=== PATIENT | female | born 1935 | race Caucasian/White ===

== ENCOUNTER 2023-06-27 11:23 | Emergency (ER) | payer OTHER, SELFPAY ==
[2023-06-27 11:31] VITALS: BP 124/65
[2023-06-27 12:10] VITALS: BMI 25.1
[2023-06-27 12:35] LABS: % Basophils 0.2 % (0-2); % Eosinophils 1.1 % (0-6); % Immature Granulocytes 0.5 % (0-0.5); % Monocytes 7.7 % (1.7-9.3); % Neutrophils 80.5 % (42.2-75.2); Absolute Eosinophils 0.1 10^3/uL (0-0.7); Absolute Lymphocytes 0.8 10^3/uL (1.2-3.4); Absolute Monocytes 0.6 10^3/uL (0.1-0.6); Absolute Neutrophils 6.6 10^3/uL (1.4-6.5); Hematocrit 23.9 % (37.0-47.0); Hemoglobin 7.3 g/dL (12.0-16.0); Mean Corp Hgb Conc. 30.5 g/dL (33.0-37.0); Mean Corpuscular Hgb 24.4 pg (27.0-31.0); Mean Corpuscular Volume 79.9 fL (81.0-99.0); Mean Platelet Volume 9.3 fL (7.4-10.4); Nucleated Red Blood Cells % 0 %; Platelet Count 268 10^3/uL (130-400); Red Blood Cell Count 2.99 10^6/uL (4.20-5.40); Red Cell Dist. Width 15.4 % (11.5-14.5); White Blood Cell Count 8.2 10^3/uL (4.8-10.8)
[2023-06-27 12:53] LABS: ALT (SGPT) 34 U/L (0-35); AST (SGOT) 29 U/L (14-36); Alkaline Phosphatase 115 U/L (38-126); Blood Urea Nitrogen 32 mg/dl (7-17); Calcium 8.3 mg/dl (8.4-10.2); Carbon Dioxide 26 mmol/L (22-30); Chloride 107 mmol/L (98-107); Estimated Creatinine Clearance 29 ml/min; Glucose 190 mg/dl (70-99); Potassium 4.3 mmol/L (3.5-5.1); Sodium 135 mmol/L (135-145); Total Bilirubin 0.6 mg/dl (0.2-1.3); Total Protein 5.1 g/dl (6.3-8.2); eGFR 44.08
[2023-06-27 13:24] VITALS: BP 129/51
[2023-06-27 14:00] VITALS: BP 139/61
[2023-06-27 14:01] LABS: Iron 33 ug/dl (37-170)
[2023-06-27 14:11] LABS: Percent Saturation 8 % (20-50); Total Iron Binding Capacity 370 ug/dl (265-497)
--- NOTE | 2023-06-27 14:13 | ED.GENMED ---
History of Present Illness
General
Chief Complaint: Abnormal Lab Value
Source: patient and family
Exam Limitations: none
Time Seen by Provider: 06/27/23 11:53
Travel History
Have you had any contact with someone who has COVID-19?: No
Do you have any symptoms of coronavirus? Fever > 100 degrees, chills, cough, shortness of breath, sore throat, loss of taste or smell, muscle aches, or headache?: No
History of Present Illness
History of Present Illness:
Patient presents to ED for evaluation after routine outpatient blood work revealed low hemoglobin. Denies dizziness or weakness. Denies shortness of breath. Denies fatigue. Denies recent illness. Denies recent change in medications or diet.
Patient does have history of anemia and takes iron supplement daily. Denies seeing blood with urination or in her colostomy bag.
Past History
Past History
ED Past Medical History: Arrthythmia, Cancer, CVA, HTN, Hypercholesterolemia, NIDDM and Other (Peripheral neuropathy due to chemotherapy)
ED Past Surgical History: Bowel resection
Social History
Tobacco: Non-smoker
Alcohol: None
Drug: None
Living: with family
Employment: Not employed
Family History
Family History: Hypertension
Review of Systems
Review of Systems
Allergies reviewed?: Yes
All Other Systems: ROS reviewed and negative except as documented in HPI and ROS
Constitutional: Reports no symptoms
EENT: Reports no symptoms
Respiratory: Reports no symptoms
Cardiac: Reports no symptoms
ABD/GI: Reports no symptoms
: Reports no symptoms
Musculoskeletal: Reports no symptoms
Skin: Reports no symptoms
Neurological: Reports no symptoms
Phy Exam
Physical Exam
Physical Exam:
Physical Exam
General: no apparent distress, not acutely ill. afebrile
Head: nc/at. eomi
Neck: supple. normal range of motion.
Heart: s1/s2 regular rate and rhythm, no murmur. equal radial pulses.
Lungs: no acute respiratory distress. clear bilaterally
Abdomen: normal bowel sounds. not tender.
Neuro: alert and oriented. no focal neurological deficits
Skin: no rash
Psychiatric: well kept. interactive and cooperative
Extremities: no edema. no calf tenderness.
Course
Orders/Labs/Results
Orders:
Orders
06/27/23 11:54
IV Insert/Care/Rem.- Treatment PRN
06/27/23 12:14
Type+Screen Urgent
Complete Blood Count/With Diff Urgent
Comprehensive Metabolic Panel Urgent
Ferritin Urgent
Comment: ADD ON
Iron Urgent
Comment: ADD ON
Total Iron Binding Urgent
Comment: ADD ON
06/27/23 12:52
Add On- LAB Urgent
Tests Added?: iron, tibc, ferritin
Abnormal Lab Results
06/27/23
12:14
RBC 2.99 L 10^6/uL
(4.20-5.40)
Hgb 7.3 L g/dL
(12.0-16.0)
Hct 23.9 L %
(37.0-47.0)
MCV 79.9 L fL
(81.0-99.0)
MCH 24.4 L pg
(27.0-31.0)
MCHC 30.5 L g/dL
(33.0-37.0)
RDW 15.4 H %
(11.5-14.5)
Absolute Neuts (auto) 6.6 H 10^3/uL
(1.4-6.5)
Absolute Lymphs (auto) 0.8 L 10^3/uL
(1.2-3.4)
Neutrophils % 80.5 H %
(42.2-75.2)
Lymphocytes % 10.0 L %
(20.5-51.1)
BUN 32 H mg/dl
(7-17)
Creatinine 1.2 H mg/dL
(0.6-1.0)
Glucose 190 H mg/dl
(70-99)
Calcium 8.3 L mg/dl
(8.4-10.2)
Iron 33 L ug/dl
(37-170)
% Saturation 8 L %
(20-50)
Total Protein 5.1 L g/dl
(6.3-8.2)
Albumin 3.0 L g/dl
(3.5-5.0)
06/27/23 12:14
06/27/23 12:14
Vital Signs
Initial and Last Documented VS:
Initial Vital Signs
Temp Pulse Resp BP Pulse Ox
97.8 F 75 20 124/65 98
06/27/23 11:31 06/27/23 11:31 06/27/23 11:31 06/27/23 11:31 06/27/23 11:31
Last Documented Vital Signs
Temp Pulse Resp BP Pulse Ox
97.8 F 60 20 139/61 97
06/27/23 11:31 06/27/23 14:15 06/27/23 14:15 06/27/23 14:00 06/27/23 14:15
MDM/Problems Addressed
MDM/Problems Addressed:
H&H noted. However, patient remains afebrile and he, hemodynamically stable, and nontoxic-appearing.
Discussed with Dr. Hensley, hematology -recommends increasing patient's iron supplement to 325 mg daily or 325 mg every other day, if unable to tolerate. Will follow-up with the patient as an outpatient, including potential iron infusion as an
outpatient, if patient does not respond appropriately.
*Critical Care Note
Total Time (30-74mins, 75-104mins- exclusive of procedures): Not Applicable
ED Attending Note
-
Portions of this chart may have been created with voice recognition software.� Occasional wrong word or��sound alike� substitutions may have occurred due to the inherent limitations of voice recognition software.
Discharge Plan
Departure
Patient Disposition: Home (Routine Discharge)
Date of Disposition: 06/27/23
Time of Disposition: 14:40
Patient with high blood pressure during this ER visit?: Yes
Discharge Problem:
Iron deficiency anemia
Instructions: Anemia, Possibly From Low Iron, Adult ED
Prescriptions:
No Action
Lumigan 1 DROP drops
1 drp BOTH EYES QPM
Xarelto 15 MG tablet
15 mg PO QPM
magnesium oxide 400 MG capsule
400 mg PO HS
Simbrinza 1 DROP drops,suspension
1 drp BOTH EYES BID
atorvastatin 40 MG tablet
40 mg PO QPM
amiodarone [Pacerone] 200 MG tablet
200 mg PO DAILY
levetiracetam [Keppra] 500 mg Tablet
500 mg PO BID
bumetanide 0.5 mg Tablet
0.5 mg PO QPM
multivitamin Tablet
1 tab PO DAILY
ferrous sulfate [Iron (ferrous sulfate)] 325 mg (65 mg iron) Tablet
325 mg PO DAILY
carvedilol 25 mg Tablet
25 mg PO BID
ascorbic acid (vitamin C) 500 mg Tablet
500 mg PO MOWEFR
cholecalciferol (vitamin D3) [Vitamin D3] 25 mcg (1,000 unit) Tablet
25 mcg PO DAILY
levothyroxine [Synthroid] 50 mcg Tablet
50 mcg PO DAILY
Referrals:
Yolis Caicedo MD [Family Provider] -
Willian Hensley MD [Active] -
Activity Restrictions/Additional Instructions:
As discussed, please follow up with referred child and adolescent therapist for further evaluation and treatment. In the meantime, please increase your iron intake to 325 mg daily or 325 mg every other day, if unable to tolerate. Please return to ED with worsening
symptoms, i.e. dizziness/weakness/shortness of breath/bleeding.
Interventions
Interventions:
*Risk Screen - Suicide Last Done: 06/27/23 15:29
*General Assessment Last Done: 06/27/23 15:29
*Neglect/Abuse Screening Last Done: 06/27/23 15:29
ED- Fall Risk Assessment Last Done: 06/27/23 15:29
*ED COVID-19 Vaccine History Last Done: 06/27/23 11:31
*Nursing Disposition Last Done: 06/27/23 15:29
Discharge Date and Time
Discharge Date/Time: 06/27/23 15:31
[2023-06-27 14:36] LABS: Ferritin 39.6 ng/ml (11.1-264.0)
== END 2023-06-27 15:31 | disposition home or self-care (01) ==
LOC: EMR 11:23
PROVIDERS: EMERGENCY PHYSICIAN Emergency Medicine; FAMILY PHYSICIAN Family Medicine
DX: D50.9 Iron deficiency anemia, unspecified (principal); E78.00 Pure hypercholesterolemia, unspecified; I10 Essential (primary) hypertension; Z82.49 Family history of ischemic heart disease and other diseases of the circulatory system; Z86.73 Personal history of transient ischemic attack (TIA), and cerebral infarction without residual deficits
CPT/HCPCS: 99283; 80053; 82728; 83540; 83550; 85025; 86850; 86900; 86901

== ENCOUNTER → 2023-07-09 12:09 | Outpatient (REF) | payer OTHER, SELFPAY ==
[2023-07-09 12:39] LABS: % Basophils 0.3 % (0-2); % Eosinophils 1.4 % (0-6); % Immature Granulocytes 0.8 % (0-0.5); % Lymphocytes 9.3 % (20.5-51.1); % Monocytes 6.1 % (1.7-9.3); % Neutrophils 82.1 % (42.2-75.2); Absolute Eosinophils 0.1 10^3/uL (0-0.7); Absolute Immature Granulocytes 0.1 10^3/uL (0-0.05); Absolute Lymphocytes 0.7 10^3/uL (1.2-3.4); Absolute Monocytes 0.5 10^3/uL (0.1-0.6); Absolute Neutrophils 6.4 10^3/uL (1.4-6.5); Hematocrit 23.4 % (37.0-47.0); Mean Corp Hgb Conc. 29.9 g/dL (33.0-37.0); Mean Corpuscular Hgb 24.3 pg (27.0-31.0); Mean Corpuscular Volume 81.3 fL (81.0-99.0); Mean Platelet Volume 9.7 fL (7.4-10.4); Nucleated Red Blood Cells % 0 %; Platelet Count 294 10^3/uL (130-400); Red Blood Cell Count 2.88 10^6/uL (4.20-5.40); Red Cell Dist. Width 18.4 % (11.5-14.5); White Blood Cell Count 7.8 10^3/uL (4.8-10.8)
[2023-07-09 12:46] LABS: Iron 37 ug/dl (37-170)
[2023-07-09 12:56] LABS: Percent Saturation 9 % (20-50); Total Iron Binding Capacity 374 ug/dl (265-497)
[2023-07-09 18:33] LABS: Ferritin 54.4 ng/ml (11.1-264.0)
== END ==
LOC: OIDL 12:09
PROVIDERS: ATTENDING PHYSICIAN Nurse Practitioner Adult Health
DX: C55 Malignant neoplasm of uterus, part unspecified (principal); C20 Malignant neoplasm of rectum; D50.9 Iron deficiency anemia, unspecified
CPT/HCPCS: 82728; 83540; 83550; 85025

== ENCOUNTER → 2023-07-16 11:28 | Outpatient (REF) | payer OTHER, SELFPAY ==
[2023-07-16 11:05] LABS: % Basophils 0.4 % (0-2); % Eosinophils 0.9 % (0-6); % Immature Granulocytes 0.6 % (0-0.5); % Lymphocytes 6.7 % (20.5-51.1); % Monocytes 5.5 % (1.7-9.3); % Neutrophils 85.9 % (42.2-75.2); Absolute Eosinophils 0.1 10^3/uL (0-0.7); Absolute Immature Granulocytes 0.1 10^3/uL (0-0.05); Absolute Lymphocytes 0.6 10^3/uL (1.2-3.4); Absolute Monocytes 0.5 10^3/uL (0.1-0.6); Hemoglobin 7.1 g/dL (12.0-16.0); Mean Corp Hgb Conc. 28.4 g/dL (33.0-37.0); Mean Corpuscular Hgb 24.4 pg (27.0-31.0); Mean Corpuscular Volume 85.9 fL (81.0-99.0); Mean Platelet Volume 9.4 fL (7.4-10.4); Nucleated Red Blood Cells % 0 %; Platelet Count 291 10^3/uL (130-400); Red Blood Cell Count 2.91 10^6/uL (4.20-5.40); Red Cell Dist. Width 22.1 % (11.5-14.5); White Blood Cell Count 8.2 10^3/uL (4.8-10.8)
[2023-07-16 11:37] LABS: Vitamin D, 25-OH*** 52.5 ng/mL (30-80)
== END ==
LOC: OIDL 11:28
PROVIDERS: ATTENDING PHYSICIAN Internal Medicine Hematology & Oncology
DX: C55 Malignant neoplasm of uterus, part unspecified (principal)
CPT/HCPCS: 82306; 85025

== ENCOUNTER → 2023-07-23 15:24 | Outpatient (REF) | payer OTHER, SELFPAY ==
[2023-07-23 11:33] LABS: Phosphorus 2.5 mg/dl (2.5-4.5)
[2023-07-23 11:34] LABS: % Basophils 0.4 % (0-2); % Eosinophils 1.4 % (0-6); % Immature Granulocytes 0.7 % (0-0.5); % Lymphocytes 6.8 % (20.5-51.1); % Neutrophils 85.7 % (42.2-75.2); Absolute Eosinophils 0.1 10^3/uL (0-0.7); Absolute Immature Granulocytes 0.1 10^3/uL (0-0.05); Absolute Lymphocytes 0.6 10^3/uL (1.2-3.4); Absolute Monocytes 0.4 10^3/uL (0.1-0.6); Hematocrit 27.4 % (37.0-47.0); Hemoglobin 7.8 g/dL (12.0-16.0); Mean Corp Hgb Conc. 28.5 g/dL (33.0-37.0); Mean Corpuscular Hgb 25.2 pg (27.0-31.0); Mean Corpuscular Volume 88.7 fL (81.0-99.0); Mean Platelet Volume 9.8 fL (7.4-10.4); Nucleated Red Blood Cells % 0 %; Platelet Count 286 10^3/uL (130-400); Red Blood Cell Count 3.09 10^6/uL (4.20-5.40); Red Cell Dist. Width 25.4 % (11.5-14.5); White Blood Cell Count 8.1 10^3/uL (4.8-10.8)
== END ==
LOC: OIDL 15:24
PROVIDERS: ATTENDING PHYSICIAN Nurse Practitioner Adult Health
DX: C55 Malignant neoplasm of uterus, part unspecified (principal)
CPT/HCPCS: 84100; 85025

== ENCOUNTER → 2023-08-29 16:07 | Outpatient (REF) | payer OTHER, SELFPAY ==
[2023-08-29 16:31] LABS: % Basophils 0.2 % (0-2); % Eosinophils 0.5 % (0-6); % Immature Granulocytes 0.7 % (0-0.5); % Lymphocytes 3.4 % (20.5-51.1); % Neutrophils 90.2 % (42.2-75.2); Absolute Eosinophils 0.1 10^3/uL (0-0.7); Absolute Immature Granulocytes 0.1 10^3/uL (0-0.05); Absolute Lymphocytes 0.4 10^3/uL (1.2-3.4); Absolute Monocytes 0.5 10^3/uL (0.1-0.6); Absolute Neutrophils 9.3 10^3/uL (1.4-6.5); Hematocrit 40.9 % (37.0-47.0); Hemoglobin 12.1 g/dL (12.0-16.0); Mean Corp Hgb Conc. 29.6 g/dL (33.0-37.0); Mean Corpuscular Hgb 27.5 pg (27.0-31.0); Mean Platelet Volume 9.9 fL (7.4-10.4); Nucleated Red Blood Cells % 0 %; Platelet Count 233 10^3/uL (130-400); White Blood Cell Count 10.4 10^3/uL (4.8-10.8)
[2023-08-29 16:43] LABS: Blood Urea Nitrogen 25 mg/dl (7-17); Calcium 9.5 mg/dl (8.4-10.2); Carbon Dioxide 33 mmol/L (22-30); Chloride 101 mmol/L (98-107); Glucose 165 mg/dl (70-99); Sodium 138 mmol/L (135-145); eGFR > 60.00
[2023-08-29 16:49] LABS: Potassium 4.4 mmol/L (3.5-5.1)
[2023-08-29 17:00] LABS: NT-proBNP 2300 pg/ml
== END ==
LOC: REG 16:07
PROVIDERS: ATTENDING PHYSICIAN Family Medicine
DX: I50.41 Acute combined systolic (congestive) and diastolic (congestive) heart failure (principal); D64.9 Anemia, unspecified
CPT/HCPCS: 36415; 71046; 80048; 83880; 85025

== ENCOUNTER 2023-08-31 06:35 | Inpatient (IN) | payer OTHER, SELFPAY ==
[2023-08-31] VITALS (15 sets, daily range): BP systolic 101–154; BP diastolic 53–81; BMI 29.7; BMI 28.9
--- NOTE | 2023-08-31 04:32 | ED.GENMED ---
History of Present Illness
General
Chief Complaint: Breathing Problem
Source: patient
Exam Limitations: none
Time Seen by Provider: 08/31/23 04:27
Nursing documentation reviewed up to this point in time: agreed with
Travel History
Have you had any contact with someone who has COVID-19?: No
Do you have any symptoms of coronavirus? Fever > 100 degrees, chills, cough, shortness of breath, sore throat, loss of taste or smell, muscle aches, or headache?: No
History of Present Illness
History of Present Illness:
Pleasant 88-year-old female that presents with difficulty breathing. This has been going on for several days but tonight it worsened. She does report a cough. Patient had a COVID test yesterday which was negative. She has been treated by
[facility] for iron deficiency anemia. She is taking the medications as directed. Denies chest pain or abdominal pain.
Past History
Past History
ED Past Medical History: Arrthythmia, Cancer, CVA, HTN, Hypercholesterolemia, NIDDM and Other (Peripheral neuropathy due to chemotherapy)
ED Past Surgical History: Bowel resection
Social History
Tobacco: Non-smoker
Alcohol: None
Drug: None
Living: with family
Employment: Not employed
Family History
Family History: Hypertension
Phy Exam
General Physical Exam
General Presentation: moderate distress and mild distress
General age: appears older than age
General Skin: warm and dry
General Habitus: elderly and frail
General Mental: alert and usual mental status
General Hydration: appears well hydrated
ENT Exam
ENT Exam: EOMI, pharynx normal, neck supple and normocephalic
Eye Exam
Eye Exam: PERRL, cornea clear and conjunctiva normal
Cardiovascular Exam
Cardiovascular Exam: regular rate/rhythm
Pulmonary Exam
Pulmonary Exam: generalized wheezing and respiratory distress
Oxygen Status: oxygen 2 liters via NC
Gastrointestinal Exam
Gastrointestinal Exam: normal bowel sounds, non tender, soft, no organomegaly, no pulsatile mass and non distended
Neurological Exam
Neurological Exam: alert, oriented x3, no motor deficits and speech normal
Musculoskeletal Exam
Musculoskeletal Exam: edema
Skin Exam
Skin Exam: normal color, warm/dry, no rash and no petechia
Psychiatric Exam
Psychiatric Exam: normal mood/affect
Scores
Heart Failure Risk
Heart Failure Risk Score: Yes
History of Stroke or TIA: Yes
History of intubation for respiratory distress: No
Heart rate on ED arrival >/= 110: No
SaO2 <90% on arrival on room air: Yes
HR >/=110 during 3min walk test (or too ill to perform test): Yes
ECG has acute ischemic changes: No
Urea >/=12mmol/L (BUN 33.6mg/dL): Yes
Serum CO2>/=35mmol/L: No
Troponin I or T elevated to LA Level (0.4mg/dL): No
NT-proBNP >/=5,000ng/L (5,000pg/ml): No
HF Risk Score: 5
Admission Status: VERY HIGH RISK 39.8% Consider admission to hospital
Course
Orders/Labs/Results
Orders:
Orders
08/31/23 04:37
Ipratropium/Albuterol Sulfate [Duoneb] 3 ml .ROUTE .STK-MED ONE
08/31/23 04:42
CR Chest Portable - 1 View Urgent
Comment:
Reason For Exam: dyspnea
Reason Study Needs to be Portable: Patient Unstable
08/31/23 04:44
Electrocardiogram (*1) Urgent
Reason for Study: Other
Other Reason for Exam: Respiratory Distress
Cardiac Monitoring- Treatment ONCE
EKG- Treatment ONCE
Pulse Ox/cont/shift [RESP] Urgent
Quantity: 1
Special Instructions: continuous pulse ox
08/31/23 04:45
Complete Blood Count/With Diff Urgent
Comprehensive Metabolic Panel Urgent
Ferritin Urgent
Free T4 Urgent
Iron Urgent
Lipase Urgent
NT-proBNP Urgent
Comment: ADDED
PTT Urgent
Prothrombin Time Urgent
TSH Reflex To Free T4 Urgent
Comment: ADD ON
Total Iron Binding Urgent
Troponin I Urgent
08/31/23 04:54
Albuterol Sulfate [Ventolin Nebules] 10 mg INH R NOW STA
Dexamethasone Sod Phosphate [Decadron] 10 mg IV NOW STA
08/31/23 04:55
Ipratropium/Albuterol Sulfate [Duoneb] 3 ml INH R NOW ONE
08/31/23 05:24
Add On- LAB Urgent
Tests Added?: pro bnp
08/31/23 06:05
ABG [Arterial Blood Gas] Stat
%Oxygen/Room Air: 60% on arrival
08/31/23 06:14
Add On- LAB Urgent
Tests Added?: procalcitonin level
08/31/23 06:19
Admit/Transfer Patient As Directed
Co-Sign Provider:
Level of Care: Inpatient admission
Assign to:: IMU- Intermediate Care
Physician / Group: [email or web address]
Diagnosis: Acute resp distress : see below
Reason for Hospitalization: Acute resp distress with bronchospasm
Acute hypoxic RF
CHF falre vs PNA vs acute asthmatic bronchitis
Expected length of stay greater than two midnights?: Yes
ELOS- Estimated Length of Stay in days: 5
I certify the patient meets the requirements for IP care: Yes
08/31/23 06:21
Code Status As Directed
Resuscitation Status: Full Code
08/31/23 06:26
Dexamethasone Sod Phosphate [Decadron] 10 mg IV NOW STA
08/31/23 06:32
Furosemide [Lasix] 40 mg IV NOW STA
08/31/23 06:41
Procalcitonin Urgent
Comment: PLEASE DRAW; TOO LATE TO ADD ON TO EARLIER LABS
08/31/23 08:32
Acetaminophen [Tylenol] 650 mg PO Q4HPRN PRN
Amiodarone [Pacerone] 200 mg PO DAILY
Brinzolamide/Brimonidine Tart [Simbrinza 1%-0.2% Ophth Susp] 1 drop BOTH EYES BID
Carvedilol [Coreg] 25 mg PO BID
Dextrose 50%-Water [Dextrose 50% Syringe] 12.5 grams IV [id number] PRN
Furosemide [Lasix] 40 mg IV DAILY
Glucagon [GlucaGen] 1 mg IM PRN PRN
Insulin Aspart Corrective Low [Novolog Flexpen-Low Resistance] See Protocol SC AC
Ipratropium/Albuterol Sulfate [Duoneb] 3 ml INH R Q4HPRN PRN
Ipratropium/Albuterol Sulfate [Duoneb] 3 ml INH R QID
Levetiracetam [Keppra] 500 mg PO BID
Levothyroxine [Synthroid] 50 mcg PO DAILY@0730
08/31/23 08:32
CARDIOLOGY CONSULT Routine
Consulting Provider: Jeff Salazar
Was physician already notified: No
Reason for consult: Acute resp distress : CHF flare, acute asthmatic bronchitis, vol. overload
Consult Notification Routine
Specialty to Notify: Cardiology
Date consulting provider notified: 08/31/23
Time consulting provider notified: 08:40
Notified:: Provider
Consult Notification Routine
Specialty to Notify: Pulmonary
Date consulting provider notified: 08/31/23
Time consulting provider notified: 08:40
Notified:: Provider
Activity As Directed
Activity Level: Bedrest
Bedside Glucose Monitoring As Directed
Frequency: AC&HS
Comment: Change to q6h if pt on TPN, tube feeding or not eating
Compression Sleeves [Pneumatic Compression Sleeves] As Directed
Type: Knee high
Intake/ Output As Directed
Frequency: Per unit guidelines
Vital Signs As Directed
Frequency: Per unit guidelines
Weight As Directed
Frequency: Once
Comment: on admission
Pulse Ox/spot Check [RESP] Routine
Quantity: 1
08/31/23 14:00
Dexamethasone Sod Phosphate [Decadron] 4 mg IV Q8H
08/31/23 18:00
Atorvastatin [Lipitor] 40 mg PO QPM
Bimatoprost [Lumigan 0.01%] 1 drop BOTH EYES QPM
08/31/23 19:23
Urinalysis Reflex To Culture Urgent
Date Specimen was Collected: 08/31/23
Time Specimen was Collected: 18:42
09/01/23 03:53
Complete Blood Count/No Diff IN AM
Comprehensive Metabolic Panel IN AM
Glycohemoglobin (HgbA1c) IN AM
Abnormal Lab Results
08/31/23 08/31/23
04:45 06:05
WBC 11.5 H 10^3/uL
(4.8-10.8)
Hgb 11.5 L g/dL
(12.0-16.0)
MCHC 30.1 L g/dL
(33.0-37.0)
RDW 17.8 H %
(11.5-14.5)
Abs Immat Gran (auto) 0.1 H 10^3/uL
(0-0.05)
Absolute Neuts (auto) 10.0 H 10^3/uL
(1.4-6.5)
Absolute Lymphs (auto) 0.5 L 10^3/uL
(1.2-3.4)
Absolute Monos (auto) 0.8 H 10^3/uL
(0.1-0.6)
Immature Gran % 0.8 H %
(0-0.5)
Neutrophils % 87.0 H %
(42.2-75.2)
Lymphocytes % 4.5 L %
(20.5-51.1)
PT 14.8 H Sec
(11.4-14.6)
pH 7.30 L
(7.35-7.45)
pCO2 64 H mmHg
(32-35)
pO2 114 H mmHg
(83-108)
HCO3 31.5 H mmol/L
(21-28)
ABG O2 Sat (Measured) 98.1 H %
(94-98)
Carbon Dioxide 31 H mmol/L
(22-30)
BUN 33 H mg/dl
(7-17)
Glucose 169 H mg/dl
(70-99)
% Saturation 14 L %
(20-50)
Ferritin 326.0 H ng/ml
(11.1-264.0)
AST 62 H U/L
(14-36)
ALT 71 H U/L
(0-35)
Alkaline Phosphatase 159 H U/L
(38-126)
Total Protein 5.5 L g/dl
(6.3-8.2)
Albumin 3.2 L g/dl
(3.5-5.0)
TSH (Reflex) 5.30 H uIU/ml
(0.47-4.68)
Free T4 2.72 H ng/dl
(0.78-2.19)
08/31/23 04:45
08/31/23 04:45
Vital Signs
Initial and Last Documented VS:
Initial Vital Signs
Pulse Resp BP Pulse Ox
75 28 129/75 93
08/31/23 04:17 08/31/23 04:17 08/31/23 04:17 08/31/23 04:17
Last Documented Vital Signs
Temp Pulse Resp BP Pulse Ox
96.8 F L 62 17 128/64 96
09/02/23 19:18 09/02/23 20:45 09/02/23 20:45 09/02/23 20:00 09/02/23 20:45
*Critical Care Note
Total Time (30-74mins, 75-104mins- exclusive of procedures): Not Applicable
ED Attending Note
-
Portions of this chart may have been created with voice recognition software.� Occasional wrong word or��sound alike� substitutions may have occurred due to the inherent limitations of voice recognition software.
Discharge Plan
Departure
Patient Disposition: Admit
Date of Disposition: 08/31/23
Time of Disposition: 05:57
Admit to: Telemetry
Presentation/result/management discussed w/ accepting MD/DO: Hospitalist
Patient with high blood pressure during this ER visit?: Yes
Condition: Good
Discharge Problem:
Acute dyspnea, CHF (congestive heart failure)
Interventions
Interventions:
*Risk Screen - Suicide Last Done: 08/31/23 04:17
*General Assessment Last Done: 08/31/23 04:43
*Neglect/Abuse Screening Last Done: 08/31/23 04:20
ED- Fall Risk Assessment Last Done: 08/31/23 08:38
*ED COVID-19 Vaccine History Last Done: 08/31/23 09:40
*Nursing Disposition Last Done: 08/31/23 08:38
ED- Cardiac Assessment Last Done: 08/31/23 05:11
ED- Pulmonary Assessment Last Done: 08/31/23 05:09
Discharge Date and Time
Discharge Date/Time: 08/31/23 08:38
[2023-08-31] MEDS: DUONEB 3 ML INH ×4 (04:56→20:53)
[2023-08-31 04:59] LABS: % Basophils 0.3 % (0-2); % Eosinophils 0.9 % (0-6); % Immature Granulocytes 0.8 % (0-0.5); % Lymphocytes 4.5 % (20.5-51.1); % Monocytes 6.5 % (1.7-9.3); Absolute Eosinophils 0.1 10^3/uL (0-0.7); Absolute Immature Granulocytes 0.1 10^3/uL (0-0.05); Absolute Lymphocytes 0.5 10^3/uL (1.2-3.4); Absolute Monocytes 0.8 10^3/uL (0.1-0.6); Hematocrit 38.2 % (37.0-47.0); Hemoglobin 11.5 g/dL (12.0-16.0); Mean Corp Hgb Conc. 30.1 g/dL (33.0-37.0); Mean Corpuscular Hgb 27.4 pg (27.0-31.0); Mean Platelet Volume 9.6 fL (7.4-10.4); Nucleated Red Blood Cells % 0 %; Platelet Count 206 10^3/uL (130-400); Red Cell Dist. Width 17.8 % (11.5-14.5); White Blood Cell Count 11.5 10^3/uL (4.8-10.8)
[2023-08-31] MEDS: DECADRON 10 MG IV (05:03)
[2023-08-31] MEDS: VENTOLIN NEBULES 10 MG INH (05:04)
[2023-08-31 05:10] LABS: ALT (SGPT) 71 U/L (0-35); AST (SGOT) 62 U/L (14-36); Albumin 3.2 g/dl (3.5-5.0); Alkaline Phosphatase 159 U/L (38-126); Blood Urea Nitrogen 33 mg/dl (7-17); Carbon Dioxide 31 mmol/L (22-30); Chloride 106 mmol/L (98-107); Estimated Creatinine Clearance 41 ml/min; Glucose 169 mg/dl (70-99); Iron 42 ug/dl (37-170); Lipase 37 U/L (23-300); Potassium 4.2 mmol/L (3.5-5.1); Sodium 138 mmol/L (135-145); Total Bilirubin 0.8 mg/dl (0.2-1.3); Total Protein 5.5 g/dl (6.3-8.2); eGFR 54.87
[2023-08-31 05:19] LABS: Percent Saturation 14 % (20-50); Total Iron Binding Capacity 290 ug/dl (265-497)
[2023-08-31 05:21] LABS: Troponin I < 0.012 ng/ml
[2023-08-31 05:24] LABS: APTT 31.3 Sec (23.4-35.0); INR 1.15; PT 14.8 Sec (11.4-14.6)
[2023-08-31 05:52] LABS: NT-proBNP 1930 pg/ml
--- NOTE | 2023-08-31 06:15 | HPS.HSE ---
Family Physician
-
Family Physician: Yolis Caicedo
Chief Complaint
-
acute resp distress
History of Present Illness
88F HX HFrEF, ICD implant , T2DM, CKD3 pw acute resp distress , tachypnic, SoB, cough and wheezing
NEG Covid on 08/29
POx on arrival was 60s.
Medical History
Past Medical History
Past Medical History: Reports Other
Additional Past Medical History:
CHF with ICD placement
Type 2 diabetes, suboptimal controlled.
CKD3
Abdominal aortic aneurysm.
Hemolytic anemia.
Hyponatremia.
Essential hypertension.
Paroxysmal AF
HX epistaxis
Past Surgical History: Reports Other
Additional Past Surgical History:
Rectal cancer resection.
Ostomy creation.
ICD placement.
Hysterectomy with Oophorectomy.
Cataract extraction.
Tonsillectomy.
Appendectomy.
Social History
Tobacco: Non-smoker
Alcohol: None
Drug: None
Personal:
Living: With Family
Family History
Family History: Not pertinent
Allergies / Home Medications
Allergies reflects when Allergies were last updated in [facility].
Home Medications with original date entered in [facility]
Allergy/Medication List:
Allergies
Allergy/AdvReac Type Severity Reaction Status Date / Time
amoxicillin Allergy Unknown Verified 08/31/23 04:16
erythromycin base Allergy avoids Verified 08/31/23 04:16
[Erythromycin Base] patient
taking
vytorin
Penicillins Allergy Swelling Verified 08/31/23 04:16
venom-honey bee Allergy Anaphylaxis Verified 08/31/23 04:16
[bee venom (honey bee)]
Beta-Blockers AdvReac coughing Verified 08/31/23 04:16
(Beta-Adrenergic Bloc
insect bites Allergy Swelling Uncoded 08/31/23 04:16
Home Medications
amiodarone 200 mg tablet (Pacerone) 200 mg PO DAILY Arrhythmia 11/04/20
atorvastatin 40 mg tablet 40 mg PO QPM High cholesterol 11/04/20
bimatoprost 0.01 % eye drops (Lumigan) 1 drp BOTH EYES QPM Eye condition 11/04/20
brinzolamide 1 %-brimonidine 0.2 % eye drops,suspension (Simbrinza) 1 drp BOTH EYES BID Eye condition 11/04/20
magnesium oxide 400 mg PO HS Supplement 11/04/20
bumetanide 0.5 mg tablet 0.5 mg PO QPM 12/04/22
levetiracetam 500 mg tablet (Keppra) 500 mg PO BID 12/04/22
multivitamin 1 tab PO DAILY 12/04/22
ascorbic acid (vitamin C) 500 mg tablet 500 mg PO MOWEFR 02/18/23
carvedilol 25 mg tablet 25 mg PO BID 02/18/23
cholecalciferol (vitamin D3) 25 mcg (1,000 unit) tablet (Vitamin D3) 25 mcg PO DAILY 02/18/23
levothyroxine 50 mcg tablet (Synthroid) 50 mcg PO DAILY 06/27/23
Review of Systems
-
Constitutional: Reports No Symptoms
EENT: Reports No Symptoms
Respiratory: Reports See HPI
Cardiac: Reports No Symptoms
Abdomen/GI: Reports No Symptoms
: Reports No Symptoms
Musculoskeletal: Reports No Symptoms
Skin: Reports No Symptoms
Neurological: Reports No Symptoms
Endocrine: Reports No Symptoms
Hematologic/Lymphatic: Reports No Symptoms
Psych: Reports No Symptoms
Physical Exam
Vital Signs
Vital Signs
Pulse Resp BP Pulse Ox
60 20 112/60 99
08/31/23 06:00 08/31/23 06:00 08/31/23 06:00 08/31/23 05:15
Physical Exam
General: Respiratory Distress
HEENT: NormoCephalic, Anicteric and Moist mucous membranes
Respiratory: Wheezes (biphasic )
Cardiac: S1/S2, Regular Rhythm and Other (V paced rythym )
Breast: Deferred by me
GI: Soft, Non Tender and Non Distended
Genito-urinary: Deferred by me
Musculoskeletal: Edema, Left Lower Extremity (3plus) and Edema, Right Lower Extremity (3plus )
Skin: Warm
Neuro: AO x 3
Psych: Calm
Laboratory Results
-
08/31/23 04:45
08/31/23 04:45
Laboratory Results
PT 14.8 Sec (11.4-14.6) H 08/31/23 04:45
INR 1.15 08/31/23 04:45
APTT 31.3 Sec (23.4-35.0) 08/31/23 04:45
Total Bilirubin 0.8 mg/dl (0.2-1.3) 08/31/23 04:45
AST 62 U/L (14-36) H 08/31/23 04:45
ALT 71 U/L (0-35) H 08/31/23 04:45
Alkaline Phosphatase 159 U/L (38-126) H 08/31/23 04:45
Troponin I < 0.012 ng/ml 08/31/23 04:45
Lipase 37 U/L (23-300) 08/31/23 04:45
Data Reviewed
-
Diagnostic Radiology: Image Personally Visualized and interpreted
Medical Tests (Nuc Med, Echo, EKG etc): Image Personally Visualized and interpreted
Lab Data: Labs Reviewed by me
Old Records: Reviewed
Impression/Plan
-
Reviewed VS: Temp ( ? ) HR 70 BP 120/80 RR 33 POx 60 on arrival , now 90 %
Data
WCC 11.5
Hgb 11.5 - was 12.1 on 08/28
CO2 31 - baseline is mid 20s
Cr 1.0 - baseline mid to hi 1s ??
eGFR 55 - baseline is mid 40s
AST 62
ALT 71
NEG TPNI
pBNP 1930 - usually 2300
Pending PCT
My view on CXR ??? CHF
EKG report
Ventricular-paced rhythm
ABNORMAL ECG
WHEN COMPARED WITH ECG OF 04-DEC-2022 08:57,
NO SIGNIFICANT CHANGE WAS FOUND
10/03/21 TTE
LVEF 40-45
mild LVH
Diastolic function indeterminate (AF).
Mild to moderate mitral regurgitation.
Mild aortic stenosis.
Mild aortic regurgitation.
Mild tricuspid regurgitation.
Small pericardial effusion.
Last hospitalist admission: 11/04/20 - 11/10/20 DC Dxs:
Multifactorial, progressive bilateral lower extremity weakness du to advanced Lumbar spinal stenosis, advanced.
Multifactorial peripheral neuropathy
JARED
ASSESSMENT & PLAN
Acute Resp distress with bronchospasm : CHF flare precipitated by acute asthmatic bronchitis +/_ Rt sided PNA
Acute hypoxic RF with bronchospasm
Hypercarbia - CO2 retention vs contraction alkalosis
HX CHF with LVEF 40-45 with stable pro BNP
Volume overload
- stat ABG
- check PCT
- Empiric IV Zosyn pending PCT
- IV Lasix 40 daily
Duoneb qid and PRB
- IV Decadron 4mg q8h
- O2 support to keep POx > 93
- f/u final CXR repor
- Consult: Pul, DCA Card
Abn LFTs; mild
suspect hepatic congestion to CHF AE
- tremnd LFts
HX Prx AF
ICD implant
- Non longer on Xarelto due to sevee anemia and concern for GIB
- Amiodarone and Carvedilol
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
HLD:
CHF with ICD placement : on Bumex and carvedilol
Type 2 diabetes,: add ISS low
CKD3
Hypothyroid: on LT4
Abdominal aortic aneurysm.
Essential hypertension.
HX epistaxis
- cont OP Meds
DVT Px; SQH
Code: full
IMU
[2023-08-31 06:22] LABS: B.E. 3.7 mmol/L; HCO3 31.5 mmol/L (21-28); O2 Saturation % 98.1 % (94-98); PCO2 64 mmHg (32-35); PO2 114 mmHg (83-108)
[2023-08-31 06:24] LABS: O2 Therapy 60% on arrival
[2023-08-31 07:16] LABS: Procalcitonin < 0.05 ng/ml (0.0-0.25)
[2023-08-31] MEDS: SYNTHROID 50 MCG PO (08:55)
[2023-08-31] MEDS: LASIX 40 MG IV (09:30)
[2023-08-31] MEDS: KEPPRA 500 MG PO ×2 (09:31→20:13)
[2023-08-31] MEDS: PACERONE 200 MG PO (09:31)
[2023-08-31] MEDS: DUONEB INH (09:31)
[2023-08-31] MEDS: COREG 25 MG PO ×2 (09:32→20:13)
[2023-08-31] MEDS: HEPARIN 5000 UNITS SC ×2 (09:32→20:12)
[2023-08-31] MEDS: FLUSH (NSS) 1 FLUSH IV ×2 (09:33→15:45)
--- NOTE | 2023-08-31 09:41 | CON.CAR ---
Addendum entered and electronically signed by Jeff Salazar MD 08/31/23 12:48:
I saw and examined the patient.
The Ground Equipment Mechanic's note was reviewed and I agree with the note.
Comment:
GEN: No distress, awake, Ox3
HEENT: supple, anicteric, mmm
LUNGS: Bilateral rhonchi
CV: Reg, S1/S2, 1/6 syst LSB, S3+
ABD: soft, BS+, NT/ND
EXT: No edema
NEURO: Gross non-focal
SKIN: No rash
Plan:
She has a past medical history of chronic heart failure with mildly reduced ejection fraction, ICD, paroxysmal atrial fibrillation, hypertension, diabetes, and iron deficiency anemia. She presents with 5 to 6 pound weight gain, shortness of breath,
fatigue, and dyspnea on exertion. Chest x-ray suggests pulmonary vascular congestion and a small pleural effusion. Patient states she has been compliant with her diuretics.
Start Lasix 40 mg IV twice daily. Follow creatinine.
She remains AV paced. Continue amiodarone. Anticoagulation which was stopped because of anemia. Hemoglobin is overall stable at 11.5. Previous hemoglobins were in the 7 range.
Continue carvedilol. She has not tolerated guideline directed medical therapy in the past because of renal insufficiency. Will follow her creatinine for the next 24 hours or so. Could consider adding low-dose WALKER inhibitor to start.
Will hold on Jardiance for now with frequent urinary issues
Original Note:
Consultation
Consultation Request
Date/Time Consultation Performed: 08/31/23
Requesting Provider: Dr. Concepcion
Performing Provider: Tori Garcia PA-C for Dr. Salazar
Reason for Consultation: CHF
Medical History
-
Chief Complaint: SOB
History of Present Illness:
Patient is an 88-year-old female with past medical history of paroxysmal atrial fibrillation on chronic amiodarone therapy, cardiomyopathy with partial recovery with EF 40 to 45% by echo in 2021, chronic systolic congestive heart failure, status
post ICD, hypertension, hyperlipidemia, DM, TIA/CVA, iron deficiency anemia with Xarelto stopped 06/2023 who presents to [facility] for evaluation of shortness of breath and cough. Reports over the last week has noted worsening lower
extremity edema. Also has noted 5 to 6 pound weight gain. She was seen by PCP on Sunday for symptoms and ordered chest x-ray and blood work. proBNP 1900. Chest x-ray with concern for mild pulmonary vascular congestion, small left pleural
effusion. Cardiology consulted for evaluation. Patient has been compliant with Bumex 0.5 mg daily as an outpatient.
PMH:
Chronic systolic congestive heart failure
History of cardiomyopathy with partial recovery, EF 40 to 45% by echo in 2021
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
Paroxysmal atrial fibrillation
Chronic amiodarone therapy
Prior Xarelto use, stopped 06/2023 due to anemia/thrombocytopenia
Iron deficiency anemia
Hypertension
Hyperlipidemia
Diabetes
CKD
History of TIA/CVA
History of partial motor seizure disorder
History of retinal artery branch occlusion in 2014
History of rheumatic fever as a child
Peripheral polyneuropathy
History of uterine cancer in 1989 status post hysterectomy and bilateral salpingo-oophorectomy
History of rectal cancer status postchemotherapy with 5�FEU, leucovorin, oxaliplatin
Past Medical History
Past Medical History: Other (in HPI)
Social History
Tobacco: Non-Smoker
Alcohol: None
Living: With Family
Employment: Retired
Allergies / Home Medications
Allergy/AdvReac Type Severity Reaction Status Date / Time
amoxicillin Allergy Unknown Verified 08/31/23 04:16
erythromycin base Allergy avoids Verified 08/31/23 04:16
[Erythromycin Base] patient
taking
vytorin
Penicillins Allergy Swelling Verified 08/31/23 04:16
venom-honey bee Allergy Anaphylaxis Verified 08/31/23 04:16
[bee venom (honey bee)]
Beta-Blockers AdvReac coughing Verified 08/31/23 04:16
(Beta-Adrenergic Bloc
insect bites Allergy Swelling Uncoded 08/31/23 04:16
�Medication �Instructions �Recorded �Confirmed �Type
amiodarone 200 mg tablet (Pacerone) 200 mg PO DAILY Arrhythmia 11/04/20 08/31/23 History
atorvastatin 40 mg tablet 40 mg PO QPM High cholesterol 11/04/20 08/31/23 History
bimatoprost 0.01 % eye drops 1 drp BOTH EYES QPM Eye condition 11/04/20 08/31/23 History
(Lumigan)
brinzolamide 1 %-brimonidine 0.2 % 1 drp BOTH EYES BID Eye condition 11/04/20 08/31/23 History
eye drops,suspension (Simbrinza)
magnesium oxide 400 mg PO HS Supplement 11/04/20 08/31/23 History
bumetanide 0.5 mg tablet 0.5 mg PO QPM Fluid 12/04/22 08/31/23 History
Retention/Swelling
levetiracetam 500 mg tablet 500 mg PO BID 12/04/22 08/31/23 History
(Keppra)
multivitamin 1 tab PO DAILY Supplement 12/04/22 08/31/23 History
ascorbic acid (vitamin C) 500 mg 500 mg PO MOWEFR Supplement 02/18/23 08/31/23 History
tablet
carvedilol 25 mg tablet 25 mg PO BID Blood Pressure 02/18/23 08/31/23 History
cholecalciferol (vitamin D3) 25 25 mcg PO DAILY Supplement 02/18/23 08/31/23 History
mcg (1,000 unit) tablet (Vitamin
D3)
levothyroxine 50 mcg tablet 50 mcg PO DAILY Thyroid 06/27/23 08/31/23 History
(Synthroid)
Review of Systems
-
History Source: Patient and Family
All other systems: Negative unless noted
Physical Exam
Vital Signs
Temp Pulse Resp BP Pulse Ox
95.9 F L 66 15 154/71 100
08/31/23 08:50 08/31/23 08:27 08/31/23 08:27 08/31/23 08:35 08/31/23 08:27
Lab Results
08/31/23 04:45
08/31/23 04:45
Troponin I < 0.012 ng/ml 08/31/23 04:45
Shv-P-Uzkswmmxsaf Pept 1930 pg/ml 08/31/23 04:45
Physical Exam
General: No Apparent Distress and Other (conversational dyspnea, on supp O2, wet cough)
HEENT: Normocephalic, Anicteric and Moist Mucous Membranes
Respiratory: Wheezes
Cardiac: S1/S2, Regular Rhythm and Murmur
Breast: Other (L breast edema)
GI: Soft, Non Tender, Non Distended and Normal Bowel Sounds
Musculoskeletal: No Clubbing, No Cyanosis and Edema (2+ edema of B/L LE)
Skin: Warm and Dry
Neuro: AO x 3
Impression / Plan
-
Primary Senior Civil Engineer: Dr. Yon Soliz
Assessment:
Presentation with SOB, cough
Leukocytosis
Acute on chronic systolic congestive heart failure
Elevated LFTs, possible passive congestion
History of cardiomyopathy with partial recovery, EF 40 to 45% by echo in 2021
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
Paroxysmal atrial fibrillation
Chronic amiodarone therapy
Prior Xarelto use, stopped 06/2023 due to anemia/thrombocytopenia
Iron deficiency anemia
Hypertension
Hyperlipidemia
Diabetes
CKD
History of TIA/CVA
History of partial motor seizure disorder
History of retinal artery branch occlusion in 2014
History of rheumatic fever as a child
Peripheral polyneuropathy
History of uterine cancer in 1989 status post hysterectomy and bilateral salpingo-oophorectomy
History of rectal cancer status postchemotherapy with 5�FEU, leucovorin, oxaliplatin
Hypoalbuminemia
ECHO 07/2013: EF 20 to 25%, global hypokinesis, moderate MR, moderate TR, PAP 40 to 45 mmHg, small circumferential pericardial effusion
ECHO 09/2017: EF 40 to 45%, ICD wire in RV, moderately dilated bilateral atria, ICD wire in right atrial cavity, moderate MR, mild LA
ECHO 12/2019: EF 55%, mild concentric LVH, stage I diastolic dysfunction, MAC, moderate MR, aortic sclerosis, mild AR, mild TR, PAP 20 to 25 mmHg, trivial pericardial effusion
Echo 10/2021: EF 40 to 45%, mild concentric LVH, ICD wire seen in right ventricle, ICD/pacer wire in right atrial cavity, mild to moderate MR, mild , mild AR, mild TR, small pericardial effusion (unchanged compared to prior). in afib during study
Plan:
-Patient presents to [facility] due to worsening shortness of breath and cough.
-In acute systolic congestive heart failure. proBNP 1900. Chest x-ray with small left pleural effusion and pulmonary edema
-On Bumex 0.5 mg p.o. daily. Currently ordered IV Lasix 40 mg daily.
-CHF education
-wean supp O2 as able
-She has had history of cardiomyopathy with EF as low as 20 to 25% in the past. Most recently 40 to 45% by echo in 2021 while in afib. Will repeat this admission
-she complains of some L breast swelling and heaviness. appears edematous. would follow with diuresis.
-follow LFTs with diuresis, possibly passive congestion
-In AV paced rhythm on review of EKG and telemetry since admission. She is chronically on amiodarone therapy. Her outpatient anticoagulation (Xarelto) was stopped 06/2023 due to anemia and thrombocytopenia with subsequent improvement.
-Will interrogate device
-She is followed by [place] [facility] for iron deficiency anemia. Received iron infusion in July 2023. Hemoglobin 11.5
-Continue outpatient Coreg
-GDMT of SCHF has been limited as creatinine has previously been as high as 2.1 in the past. Creatinine presently stable at 1.0. Follow with diuresis. Could consider trial of low-dose WALKER/ARB. Could also consider for SGLT2 inhibitor, however
nephrology with significant concerns for UTI in patient.
-Check TSH
-d/w nursing. d/w patient and son at bedside
Data Reviewed
-
EKG: Tracing Personally Visualized and interpreted
Radiology: Report Reviewed by me
Medical Tests (Nuc Med, Echo etc): Report Reviewed by me
Labs: Labs Reviewed by me
Old Records: Reviewed
[2023-08-31 10:34] LABS: Glucose - Point of Care 239 mg/dl (70-99)
[2023-08-31] MEDS: NOVOLOG FLEXPEN-LOW RESISTANCE 2 UNITS SC ×2 (11:28→13:53)
[2023-08-31] MEDS: SIMBRINZA 1%-0.2% OPHTH SUSP 1 DROP BOTH EYES ×2 (11:29→20:14)
--- NOTE | 2023-08-31 12:02 | W.CARD.DEVCH ---
Cardiac Device Check
-
Device: Implanted Cardioverter-Defibrillator
Rigging Engineer: Medtronic
The patient's device was interrogated with assistance of the device sales representative raw fibers. The device had normal function. No PAF noted. Patient with significantly elevated optivol level. 9.3 years battery remaining
--- NOTE | 2023-08-31 12:24 | CON.PUL ---
Consultation
Consultation Request
Date/Time Consultation Requested: 08/31/23
Date/Time Consultation Performed: 08/02/23
Performing Provider: Yared
Reason for Consultation: SOB
Medical History
-
History of Present Illness:
Patient is a 88-year-old female with history of CHF, s/p ICD, paroxysmal atrial fibrillation, hypertension, diabetes, presenting to ER for SOB and cough. Reportedly COVID tested negative at home. On arrival, satting 93% and placed on O2. CXR
demonstrating congestion with L sided pleural effusion, she is admitted for acute CHF exacerbation.
She denies any prior known history of lung disease in the past. Lifelong nonsmoker. Denies family history of lung disease.
She was last seen in our office in [address] Bradshaw for SOB. Prior PFT in past (last obtained 2021) showing normal findings.
.
Past Medical History
Past Medical History: Other (see list below)
Social History
Tobacco: Non-smoker
Alcohol: None
Drug: None
Family History
Family History: Reviewed & Not Pertinent
Allergies / Home Medications
Allergies
Allergy/AdvReac Type Severity Reaction Status Date / Time
amoxicillin Allergy Unknown Verified 08/31/23 04:16
erythromycin base Allergy avoids Verified 08/31/23 04:16
[Erythromycin Base] patient
taking
vytorin
Penicillins Allergy Swelling Verified 08/31/23 04:16
venom-honey bee Allergy Anaphylaxis Verified 08/31/23 04:16
[bee venom (honey bee)]
Beta-Blockers AdvReac coughing Verified 08/31/23 04:16
(Beta-Adrenergic Bloc
insect bites Allergy Swelling Uncoded 08/31/23 04:16
Home Medications
�Medication �Instructions �Recorded �Confirmed �Last Taken �Type
amiodarone 200 mg tablet (Pacerone) 200 mg PO DAILY Arrhythmia 11/04/20 08/31/23 08/30/23 History
atorvastatin 40 mg tablet 40 mg PO QPM High cholesterol 11/04/20 08/31/23 08/30/23 History
bimatoprost 0.01 % eye drops 1 drp BOTH EYES QPM Eye condition 11/04/20 08/31/23 08/30/23 History
(Lumigan)
brinzolamide 1 %-brimonidine 0.2 % 1 drp BOTH EYES BID Eye condition 11/04/20 08/31/23 08/30/23 History
eye drops,suspension (Simbrinza)
magnesium oxide 400 mg PO HS Supplement 11/04/20 08/31/23 08/30/23 History
bumetanide 0.5 mg tablet 0.5 mg PO QPM Fluid 12/04/22 08/31/23 08/30/23 History
Retention/Swelling
levetiracetam 500 mg tablet 500 mg PO BID Seizures 12/04/22 08/31/23 08/30/23 History
(Keppra)
multivitamin 1 tab PO DAILY Supplement 12/04/22 08/31/23 08/30/23 History
ascorbic acid (vitamin C) 500 mg 500 mg PO MOWEFR Supplement 02/18/23 08/31/23 08/30/23 History
tablet
carvedilol 25 mg tablet 25 mg PO BID Blood Pressure 02/18/23 08/31/23 08/30/23 History
cholecalciferol (vitamin D3) 25 25 mcg PO DAILY Supplement 02/18/23 08/31/23 08/30/23 History
mcg (1,000 unit) tablet (Vitamin
D3)
levothyroxine 50 mcg tablet 50 mcg PO DAILY Thyroid 06/27/23 08/31/23 08/30/23 History
(Synthroid)
Review of Systems
-
History Source: Patient
All other systems: Negative unless noted
Vitals / Labs / Diagnostic Testing
Vital Signs
Temp Pulse Resp BP Pulse Ox
94.5 F L 62 20 154/71 99
08/31/23 12:17 08/31/23 11:30 08/31/23 11:30 08/31/23 08:35 08/31/23 11:30
Lab Data
08/31/23 04:45
08/31/23 04:45
Laboratory Results
08/31/23 08/31/23
04:45 06:05
PT 14.8 H
INR 1.15
APTT 31.3
pH 7.30 L
pCO2 64 H
pO2 114 H
HCO3 31.5 H
O2 Delivery Level 60% on arrival
Diagnostic Testing:
Physical Exam
-
HEENT: Normocephalic, Anicteric and Moist Mucous Membranes
Cardiovascular: S1/S2, Regular Rhythm and Peripheral Edema (2+)
Respiratory: Wheeze (slight R), Rales and Non-Labored Respirations
GI: Soft, Non Distended and Non Tender
Neurology: Awake, Alert, Oriented, AO x 3 and No Motor Deficits
Skin: Warm, Dry and Good Color
General: Comfortable and Other (NAD)
Assessment
-
Patient is a 88-year-old female with history of CHF, s/p ICD, paroxysmal atrial fibrillation, hypertension, diabetes, presenting to ER for SOB and cough. Reportedly COVID tested negative at home. On arrival, satting 93% and placed on O2. CXR
demonstrating congestion with L sided pleural effusion, she is admitted for acute CHF exacerbation.
She denies any prior known history of lung disease in the past. Lifelong nonsmoker. Denies family history of lung disease.
She was last seen in our office in [address] Bradshaw for SOB. Prior PFT in past (last obtained 2021) showing normal findings.
AE CHF
Congestion/L pleural effusion
SOB
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
CHF with ICD placement
Type 2 diabetes, suboptimal controlled.
CKD3
Abdominal aortic aneurysm.
Hemolytic anemia.
Hyponatremia.
Essential hypertension.
Paroxysmal AF
Rectal cancer resection.
Ostomy creation.
ICD placement.
Hysterectomy with Oophorectomy.
Cataract extraction.
Tonsillectomy.
Appendectomy.
Plan
Continue supplemental O2 and wean as tolerated
POx 94% on arrival, does not use O2 at home
No known history of lung disease is noted -- she was last seen in our office in 2021
PFTs obtained then were normal
She is set for yearly PFTs due to history of amio use
Home O2 eval eventually
Never smoker
Never diagnosed with asthma or COPD, denies family history of lung disease.
Not on inhalers at home
Can add as needed neb treatments
Suspect patient has underlying AE HFrEF given history/imaging
ProBNP elevated
CXR obtained indicating pulmonary edema, L sided pleural effusion/ LE swelling noted
Cards eval obtained
Diuresis per team
Small effusion noted, does not seem amenable for sampling
Can US if enlarging to evaluate
ECHO results reviewed--reduced function 40-45%
Repeat study pending
I see no indication for IV steroids, currently not wheezing significantly
Can evaluate on an as needed basis
PFTs can be obtained when improved
Will need outpatient pulmonary evaluation in our office
Overdue on yearly PFTs
We will follow
Diagnostic Data
CXR 08/31/23- 1. Mild pulmonary vascular congestion.
2. Small left pleural effusion is suspected. Consider PA and lateral views when possible.
3. Unchanged linear opacity within the right midlung zone, consistent with subsegmental atelectasis or scarring.
ECHO 10/03/21- Moderately reduced systolic function. No regional wall motion abnormalities are seen. LV ejection fraction is 40-45% by visual estimation. Mild concentric left ventricular hypertrophy. Diastolic function indeterminate (AF). Indexed LA
volume is severely abnormal (> 48 mL/m2). ICD wire seen in right ventricle. ICD/pacemaker wire present in the right atrial cavity. Mild to moderate mitral regurgitation. Mild aortic stenosis.
Mild aortic regurgitation. Mild tricuspid regurgitation. Small pericardial effusion. Compared to prior echocardiogram from December 10, 2019, LV function was previously estimated at normal, 55%. Previously, there is aortic sclerosis without stenosis
and now there is mild aortic stenosis. She was in sinus rhythm at that time although now in atrial fibrillation. Small pericardial effusion is unchanged.
PFT 10/04/21: FEV1 1.83L, 102%; FVC 2.35L 97% ratio 78. TLC 4.25L 86%, DLCO 74%
--- NOTE | 2023-08-31 12:47 | W.PN.UPDATE ---
Update Note
Progress Note Update
Seen and examined. Overnight physician
Currently states of sore throat. On 4 L of oxygen. Hypothermic. States shortness of breath and lower extremity edema.
General no acute distress, able to speak in complete sentences, not tachypneic
Cardiac S1-S2
Bilateral diffuse expiratory wheezing
Abdomen positive also soft nontender nondistended
Extremities +2 pitting edema bilaterally
Acute hypoxic respiratory insufficiency likely multifactorial
See each problem below
Acute on chronic systolic heart failure exacerbation
History of cardiomyopathy status post ICD placement
Wean oxygen started
Diuretics per cardiology
ICD was interrogated
Strict I's and O's
Daily weights
Monitor creatinine closely.
May benefit from Entresto if blood pressure/creatinine can handle it
Consider SGLT2 inhibitor
Acute bronchitis likely viral
Continue with IV steroids and bronchodilators
Pro-Jaylen negative. Antibiotic discontinued.
Chronic transaminitis likely secondary to vascular congestion secondary to heart failure
Continue to trend
Paroxysmal atrial fibrillation
Continue with carvedilol and amiodarone
Taken off anticoagulation due to severe anemia and GI bleed
History of iron deficiency anemia
Trend hemoglobin. Transfuse for hemoglobin less than 7.
CKD stage III
Trend creatinine with diuretics
Primary hypertension
Continue home meds
History of seizures
Continue Keppra 500 mg twice daily
Hypothyroidism
Continue Synthroid.
DVT ppx-hep sc
d/d with family member at bedside
[2023-08-31 13:08] LABS: Glucose - Point of Care 232 mg/dl (70-99)
[2023-08-31 13:34] LABS: Glucose - Point of Care 239 mg/dl (70-99)
[2023-08-31 14:19] LABS: Free T4 2.72 ng/dl (0.78-2.19)
--- NOTE | 2023-08-31 15:22 | WOUNDNOTE ---
[employer] RN NOTE: Patient admitted with 12 year old ostomy and no ostomy supplies. Stoma is pink and slightly prolapsed. Patient reports the prolapse is not new. RN appropriately applied new [place] barrier and pouch. Pouch intact and no drainage
noted. Per RN , peristomal skin intact. Brother stated he will bring in ostomy supplies from home. Patient has pouch #[id number] and barrier #[id number] at bedside if needed in the meantime. No-sting barrier and adhesive foam applied to heels. Per RN
Rashida, patient has stage 1 on sacrum that is covered with silicone border foam. Will follow up as needed.
[2023-08-31] MEDS: DECADRON 4 MG IV ×2 (15:42→23:01)
--- NOTE | 2023-08-31 16:16 | PTCARENOTE ---
Patient hypothermic 94.5 oral temp. Warming blanket ordered to maintain temperature 97.0. Patient weaned down to 2L o2 via n/c, sp02 95%-98%. Patient has frequent moist nonproductive cough. Wheezing throughout lung paredes. Patient resting
comfortably in bed with call schaefer in reach. Patient's son Kal in room at bedside. Nursing update provided.
[2023-08-31 17:16] LABS: Glucose - Point of Care 328 mg/dl (70-99)
[2023-08-31] MEDS: LIPITOR 40 MG PO (17:26)
[2023-08-31] MEDS: NOVOLOG FLEXPEN-MODERATE RESISTANCE 7 UNITS SC (17:26)
[2023-08-31 19:29] LABS: Urine Albumin Negative (Neg - Trace); Urine Bilirubin Negative (Negative); Urine Character Clear (Clear); Urine Color Yellow; Urine Glucose 3+ (Negative); Urine Ketone Negative (Negative); Urine Leukocyte 2+ (Negative); Urine Nitrite Negative (Negative); Urine Occult Blood Negative (Negative); Urine Specific Gravity 1.015 (<1.030); Urine Urobilinogen Negative (Neg - 1+)
[2023-08-31 19:52] LABS: Urine Bacteria Many (Negative); Urine Granular Cast 0-2 /LPF (0); Urine Red Blood Cell None Seen /HPF (0-2); Urine Squamous Cell >30 /LPF (Few)
[2023-08-31] MEDS: LUMIGAN 0.01% 1 DROP BOTH EYES (20:17)
[2023-08-31 22:23] LABS: Glucose - Point of Care 312 mg/dl (70-99)
[2023-08-31] MEDS: NOVOLOG FLEXPEN 7 UNITS SC (23:02)
--- NOTE | 2023-08-31 23:54 | PTCARENOTE ---
Patient is attempting to get out of bed. Calling out 'Jennifer what is the time' Re-oriented to place time and situation. Pt appears very anxious. Order for melatonin received. Bed alarm set. Call schaefer remains within reach.
[2023-08-31] MEDS: MELATONIN 5 MG PO (23:57)
[2023-09-01] VITALS (12 sets, daily range): BP systolic 97–141; BP diastolic 43–66; BMI 28.7
[2023-09-01 04:01] LABS: Hematocrit 32.3 % (37.0-47.0); Hemoglobin 10.2 g/dL (12.0-16.0); Mean Corp Hgb Conc. 31.6 g/dL (33.0-37.0); Mean Corpuscular Hgb 27.8 pg (27.0-31.0); Mean Platelet Volume 9.8 fL (7.4-10.4); Platelet Count 202 10^3/uL (130-400); Red Blood Cell Count 3.67 10^6/uL (4.20-5.40); Red Cell Dist. Width 17.8 % (11.5-14.5); White Blood Cell Count 12.5 10^3/uL (4.8-10.8)
[2023-09-01 04:30] LABS: ALT (SGPT) 59 U/L (0-35); AST (SGOT) 38 U/L (14-36); Albumin 2.9 g/dl (3.5-5.0); Alkaline Phosphatase 127 U/L (38-126); Blood Urea Nitrogen 46 mg/dl (7-17); Carbon Dioxide 28 mmol/L (22-30); Chloride 107 mmol/L (98-107); Estimated Creatinine Clearance 31 ml/min; Glucose 216 mg/dl (70-99); Potassium 4.1 mmol/L (3.5-5.1); Sodium 138 mmol/L (135-145); Total Bilirubin 0.5 mg/dl (0.2-1.3); Total Protein 4.9 g/dl (6.3-8.2); eGFR 40.05
[2023-09-01] MEDS: DECADRON 4 MG IV (06:21)
[2023-09-01] MEDS: DUONEB 3 ML INH ×2 (07:23→21:11)
[2023-09-01 08:12] LABS: Glucose - Point of Care 223 mg/dl (70-99)
[2023-09-01] MEDS: HEPARIN 5000 UNITS SC ×2 (08:23→21:02)
[2023-09-01] MEDS: NOVOLOG FLEXPEN-MODERATE RESISTANCE 3 UNITS SC (08:38)
[2023-09-01] MEDS: LASIX 40 MG IV (08:40)
[2023-09-01] MEDS: KEPPRA 500 MG PO ×2 (08:42→21:02)
[2023-09-01] MEDS: COREG 25 MG PO ×2 (08:43→21:03)
[2023-09-01] MEDS: PACERONE 200 MG PO (08:44)
[2023-09-01] MEDS: SYNTHROID 50 MCG PO (08:44)
[2023-09-01] MEDS: SIMBRINZA 1%-0.2% OPHTH SUSP 1 DROP BOTH EYES ×2 (08:48→21:03)
--- NOTE | 2023-09-01 10:01 | W.PN.CARDCBS ---
Today's Communication / Plan
-
Cont to diurese with IV Lasix 40mg daily
Creat 1.3. Cont to follow
Consider WALKER/ARB if Creat stable.
CHF education'
Wean Oxygen
Cont Amio. Not anticoagulated because of balance/anemia
Add ASA 81mg daily
Impression / Plan
-
Primary Spooler Operator: Dr. Yon Soliz
Assessment:
Presentation with SOB, cough
Leukocytosis
Acute on chronic systolic congestive heart failure
Elevated LFTs, possible passive congestion
History of cardiomyopathy with partial recovery, EF 40 to 45% by echo in 2021
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
Paroxysmal atrial fibrillation
Chronic amiodarone therapy
Prior Xarelto use, stopped 06/2023 due to anemia/thrombocytopenia
Iron deficiency anemia
Hypertension
Hyperlipidemia
Diabetes
CKD
History of TIA/CVA
History of partial motor seizure disorder
History of retinal artery branch occlusion in 2014
History of rheumatic fever as a child
Peripheral polyneuropathy
History of uterine cancer in 1989 status post hysterectomy and bilateral salpingo-oophorectomy
History of rectal cancer status postchemotherapy with 5�FEU, leucovorin, oxaliplatin
Hypoalbuminemia
ECHO 07/2013: EF 20 to 25%, global hypokinesis, moderate MR, moderate TR, PAP 40 to 45 mmHg, small circumferential pericardial effusion
ECHO 09/2017: EF 40 to 45%, ICD wire in RV, moderately dilated bilateral atria, ICD wire in right atrial cavity, moderate MR, mild IL
ECHO 12/2019: EF 55%, mild concentric LVH, stage I diastolic dysfunction, MAC, moderate MR, aortic sclerosis, mild AR, mild TR, PAP 20 to 25 mmHg, trivial pericardial effusion
Echo 10/2021: EF 40 to 45%, mild concentric LVH, ICD wire seen in right ventricle, ICD/pacer wire in right atrial cavity, mild to moderate MR, mild , mild AR, mild TR, small pericardial effusion (unchanged compared to prior). in afib during study
Echo 08/31/23: EF 50-55%, mild LVH, mild-mod MR, mild-mod TR. PA 50-55mmHg.
Plan:
-Cont IV lasix. Creat 1.3.
-CHF education
-wean supp O2 as able
-She has had history of cardiomyopathy with EF as low as 20 to 25% in the past. Most recently 40 to 45% by echo in 2021 while in afib. Will repeat this admission
-follow LFTs with diuresis, possibly passive congestion
-In AV paced rhythm on review of EKG and telemetry since admission. She is chronically on amiodarone therapy. Her outpatient anticoagulation (Xarelto) was stopped 06/2023 due to anemia and thrombocytopenia with subsequent improvement.
-She is followed by [place] [facility] for iron deficiency anemia. Received iron infusion in July 2023. Hemoglobin 11.5
-Continue outpatient Coreg
-GDMT of SCHF has been limited as creatinine has previously been as high as 2.1 in the past. Follow with diuresis. Could consider trial of low-dose WALKER/ARB. Could also consider for SGLT2 inhibitor, however nephrology with significant concerns for
UTI in patient.
-TSH: 5.3
-d/w nursing. d/w patient and son at bedside
Progress Note - Spooler Operator
Subjective
Date of Service: September 01, 2023
doing a little better. No chest pains. Breathing improved.
Objective
Labs:
09/01/23 03:53
09/01/23 03:53
Labs
Hgb 10.2 g/dL (12.0-16.0) L 09/01/23 03:53
Hct 32.3 % (37.0-47.0) L 09/01/23 03:53
Plt Count 202 10^3/uL (130-400) 09/01/23 03:53
PT 14.8 Sec (11.4-14.6) H 08/31/23 04:45
INR 1.15 08/31/23 04:45
APTT 31.3 Sec (23.4-35.0) 08/31/23 04:45
Sodium 138 mmol/L (135-145) 09/01/23 03:53
Potassium 4.1 mmol/L (3.5-5.1) 09/01/23 03:53
BUN 46 mg/dl (7-17) H 09/01/23 03:53
Creatinine 1.3 mg/dL (0.6-1.0) H 09/01/23 03:53
Glucose 216 mg/dl (70-99) H 09/01/23 03:53
Troponins
08/31/23
04:45
Troponin I < 0.012
Vital Signs and I&O:
Vital Signs
Temp Pulse Resp BP Pulse Ox
97.7 F 61 25 124/52 91
09/01/23 07:35 09/01/23 08:43 09/01/23 08:00 09/01/23 08:43 09/01/23 09:25
Vital Signs
Temp Pulse Resp BP Pulse Ox
97.7 F 61 25 124/52 91
09/01/23 07:35 09/01/23 08:43 09/01/23 08:00 09/01/23 08:43 09/01/23 09:25
Intake & Output
08/30/23 08/31/23 09/01/23 09/02/23
06:59 06:59 06:59 06:59
Intake Total 575 / 575
Output Total 1050 / 1050
Balance -475 / -475
Physical Exam
Physical Exam
GEN: No distress, awake, Ox3
HEENT: supple, anicteric, mmm
LUNGS: scatt rhonchi
CV: Reg, S1/S2, 1/6 syst LSB, S4+
ABD: soft, BS+, NT/ND
EXT: +1 edema
NEURO: Gross non-focal
SKIN: No rash
--- NOTE | 2023-09-01 10:55 | W.PN.HOSP.TC ---
Today's Communication/Plan
-
adjust steroids
wean o2
IV lasix
trend cr
Assessment / Plan
Assessment / Plan
Acute hypoxic respiratory insufficiency likely multifactorial
See each problem below
Acute on chronic systolic heart failure exacerbation
History of cardiomyopathy status post ICD placement
Wean oxygen started
Diuretics per cardiology-lasix 40mg daily.
ICD was interrogated
Strict I's and O's
Daily weights
Monitor creatinine closely.
May benefit from Entresto if blood pressure/creatinine can handle it
Consider SGLT2 inhibitor
Acute bronchitis likely viral
Continue with IV steroids for 24h and bronchodilators prn
Pro-Jaylen negative. Antibiotic discontinued.
Chronic transaminitis likely secondary to vascular congestion secondary to heart failure
Continue to trend
Paroxysmal atrial fibrillation
Continue with carvedilol and amiodarone
Taken off anticoagulation due to severe anemia and GI bleed
History of iron deficiency anemia
Trend hemoglobin. Transfuse for hemoglobin less than 7.
CKD stage III
Trend creatinine with diuretics
Primary hypertension
Continue home meds
History of seizures
Continue Keppra 500 mg twice daily
Hypothyroidism
Continue Synthroid.
DVT ppx-hep sc
tx to tele
Anticipated Discharge: > 48 hours
Subjective/Interval History
-
Date of Service: September 01, 2023
states breathing has improved
remains on oxygen
Objective Data
-
Labs:
Laboratory Results
09/01/23
03:53
WBC 12.5 H
Hgb 10.2 L
Hct 32.3 L
Plt Count 202
Sodium 138
Potassium 4.1
Chloride 107
Carbon Dioxide 28
BUN 46 H
Creatinine 1.3 H
Glucose 216 H
Calcium 9.0
Total Bilirubin 0.5
AST 38 H
ALT 59 H
Alkaline Phosphatase 127 H
Vital Signs:
Vital Signs
Temp Pulse Resp BP Pulse Ox
97.7 F 61 25 124/52 91
09/01/23 07:35 09/01/23 08:43 09/01/23 08:00 09/01/23 08:43 09/01/23 09:25
I&O
08/31/23 09/01/23 09/02/23
06:59 06:59 06:59
Intake Total 575 / 575
Output Total 1050 / 1050
Balance -475 / -475
Physical Exam
-
General: Well Developed and No Apparent Distress
HEENT: Normocephalic, Atraumatic, Moist Mucous Membranes and Oxygen
Respiratory: Rhonchi
Cardiac: Regular Rhythm and S1/S2; Negative Murmur, Rub or Gallop
GI: Soft, Nontender, Nondistended and Normal Bowel Sounds; Negative Organomegaly
Rectal: Deferred by Provider
Musculoskeletal: No Clubbing, No Cyanosis and No Edema
Skin: Negative Rash
Neuro: Awake, No Motor Deficits and Nonfocal/Grossly Intact
Psych: Calm
[2023-09-01] MEDS: NOVOLOG FLEXPEN-MODERATE RESISTANCE 9 UNITS SC (11:55)
[2023-09-01] MEDS: LOW STRENGTH ASPIRIN 81 MG PO (11:55)
[2023-09-01 12:04] LABS: Glucose - Point of Care 355 mg/dl (70-99)
[2023-09-01 12:49] LABS: Glycohemoglobin (HgbA1c) 6.3 % (4.0-5.6)
--- NOTE | 2023-09-01 13:41 | W.PN.PUL3 ---
Today's Communication / Plan
-
Continue to wean down oxygen as tolerated with walking pulse oximetry prior to discharge
Maintain SpO2 >90-94%
Start mucolytics with Mucinex and flutter valve; may need vest therapy versus other form of CPT
Start scheduled nebulized bronchodilators
PT/OT
Encourage incentive spirometer
Urine cultures positive for GNR � defer antibiotics to primary team
Assessment
-
Patient is a 88-year-old female with history of CHF, s/p ICD, paroxysmal atrial fibrillation, hypertension, diabetes, presenting to ER for SOB and cough. Reportedly COVID tested negative at home. On arrival, satting 93% and placed on O2. CXR
demonstrating congestion with L sided pleural effusion, she is admitted for acute CHF exacerbation.
She denies any prior known history of lung disease in the past. Lifelong nonsmoker. Denies family history of lung disease.
She was last seen in our office in [address] Bradshaw for SOB. Prior PFT in past (last obtained 2021) showing normal findings.
AE CHF
Congestion/L pleural effusion
SOB
Positive urinalysis with GNR
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
CHF with ICD placement
Type 2 diabetes, suboptimal controlled.
CKD3
Abdominal aortic aneurysm.
Hemolytic anemia.
Hyponatremia.
Essential hypertension.
Paroxysmal AF
Rectal cancer resection.
Ostomy creation.
ICD placement.
Hysterectomy with Oophorectomy.
Cataract extraction.
Tonsillectomy.
Appendectomy.
Plan
Continue supplemental O2 and wean as tolerated
POx 94% on arrival, does not use O2 at home
No known history of lung disease is noted -- she was last seen in our office in 2021
PFTs obtained then were normal
She is set for yearly PFTs due to history of amio use
Home O2 eval eventually
Never smoker
Never diagnosed with asthma or COPD, denies family history of lung disease.
Not on inhalers at home
Will start scheduled nebulized bronchodilators
Start flutter valve to help expectorate cough and mobilize patient's
Start Mucinex 1200 mg PO every 12
If still having difficulty more blood secretions then we will start chest PT with vest therapy
Suspect patient has underlying AE HFrEF given history/imaging
ProBNP elevated
CXR obtained indicating pulmonary edema, L sided pleural effusion/ LE swelling noted
Cards eval obtained
Diuresis per team
Small effusion noted, does not seem amenable for sampling
Can US if enlarging to evaluate
ECHO results reviewed--reduced function 40-45%
Repeat study pending
I see no indication for IV steroids, currently not wheezing significantly
Can evaluate on an as needed basis
PFTs can be obtained when improved
Patient has a positive urinalysis with culture showing GNR. Defer antibiotics to primary team.
Will need outpatient pulmonary evaluation in our office
Overdue on yearly PFTs
We will follow
Total time spent today was 35 minutes for this encounter. Time includes reviewing laboratory test/imaging results, reviewing pertinent medical records, obtaining and reviewing medical history, performing an appropriate exam, ordering medications,
tests and procedures. Time also includes documentation of this encounter, coordinating patient care and communicating with other healthcare professionals. Total time does not include separately billed tests performed on this date of service.
Diagnostic Data
CXR 08/31/23- 1. Mild pulmonary vascular congestion.
2. Small left pleural effusion is suspected. Consider PA and lateral views when possible.
3. Unchanged linear opacity within the right midlung zone, consistent with subsegmental atelectasis or scarring.
ECHO 10/03/21- Moderately reduced systolic function. No regional wall motion abnormalities are seen. LV ejection fraction is 40-45% by visual estimation. Mild concentric left ventricular hypertrophy. Diastolic function indeterminate (AF). Indexed LA
volume is severely abnormal (> 48 mL/m2). ICD wire seen in right ventricle. ICD/pacemaker wire present in the right atrial cavity. Mild to moderate mitral regurgitation. Mild aortic stenosis.
Mild aortic regurgitation. Mild tricuspid regurgitation. Small pericardial effusion. Compared to prior echocardiogram from December 10, 2019, LV function was previously estimated at normal, 55%. Previously, there is aortic sclerosis without stenosis
and now there is mild aortic stenosis. She was in sinus rhythm at that time although now in atrial fibrillation. Small pericardial effusion is unchanged.
PFT 10/04/21: FEV1 1.83L, 102%; FVC 2.35L 97% ratio 78. TLC 4.25L 86%, DLCO 74%
Subjective Data
-
Date of Service:
Date of Service: September 01, 2023
Chief Complaint: Pulmonary Follow Up
Subjective:
Patient seen at bedside along with patient's son. She feels better. Still has a wet sounding cough with poor expectoration. She is on 1 L/min nasal cannula. Denies chest pain, headache, fevers or chills.
Review of Systems
General: Other (Negative unless mentioned above)
Objective Data
Data Reviewed
Vital Signs / I&O / Oxygen:
Vital Signs
Temp Pulse Resp BP Pulse Ox
97.6 F 60 24 109/54 94
09/01/23 11:44 09/01/23 12:00 09/01/23 12:00 09/01/23 12:00 09/01/23 12:00
Intake and Output
08/31/23 09/01/23 09/02/23
06:59 06:59 06:59
Intake Total 575 / 575
Output Total 1050 / 1050
Balance -475 / -475
SaO2 94
Nasal Cannula flow liters per 3
minute
Physical Exam
General: Comfortable
HEENT: Normocephalic and Anicteric
Cardiovascular: S1-S2 and Peripheral Edema (Trace lower extremity edema)
Respiratory: Wheeze (Bilaterally), Crackles (Bilaterally) and Rhonchi (Negative)
GI: Soft, Non Distended and Non Tender
Neurology: Awake and Alert
Skin: Warm and Dry
Labs/Micro/Reports
Lab Data
09/01/23 03:53
09/01/23 03:53
Microbiology
08/31/23 19:23 Urine Urine Culture - Preliminary
Gram negative bacilli
--- NOTE | 2023-09-01 17:04 | PTCARENOTE ---
Report to [facility] on , Pt tx in [place] on 1 l O2 on tele monitor with son following
[2023-09-01 17:25] LABS: Glucose - Point of Care 252 mg/dl (70-99)
--- NOTE | 2023-09-01 17:28 | PTCARENOTE ---
Pt transferred to [facility] from [facility]. Vss. family member at bedside. pt oriented to room.
[2023-09-01] MEDS: LIPITOR 40 MG PO (17:30)
[2023-09-01] MEDS: NOVOLOG FLEXPEN-MODERATE RESISTANCE 5 UNITS SC (17:30)
[2023-09-01] MEDS: LUMIGAN 0.01% 1 DROP BOTH EYES (17:30)
[2023-09-01] MEDS: MUCINEX 1200 MG PO (21:02)
[2023-09-02] VITALS (63 sets, daily range): BP systolic 95–134; BP diastolic 44–74
--- NOTE | 2023-09-02 04:12 | PTCARENOTE ---
Patient has temperature of 94.4 orally. Warm blankets applied. Christi dill ordered. Goal temperature of 97 F. Will continue to monitor.
[2023-09-02] MEDS: DUONEB 3 ML INH ×4 (04:13→20:09)
[2023-09-02 04:50] LABS: Glucose - Point of Care 294 mg/dl (70-99)
--- NOTE | 2023-09-02 04:58 | HPS.HSE ---
Addendum entered and electronically signed by Travis Concepcion MD 09/02/23 05:03:
WRONG patient enttry
PLZ ignore below H & P
Original Note:
Family Physician
-
Family Physician: Yolis Caicedo
Chief Complaint
-
SoB and GI symtoms
History of Present Illness
75M HX HFpEF, HLD, CAD status post stent, Prx AF on Eliquis seen at ER for evalaution SoB and GI symtoms.
GI:
Report vague abdominal discomfort associated with nausea, nonbloody vomiting, multiple bouts of nonbloody diarrhea.
The symptoms improved on Sunday and since that time he has noticed increased gas and distention of his abdomen but no longer having nausea or vomiting . Report normal bowel movements yesterday.
Cardic:
Since Sunday, noted progressive shortness of breath
Chronic right lower extremity swelling after knee replacement but no acute change.
ROS:
Occasional heartburn.
No coughing.
No fevers or chills.
Medical History
Past Medical History
Past Medical History: Reports Other
Additional Past Medical History:
(CAD, CHF, HTN, Hypercholesterolemia, MS)
Past Surgical History: Reports Other
Social History
Tobacco: Non-smoker
Alcohol: None
Drug: None
Personal:
Living: With Family
Family History
Family History: Not pertinent
Allergies / Home Medications
Allergies reflects when Allergies were last updated in [facility].
Home Medications with original date entered in [facility]
Allergy/Medication List:
Allergies
Allergy/AdvReac Type Severity Reaction Status Date / Time
amoxicillin Allergy Unknown Verified 08/31/23 04:16
erythromycin base Allergy avoids Verified 08/31/23 04:16
[Erythromycin Base] patient
taking
vytorin
Penicillins Allergy Swelling Verified 08/31/23 04:16
venom-honey bee Allergy Anaphylaxis Verified 08/31/23 04:16
[bee venom (honey bee)]
Beta-Blockers AdvReac coughing Verified 08/31/23 04:16
(Beta-Adrenergic Bloc
insect bites Allergy Swelling Uncoded 08/31/23 04:16
Home Medications
amiodarone 200 mg tablet (Pacerone) 200 mg PO DAILY Arrhythmia 11/04/20
atorvastatin 40 mg tablet 40 mg PO QPM High cholesterol 11/04/20
bimatoprost 0.01 % eye drops (Lumigan) 1 drp BOTH EYES QPM Eye condition 11/04/20
brinzolamide 1 %-brimonidine 0.2 % eye drops,suspension (Simbrinza) 1 drp BOTH EYES BID Eye condition 11/04/20
magnesium oxide 400 mg PO HS Supplement 11/04/20
bumetanide 0.5 mg tablet 0.5 mg PO QPM Fluid Retention/Swelling 12/04/22
levetiracetam 500 mg tablet (Keppra) 500 mg PO BID Seizures 12/04/22
multivitamin 1 tab PO DAILY Supplement 12/04/22
ascorbic acid (vitamin C) 500 mg tablet 500 mg PO MOWEFR Supplement 02/18/23
carvedilol 25 mg tablet 25 mg PO BID Blood Pressure 02/18/23
cholecalciferol (vitamin D3) 25 mcg (1,000 unit) tablet (Vitamin D3) 25 mcg PO DAILY Supplement 02/18/23
levothyroxine 50 mcg tablet (Synthroid) 50 mcg PO DAILY Thyroid 06/27/23
Review of Systems
-
Constitutional: Reports No Symptoms
EENT: Reports No Symptoms
Respiratory: Reports See HPI
Cardiac: Reports No Symptoms
Abdomen/GI: Reports See HPI
: Reports No Symptoms
Musculoskeletal: Reports No Symptoms
Skin: Reports No Symptoms
Neurological: Reports No Symptoms
Endocrine: Reports No Symptoms
Hematologic/Lymphatic: Reports No Symptoms
Psych: Reports No Symptoms
Physical Exam
Vital Signs
Vital Signs
Temp Pulse Resp BP Pulse Ox
94.4 F L 61 22 132/64 90
09/02/23 04:02 09/02/23 03:15 09/02/23 03:15 09/02/23 03:15 09/02/23 03:15
Physical Exam
General: Other (see below )
Laboratory Results
-
09/01/23 03:53
Laboratory Results
PT 14.8 Sec (11.4-14.6) H 08/31/23 04:45
INR 1.15 08/31/23 04:45
APTT 31.3 Sec (23.4-35.0) 08/31/23 04:45
pH 7.30 (7.35-7.45) L 08/31/23 06:05
pCO2 64 mmHg (32-35) H 08/31/23 06:05
pO2 114 mmHg (83-108) H 08/31/23 06:05
HCO3 31.5 mmol/L (21-28) H 08/31/23 06:05
Total Bilirubin 0.5 mg/dl (0.2-1.3) 09/01/23 03:53
AST 38 U/L (14-36) H 09/01/23 03:53
ALT 59 U/L (0-35) H 09/01/23 03:53
Alkaline Phosphatase 127 U/L (38-126) H 09/01/23 03:53
Troponin I < 0.012 ng/ml 08/31/23 04:45
Lipase 37 U/L (23-300) 08/31/23 04:45
Data Reviewed
-
Diagnostic Radiology: Image Personally Visualized and interpreted
Ultrasound: Report Reviewed by me
Lab Data: Labs Reviewed by me
Old Records: Reviewed
Impression/Plan
-
Reviewed VS: T 99.1 HR 80 BP 145/70 - 165/75 POx 93- 95 RA
Data
WCC 13.3
Hgb 10.9 - baseline 12s - 14s
Na 141
CO2 21
BUN 23
nl Cr
nl eGFR
TB 4.4
nl AST
n ALT
nl AKP
TPNI : 0.013
pro BNP 2240 - baseline 450
US abdomen:
Borderline gallbladder wall thickening
normal CBD diameter with no dilation.
Negative sonographic [place] sign.
CXR my view: likely acute CHF exacerbation.
07/25/21 TTE
LVEF 65
Mild LVH w moderate septl hypertrophy 1.7 cm
No significant LVOT gradient noted with Valsalva
Stage III diastolic dysfunction
Moderately dilated left atrium.
Normal right ventricular size and function.
Last hospitalist admission: 07/23/21- 07/26/21
1. Acute on chronic diastolic congestive heart failure.
2. Hypokalemia.
3. Atypical chest pain.
ASSESSMENT & PLAN
Dyspnea with elevated BNP
CXR suggestive of acute pul edema
Suspect acute on chr HF pEF
- IV Lasix 40 BID
- IOs and Wt daily
- ECHO
- DCA card consult
Borderline GB wall thickening, abnormal LFTs. possible cholecystitis as well.
- NPO
- Empiric ABx
- GS consult
Essential HTN
- c/w GRAFFITI CLEANER Norvasc, Hydralazine and labetalol
LMWH for DVT Px
Full code
IP TLM
--- NOTE | 2023-09-02 05:08 | W.PN.ANESINT ---
Anesthesia Intubation Note
- Intubation Note
Intubation Note:
Diagnosis: cardio-pulmonary arrest
Blade: mac 4
Tube Size: 8.0
Depth: 21cm
Side Taped: right
Drugs Used: none
Grade View: 1
EtCO2 Present: yes
Atraumatic: yes
Attempts: 1
Insertion Start and Stop Time: 4299-9380
SaO2 Pre: none
SaO2 Post: none
Glidescope Used: yes
Other Airway Adjustments:
Pre-Oxygenated: yes
Portable Chest X-Ray: p
RSI:
Suctioned:
Bilateral Breath Sounds Confirmed: yes
Vent Settings:
Settings per _x__Attending Physician
--- NOTE | 2023-09-02 05:14 | W.PN.UPDATE ---
Update Note
Progress Note Update
spoke with son and his when he returned my call and permission given to stop resuscitation efforts.
--- NOTE | 2023-09-02 05:32 | W.PN.UPDATE ---
Update Note
Progress Note Update
09/01 429
RN notified DATA ENTRY COORDINATOR, patient felt cold, Temp94.4, abena dill ordered, Temp of 97.1 noted afterwards.
Also stated patient with increase of oxygen use 5L throughout the night 92%, 20 RR Denied any chest pain, SOB lungs diminished with expiratory wheezing, advised DuoNeb treatment.
RT stated patient with crackles, there fore advised IV Lasix to be given now.
--- NOTE | 2023-09-02 06:00 | PTCARENOTE ---
Patient was desating on 3LNC. Oxygen increased to 5LNC. Patient's oxygen improved to 94%. Patient given breathing treatment by RT. Farmworker auscultated lungs and heard crackles b/l, as was confirmed by RT. Patient with occasional moist, nonproductive
cough. Asked REPLENISHMENT ASSOCIATE if travel writer could give 0800 dose IV lasix early, as this was agreed upon to do so. Farmworker walks into patient's room at 0446 and patient was very difficult to arouse and in respiratory distress. Rapid response was called. Code called at
0448 as patient became unresponsive. ROSC achieved at 0514. Patient transferred to ICU.
--- NOTE | 2023-09-02 06:18 | PTCARENOTE ---
Pt received in ICU following Code-9. Pt intubated and alert, following commands, nods y/n. Levophed gtt to maintain MAP >65. Family present at bedside.
[2023-09-02 06:31] LABS: Glucose - Point of Care 347 mg/dl (70-99)
--- NOTE | 2023-09-02 06:40 | W.PN.UPDATE ---
Update Note
Progress Note Update
0446: Rapid response called because patient was in respiratory distress. 0448: Patient became unresponsive and code called.� 0451 Arrive at code, patient was in PEA, presume due to hypoxia. Refer to code sheet for interventions. 5:14 ROSC
achieved. Patient has purposeful movements. Transfer to ICU. Family updated and made patient a Limited DNR (No CPR). She does have an ICD.
[2023-09-02 06:52] LABS: B.E. 3.6 mmol/L; HCO3 31.2 mmol/L (21-28); Ionized Calcium 1.31 mMOL/L (1.15-1.33); PCO2 62 mmHg (32-35); PO2 88 mmHg (83-108); Potassium 4.5 mMOL/L (3.5-5.1); Sodium 137 mMOL/L (136-145); pH 7.31 (7.35-7.45)
[2023-09-02 07:00] LABS: INR 1.23; Lactic Acid 3.1 mmol/L (0.7-2.0); PT 15.3 Sec (11.4-14.6)
--- NOTE | 2023-09-02 07:00 | PTCARENOTE ---
Vital signs prior to 09/02/23 0700 can no be verified by this nurse
[2023-09-02 07:01] LABS: APTT 28.3 Sec (23.4-35.0)
[2023-09-02 07:06] LABS: Blood Urea Nitrogen 55 mg/dl (7-17); Calcium 9.7 mg/dl (8.4-10.2); Carbon Dioxide 29 mmol/L (22-30); Chloride 98 mmol/L (98-107); Estimated Creatinine Clearance 29 ml/min; Glucose 492 mg/dl (70-99); Magnesium 2.1 mg/dl (1.6-2.3); Phosphorus 5.1 mg/dl (2.5-4.5); Potassium 4.5 mmol/L (3.5-5.1); Sodium 133 mmol/L (135-145); eGFR 36.64
[2023-09-02 07:10] LABS: Hematocrit 37.1 % (37.0-47.0); Hemoglobin 10.7 g/dL (12.0-16.0); Mean Corp Hgb Conc. 28.8 g/dL (33.0-37.0); Mean Corpuscular Hgb 27.2 pg (27.0-31.0); Mean Corpuscular Volume 94.4 fL (81.0-99.0); Mean Platelet Volume 10.6 fL (7.4-10.4); Platelet Count 185 10^3/uL (130-400); Red Blood Cell Count 3.93 10^6/uL (4.20-5.40)
[2023-09-02 07:21] LABS: Troponin I 0.166 ng/ml
--- NOTE | 2023-09-02 08:00 | PTCARENOTE ---
PT received intubated, awake, nods head appropriately, follows simple commands, family at bedside and updated, NSR on monitor, + pulses, trace edema, #8 ETT@ 24, lip, 18/350/5/100, O2 100%, B/L BS diminished, occasional REVENUE TAX SPECIALIST cough noted, abdomen soft
NT, +BS, Thermistor Ball, Pericare provided as per protocol, left abdominal Colostomy, appears prolapsed, pink in color Nascar Pit Crew Person aware, right #18 AC Fentanyl @ 25 mcg, right FA #20 Levophed (see work list for titrations)
[2023-09-02] MEDS: DECADRON 4 MG IV (08:04)
[2023-09-02] MEDS: HEPARIN 5000 UNITS SC ×2 (08:04→16:11)
[2023-09-02] MEDS: NOVOLOG FLEXPEN 12 UNITS SC (08:05)
[2023-09-02] MEDS: MUCINEX PO (08:05)
[2023-09-02] MEDS: SIMBRINZA 1%-0.2% OPHTH SUSP 1 DROP BOTH EYES ×2 (08:05→20:30)
--- NOTE | 2023-09-02 09:01 | W.PN.INTV ---
Today's Communication / Plan
Recommendations
Continue mechanical ventilation
Lightly sedate
Vent adjustments performed based on blood gas
Hopefully can perform SAT/SBT tomorrow morning and extubate
Continue nebulized bronchodilators
Maintain MAP greater than 65 and wean off vasopressors as tolerated
Hold diuresis for now given shock state
Control blood glucose with basal�bolus dosing, otherwise she will need insulin infusion
Trend lactate until <2 mmol/L
Renally dose all medications
Continue ICU level care
Assessment
-
Assessment: 88-year-old female with history of CHF, s/p ICD, paroxysmal atrial fibrillation, hypertension, diabetes, presenting to ER for SOB and cough. Reportedly COVID tested negative at home. On arrival, satting 93% and placed on O2. CXR
demonstrating congestion with L sided pleural effusion, she is admitted for acute CHF exacerbation. She denies any prior known history of lung disease in the past. Lifelong nonsmoker. Denies family history of lung disease. She was last seen in
our office in [address] Bradshaw for SOB. Prior PFT in past (last obtained 2021) showing normal findings. Patient was being managed on the hospitalist service on the floor and being diuresed. Unfortunately on the evening of 08/31
she developed worsening hypoxia and suffered a PEA cardiac arrest. ROSC obtained, and patient was transferred to the ICU for further care. [employer] consulted for additional management/recommendations; we were already following as a
pulmonary advisor consultant.
Impression:
#In-hospital cardiac arrest likely due to hypoxia
#Aspiration pneumonia/HAP
#Septic shock due to pneumonia as above
#Lactic acidosis due to above
#Elevated troponin likely due to demand ischemia with type II DE
#Acute kidney injury
#Hyperglycemia
#Acute HFpEF exacerbation
#L pleural effusion
#Positive urinalysis with GNR
Conditions present SIZER HAND
CHF with ICD placement
Type 2 diabetes, suboptimal controlled.
CKD3
Abdominal aortic aneurysm.
Hemolytic anemia.
Hyponatremia.
Essential hypertension.
Paroxysmal AF
Rectal cancer resection.
Ostomy creation.
ICD placement.
Hysterectomy with Oophorectomy.
Cataract extraction.
Tonsillectomy.
Appendectomy.
Plan
Patient is critically ill on mechanical ventilation and vasopressors albeit she is following commands and in NAD
Continue postcardiac arrest interventions including maintaining MAP >65, wean vasopressors as tolerated and continuing mechanical ventilation with daily SAT/SBT if clinically appropriate
Titrate FiO2 and PEEP to keep SpO2 >90-94%
Maintain plateau pressure <30; maintain driving pressure 15�20
Start broad-spectrum antibiotics with cefepime and IV vancomycin; check blood culture, sputum culture and urine antigens for Legionella and strep pneumonia
Continue nebulized bronchodilators with DuoNebs
Hold off on systemic steroids at this time given no known history of COPD or asthma and she is not currently wheezing
Lightly sedate with goal RASS -1 to -2 using fentanyl gtt + boluses so that we can prepare for SAT and hopefully extubate over the next 1-2 days
Maintain BG goal 140�180 � I will give a dose of NPH now and then also start Lantus tonight; continue ISS moderate resistance, and can raise or reduce depending on her BG trend
Trend lactate level until <2 mmol/L
Continue trending troponin level until begins to downtrend
Trend LFTs as well as serum creatinine
Start stress ulcer prophylaxis
DVT prophylaxis with HSQ - raise to q8hr
As per prior information via pulmonary consultation documentation:
No known history of lung disease is noted -- she was last seen in our office in 2021
PFTs obtained then were normal
She is set for yearly PFTs due to history of amio use
Home O2 eval eventually
Never smoker
Never diagnosed with asthma or COPD, denies family history of lung disease.
Not on inhalers at home
Suspect patient has underlying AE HFrEF given history/imaging
ProBNP elevated
CXR obtained indicating pulmonary edema, L sided pleural effusion/ LE swelling noted
Cards eval obtained
Diuresis per team --> would hold IV lasix now given she is hypotensive on levophed
Small effusion noted, does not seem amenable for sampling
Can US if enlarging to evaluate
ECHO results reviewed--reduced function 40-45%
Repeat TTE done on 08/31/2023 shows preserved LVEF at 50-55% with normal sized RV and mild�moderate TR with pulmonary tension.
I see no indication for IV steroids, currently not wheezing significantly
Can evaluate on an as needed basis
PFTs can be obtained when improved
Patient has a positive urinalysis with culture showing GNR. ABx now being started (see above)
Once patient is discharged assuming she continues to improve and is ultimately downgraded from the ICU, she will need outpatient pulmonary evaluation in our office
Overdue on yearly PFTs
Updates were given to the patient's family and all questions were answered. I discussed the case with the patient's [id number], Shelli.
Critical care statement: A total of 40 minutes of critical care time was provided for this patient today. This includes management of unstable vital signs, evaluation of the patient at bedside, reviewing the patient's pertinent medical records
including radiographs, microbiology, laboratory evaluations, and discussion with primary team, consultants, pharmacy, nutrition, physical therapy, case management, charge nurse, critical care nursing, and respiratory therapy.
Diagnostic Data
CXR 08/31/23- 1. Mild pulmonary vascular congestion.
2. Small left pleural effusion is suspected. Consider PA and lateral views when possible.
3. Unchanged linear opacity within the right midlung zone, consistent with subsegmental atelectasis or scarring.
CXR 09-02-2023:
Progressive right lung opacity, as described; congestive heart failure versus pneumonia.
Slight increased hazy retrocardiac opacity; likely small left pleural effusion, though cannot exclude associated atelectasis or pneumonia.
Endotracheal tube tip 4.5 cm above the angelica.
ECHO 10/03/21- Moderately reduced systolic function. No regional wall motion abnormalities are seen. LV ejection fraction is 40-45% by visual estimation. Mild concentric left ventricular hypertrophy. Diastolic function indeterminate (AF). Indexed LA
volume is severely abnormal (> 48 mL/m2). ICD wire seen in right ventricle. ICD/pacemaker wire present in the right atrial cavity. Mild to moderate mitral regurgitation. Mild aortic stenosis.
Mild aortic regurgitation. Mild tricuspid regurgitation. Small pericardial effusion. Compared to prior echocardiogram from December 10, 2019, LV function was previously estimated at normal, 55%. Previously, there is aortic sclerosis without stenosis
and now there is mild aortic stenosis. She was in sinus rhythm at that time although now in atrial fibrillation. Small pericardial effusion is unchanged.
PFT 10/04/21: FEV1 1.83L, 102%; FVC 2.35L 97% ratio 78. TLC 4.25L 86%, DLCO 74%
Subjective Dataa
Subjective Data
Date of Service:
Date of Service: September 02, 2023
Chief Complaint: [employer] Follow Up
Subjective:
Cardiac arrest overnight that lasted approximately 23 minutes with ROSC achieved. Likely respiratory code causing PEA arrest. Patient seen this morning in the ICU and she is on the ventilator on settings 18/350/5/100%. Blood gas reviewed and
ventilator adjustments made. Peak pressure 23, breathing at 18 breaths/min and her VTe is 310 mL. She is sedated on fentanyl at 25mcg/hr, and on pressors with Levophed at 5mcg/min. She is awake, following all commands and in NAD. Her left lower
quadrant colostomy prolapse, likely following CPR last night. Shelli, the patient's [id number]-fau, is at bedside and I answered all of her questions.
Review of Systems
General: Other (Unable to obtain - due to intubation)
Objective Data
Data Reviewed
Vital Signs / I&O / Oxygen:
Vital Signs
Temp Pulse Resp BP Pulse Ox
95.5 F L 60 18 132/64 99
09/02/23 07:43 09/02/23 07:38 09/02/23 07:38 09/02/23 03:15 09/02/23 07:38
Intake and Output
09/01/23 09/02/23 09/03/23
06:59 06:59 06:59
Intake Total 575 / 575
Output Total 1050 / 1050 400 / 400
Balance -475 / -475 -400 / -400
SaO2 99
Nasal Cannula flow liters per 3
minute
Physical Exam
General: Respiratory Distress (Negative) and Comfortable
HEENT: Normocephalic, Anicteric, Other (ETT in place) and Other (Dry mucous membranes)
Cardiovascular: S1-S2 and Peripheral Edema (+2 lower extremity pitting edema)
Respiratory: Wheeze (negative), Crackles (negative), Rhonchi (scattered bilaterally), Accessory Resp Muscle Use (negative), ET Tube and Other (Mechanical breath sounds heard bilaterally)
GI: Soft, Non Distended, Non Tender, Normal Bowel Sounds and Other (Left lower quadrant colostomy which is prolapsed and no active bleeding seen)
Neurology: Awake and Alert
Skin: Warm, Dry and Cyanosis (negative)
Labs/Micro/Reports
Lab Data
09/02/23 06:30
09/02/23 06:37
Laboratory Results
09/02/23 09/02/23
06:37 06:45
PT 15.3 H
INR 1.23
APTT 28.3
pH 7.31 L
pCO2 62 H
pO2 88
HCO3 31.2 H
O2 Delivery Level
Microbiology
08/31/23 19:23 Urine Urine Culture - Final
Escherichia coli
--- NOTE | 2023-09-02 09:01 | W.PN.CARDCBS ---
Today's Communication / Plan
-
Patient now intubated but awake on ventilator
Check repeat proBNP. Continue IV Lasix. Continue to keep negative. Weight is overall down. watch creatinine which is up to 1.4
? Infection/PNA
Abnormal troponin. Will repeat EKG but is AV paced.
Will check device
Recent echo with preserved ejection fraction of 50 to 55% with mildly elevated PA pressures.
Wean Levophed
Impression / Plan
-
Primary Modeling Agency Manager: Dr. Yon Soliz
Assessment:
Presentation with SOB, cough
Leukocytosis
Acute on chronic systolic congestive heart failure
respiratory failure with intubation 09/02/23
Elevated LFTs, possible passive congestion
History of cardiomyopathy with partial recovery, EF 40 to 45% by echo in 2021
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
Paroxysmal atrial fibrillation
Chronic amiodarone therapy
Prior Xarelto use, stopped 06/2023 due to anemia/thrombocytopenia
Iron deficiency anemia
Hypertension
Hyperlipidemia
Diabetes
CKD
History of TIA/CVA
History of partial motor seizure disorder
History of retinal artery branch occlusion in 2014
History of rheumatic fever as a child
Peripheral polyneuropathy
History of uterine cancer in 1989 status post hysterectomy and bilateral salpingo-oophorectomy
History of rectal cancer status postchemotherapy with 5�FEU, leucovorin, oxaliplatin
Hypoalbuminemia
ECHO 07/2013: EF 20 to 25%, global hypokinesis, moderate MR, moderate TR, PAP 40 to 45 mmHg, small circumferential pericardial effusion
ECHO 09/2017: EF 40 to 45%, ICD wire in RV, moderately dilated bilateral atria, ICD wire in right atrial cavity, moderate MR, mild TX
ECHO 12/2019: EF 55%, mild concentric LVH, stage I diastolic dysfunction, MAC, moderate MR, aortic sclerosis, mild AR, mild TR, PAP 20 to 25 mmHg, trivial pericardial effusion
Echo 10/2021: EF 40 to 45%, mild concentric LVH, ICD wire seen in right ventricle, ICD/pacer wire in right atrial cavity, mild to moderate MR, mild , mild AR, mild TR, small pericardial effusion (unchanged compared to prior). in afib during study
Echo 08/31/23: EF 50-55%, mild LVH, mild-mod MR, mild-mod TR. PA 50-55mmHg.
Plan:
-Events overnight noted. She had respiratory failure requiring intubation. The etiology of this remains unclear. She has been diuresing well and her weight is overall down. Will continue IV Lasix
-Creatinine is up to 1.4. Will need to continue to follow. Will repeat proBNP. ? White blood cell count is increasing to 19,000, possible aspiration/infection?
-Troponin is abnormal at 0.1. Unclear whether this is a nonmyocardial elevated troponin. Will continue to trend. EKG is AV paced but will repeat. Will check device.
-She has had history of cardiomyopathy with EF as low as 20 to 25% in the past. Echo this admission with EF 50 to 55% with PA pressures 50
-Wean Levophed as tolerated. Hold Coreg for now
-Repeat LFTs with diuresis, possibly passive congestion
-In AV paced rhythm on review of EKG and telemetry since admission. She is chronically on amiodarone therapy. Her outpatient anticoagulation (Xarelto) was stopped 06/2023 due to anemia and thrombocytopenia with subsequent improvement.
-She is followed by [facility] for iron deficiency anemia. Received iron infusion in July 2023. Hemoglobin stable at 10-11
-GDMT of SCHF has been limited as creatinine has previously been as high as 2.1 in the past. Follow with diuresis. Could consider trial of low-dose WALKER/ARB. Could also consider for SGLT2 inhibitor, however nephrology with significant concerns for
UTI in patient.
-TSH: 5.3
-d/w daughter
CC time 31 min
Progress Note - Modeling Agency Manager
Subjective
Date of Service: September 02, 2023
Events overnight noted. Patient now intubated on the ventilator. She is awake. Denies chest pains.
Objective
Labs:
09/02/23 06:30
09/02/23 06:37
Labs
Hgb 10.7 g/dL (12.0-16.0) L 09/02/23 06:30
Hct 37.1 % (37.0-47.0) 09/02/23 06:30
Plt Count 185 10^3/uL (130-400) 09/02/23 06:30
PT 15.3 Sec (11.4-14.6) H 09/02/23 06:37
INR 1.23 09/02/23 06:37
APTT 28.3 Sec (23.4-35.0) 09/02/23 06:37
Sodium 133 mmol/L (135-145) L 09/02/23 06:37
Potassium 4.5 mmol/L (3.5-5.1) 09/02/23 06:37
BUN 55 mg/dl (7-17) H 09/02/23 06:37
Creatinine 1.4 mg/dL (0.6-1.0) H 09/02/23 06:37
Glucose 492 mg/dl (70-99) H* 09/02/23 06:37
Troponins
08/31/23 09/02/23
04:45 06:37
Troponin I < 0.012 0.166 H*
Vital Signs and I&O:
Vital Signs
Temp Pulse Resp BP Pulse Ox
95.5 F L 60 18 132/64 99
09/02/23 07:43 09/02/23 07:38 09/02/23 07:38 09/02/23 03:15 09/02/23 07:38
Vital Signs
Temp Pulse Resp BP Pulse Ox
95.5 F L 60 18 132/64 99
09/02/23 07:43 09/02/23 07:38 09/02/23 07:38 09/02/23 03:15 09/02/23 07:38
Intake & Output
08/31/23 09/01/23 09/02/23 09/03/23
06:59 06:59 06:59 06:59
Intake Total 575 / 575
Output Total 1050 / 1050 400 / 400
Balance -475 / -475 -400 / -400
Physical Exam
Physical Exam
GEN: No distress, intubated, opens eyes
HEENT: supple, anicteric, mmm, ET tube
LUNGS: bilat rhonchi
CV: Reg, S1/S2, 1/6 syst LSB, no gallop
ABD: soft, BS+, NT/ND
EXT: +1 edema
NEURO: Gross non-focal
SKIN: No rash
--- NOTE | 2023-09-02 09:43 | CM ---
CM following re: discharge planning.
Reviewed pt's chart, met with pt and pt's daughter in law at bedside.
Pt is an 88 year old female, admitted with primary dx of SOB and GI symptoms. Pt transferred to ICU yesterday from 4W after Rapid response called, respiratory distress and pt was intubated. Pt currently remains intubated.
Per daughter in law, pt lives with and a son in a 2SH, 3 steps to enter, has 2 supportive children. Per daughter in law, pt ambulate with a walker at baseline and is known to [facility]. Per daughter in law, she expected pt will return back home
at discharge with [facility] and family support.
PCP: Yolis Caicedo
Pharmacy: [facility].
D.C plan; Daughter in law hopes that pt will be able to return back home with [facility] and family support.
CM will follow with discharge plan updates as hospitalization progresses
--- NOTE | 2023-09-02 11:52 | CHAP ---
Brittni was sleeping deeply, with her [id number] at her side. Emotional and spiritual support provided.
[2023-09-02] MEDS: NOVOLOG FLEXPEN-MODERATE RESISTANCE SC (12:13)
[2023-09-02 12:23] LABS: Glucose - Point of Care 275 mg/dl (70-99)
--- NOTE | 2023-09-02 12:30 | W.PN.HOSP.TC ---
Today's Communication/Plan
-
Start antibiotic
Check cultures
IV Lasix
Trend creatinine
Musician Instrumental recs
Assessment / Plan
Assessment / Plan
Cardiac arrest likely PEA secondary to hypoxemia
Intubated and on mechanical ventilation mechanical ventilation
Wean FiO2 per ICU
Fentanyl as needed for sedation
Plan for possible SBT in the morning
Monitor on telemetry
CXR with pneumonia aspiration vs. CHF
Discussed with laboratory courier plan to start broad-spectrum antibiotics with cefepime and Vanco
Sputum sample
Check blood cultures
Acute hypoxic respiratory insufficiency likely multifactorial
See each problem below
Acute on chronic systolic heart failure exacerbation
History of cardiomyopathy status post ICD placement
Wean oxygen started
Diuretics per cardiology-lasix 40mg daily.
ICD was interrogated
Strict I's and O's
Daily weights
Monitor creatinine closely.
May benefit from Entresto if blood pressure/creatinine can handle it
Consider SGLT2 inhibitor
Acute bronchitis likely viral
Bronchodilators. Will defer steroids to pulmonary.
Pro-Jaylen negative. Antibiotic was not started on admission
Prolapsed ostomy
Surgery consulted
E. coli UTI
Plan to start antibiotics
Chronic transaminitis likely secondary to vascular congestion secondary to heart failure
Continue to trend
Paroxysmal atrial fibrillation
Continue with carvedilol and amiodarone
Taken off anticoagulation due to severe anemia and GI bleed
History of iron deficiency anemia
Trend hemoglobin. Transfuse for hemoglobin less than 7.
CKD stage III
Trend creatinine with diuretics
Primary hypertension
Continue home meds
History of seizures
Continue Keppra 500 mg twice daily
Hypothyroidism
Continue Synthroid.
DVT ppx-hep sc
Discussed with laboratory courier
Discussed with patient son and [id number] at bedside
Total Critical Care Time 35 minutes. I was immediately available to the patient and staff. I personally examined, reviewed labs, diagnostic images/reports, interpretations, treatment plans, discussed patient care with other providers and family
or caregivers (if patient is unable to make decisions), entered orders as appropriate and documented the medical record.
Anticipated Discharge: > 48 hours
Subjective/Interval History
-
Date of Service: September 02, 2023
Overnight events noted
Code 9 likely PEA status post intubation
Currently in the ICU
Patient is awake and following commands
Objective Data
-
Labs:
Laboratory Results
09/02/23 09/02/23 09/02/23
06:30 06:37 06:45
WBC 19.0 H
Hgb 10.7 L
Hct 37.1
Plt Count 185
PT 15.3 H
INR 1.23
APTT 28.3
HCO3 31.2 H
Sodium 133 L
Potassium 4.5
Chloride 98
Carbon Dioxide 29
BUN 55 H
Creatinine 1.4 H
Glucose 492 H*
Calcium 9.7
Vital Signs:
Vital Signs
Temp Pulse Resp BP Pulse Ox
96.8 F L 60 20 104/51 98
09/02/23 11:26 09/02/23 12:15 09/02/23 12:15 09/02/23 12:15 09/02/23 12:15
I&O
09/01/23 09/02/23 09/03/23
06:59 06:59 06:59
Intake Total 575 / 575 85.2 / 85.2
Output Total 1050 / 1050 400 / 400 160 / 160
Balance -475 / -475 -400 / -400 -74.8 / -74.8
Physical Exam
-
General: Well Developed and No Apparent Distress
HEENT: Normocephalic, Atraumatic, Moist Mucous Membranes and Oxygen (ET tube on ventilator. 100% FiO2.)
Respiratory: Rhonchi
Cardiac: Regular Rhythm and S1/S2; Negative Murmur, Rub or Gallop
GI: Soft, Nontender, Nondistended, Normal Bowel Sounds and Ostomy; Negative Organomegaly
Rectal: Deferred by Provider
Musculoskeletal: No Clubbing, No Cyanosis and No Edema
Skin: Warm; Negative Rash
Neuro: Awake
--- NOTE | 2023-09-02 12:54 | CON.GS ---
Consultation
-
Requesting Provider: Randy
Performing Provider: Fraknlyn
Reason for Consultation: Stoma prolapse
Medical History
-
Chief Complaint: stoma prolapse
History of Present Illness:
88F admitted 2 days ago for respiratory insufficiency last night became unresponsive and had PEA. She underwent resuscitative efforts including CPR reportedly and was intubated. This am her team noticed her pre-existing stoma was prolapsing,
prompting surgical consult.
Past Medical History
Past Medical History: Other (CHF with ICD placement Type 2 diabetes, suboptimal controlled. CKD3 Abdominal aortic aneurysm. Hemolytic anemia. Hyponatremia. Essential hypertension. Paroxysmal AF HX epistaxis)
Past Surgical History: Other (Rectal cancer resection. Ostomy creation. ICD placement. Hysterectomy with Oophorectomy. Cataract extraction. Tonsillectomy. Appendectomy.)
Social History
Tobacco: Non-Smoker
Alcohol: None
Drug: None
Personal:
Family History
Family History: Reviewed & Noncontributory
Allergies / Home Medications
Allergy/AdvReac Type Severity Reaction Status Date / Time
amoxicillin Allergy Unknown Verified 08/31/23 04:16
erythromycin base Allergy avoids Verified 08/31/23 04:16
[Erythromycin Base] patient
taking
vytorin
Penicillins Allergy Swelling Verified 08/31/23 04:16
venom-honey bee Allergy Anaphylaxis Verified 08/31/23 04:16
[bee venom (honey bee)]
Beta-Blockers AdvReac coughing Verified 08/31/23 04:16
(Beta-Adrenergic Bloc
insect bites Allergy Swelling Uncoded 08/31/23 04:16
�Medication �Instructions �Recorded �Confirmed �Type
amiodarone 200 mg tablet (Pacerone) 200 mg PO DAILY Arrhythmia 11/04/20 08/31/23 History
atorvastatin 40 mg tablet 40 mg PO QPM High cholesterol 11/04/20 08/31/23 History
bimatoprost 0.01 % eye drops 1 drp BOTH EYES QPM Eye condition 11/04/20 08/31/23 History
(Lumigan)
brinzolamide 1 %-brimonidine 0.2 % 1 drp BOTH EYES BID Eye condition 11/04/20 08/31/23 History
eye drops,suspension (Simbrinza)
magnesium oxide 400 mg PO HS Supplement 11/04/20 08/31/23 History
bumetanide 0.5 mg tablet 0.5 mg PO QPM Fluid 12/04/22 08/31/23 History
Retention/Swelling
levetiracetam 500 mg tablet 500 mg PO BID Seizures 12/04/22 08/31/23 History
(Keppra)
multivitamin 1 tab PO DAILY Supplement 12/04/22 08/31/23 History
ascorbic acid (vitamin C) 500 mg 500 mg PO MOWEFR Supplement 02/18/23 08/31/23 History
tablet
carvedilol 25 mg tablet 25 mg PO BID Blood Pressure 02/18/23 08/31/23 History
cholecalciferol (vitamin D3) 25 25 mcg PO DAILY Supplement 02/18/23 08/31/23 History
mcg (1,000 unit) tablet (Vitamin
D3)
levothyroxine 50 mcg tablet 50 mcg PO DAILY Thyroid 06/27/23 08/31/23 History
(Synthroid)
Review of Systems
-
A 10 point review of systems was completed, and was negative except as per HPI.
Physical Exam
Vital Signs
Temp Pulse Resp BP Pulse Ox
96.8 F L 60 20 104/51 98
09/02/23 11:26 09/02/23 12:15 09/02/23 12:15 09/02/23 12:15 09/02/23 12:15
09/01/23 09/02/23 09/03/23
06:59 06:59 06:59
Actual Weight 75.8 kg 79.3 kg
Body Mass Index (BMI) 30.0
Lab Results
09/02/23 06:30
09/02/23 06:37
WBC 19.0 10^3/uL (4.8-10.8) H 09/02/23 06:30
Hgb 10.7 g/dL (12.0-16.0) L 09/02/23 06:30
Hct 37.1 % (37.0-47.0) 09/02/23 06:30
Plt Count 185 10^3/uL (130-400) 09/02/23 06:30
Abs Immat Gran (auto) 0.1 10^3/uL (0-0.05) H 08/31/23 04:45
Neutrophils % 87.0 % (42.2-75.2) H 08/31/23 04:45
Physical Exam
General: Intubated
GI: Soft, Non Tender, Non Distended and Other (stoma pPV with air and stool in the pouch, about 6cm of prolapsed bowel in the bag, manually reduced easily)
Data Reviewed
-
Labs: Labs Reviewed by me
Old Records: Reviewed
Assessment / Plan
-
88F with stoma prolapse following CPR for PEA arrest
Stoma functioning, no ulceration, mucosa appears pink and healthy
Manual reduction without difficulty
Suspect chest compressions have contributed to the prolapse
No need for surgical intervention
If there is concern for pain related to the prolapse, obstruction, mucosal ulceration/bleeding, or difficulty with appliance fit please call back. It is reasonable to manually reduce the prolapse PRN but it may continue to wax and wane.
[2023-09-02 13:14] LABS: Glucose - Point of Care 280 mg/dl (70-99)
[2023-09-02] MEDS: STERILE WATER FOR INJECTION 10 ML IV (13:22)
[2023-09-02] MEDS: NOVOLIN N vial 0.100000000000000006 UNITS SC (13:22)
[2023-09-02] MEDS: MAXIPIME 2000 MG IV (13:22)
--- NOTE | 2023-09-02 13:22 | PHA.VAN.IN ---
Assessment
- Assessment
Renal Function: Appears elevated from baseline
Renal Function may be Overestimated due to: Obesity. BMI = 30
Maximum Temperature: 97.3
Minimum Temperature: 96.5
Concomitant Antimicrobials: Cefepime
Plan
- Plan
Initial / Loading Dose: Vanco 2gm IV x 1 dose. Administration pending.
Maintenance Regimen: Dose by level
Monitoring: Random level 4/ AM
Pharmacokinetics Vancomycin I
- -
Patient Age: 88
Patient Sex: Female
Vancomycin Day #: 1
Indication: Pulmonary/Respiratory
Requesting Provider: Randy
Pertinent Antimicrobial Allergies:
PCN = swelling; Amoxicillin = unknown
Height / Weight:
Height 5 ft 4 in
Actual Weight 79.3 kg
IBW in k.7
Adjusted BW in k.5
Pertinent Past Medical History: CKD3; BMI = 30
- Vital Signs / Lab Results
Temp Pulse Resp BP Pulse Ox
96.8 F L 60 20 104/51 98
09/02/23 11:26 09/02/23 12:15 09/02/23 12:15 09/02/23 12:15 09/02/23 12:15
Lab Results - Hematology
08/31/23 09/01/23 09/02/23
04:45 03:53 06:30
WBC 11.5 H 12.5 H 19.0 H
Lab Results - Chemistry
08/31/23 09/01/23 09/02/23
04:45 03:53 06:37
BUN 33 H 46 H 55 H
Creatinine 1.0 1.3 H 1.4 H
Estimated Creat Clear
Albumin 3.2 L 2.9 L
09/02/23
06:37
Lactic Acid 3.1 H
Lab Results - Urine
08/31/23
19:23
Urine Nitrite (Reflex) Negative
Leukocyte Esterase Rfl 2+ A
Urine WBC (Reflex) 6-10
Ur Squamous Epith Cells >30
Urine Bacteria (Reflex) Many A
Microbiology Results
08/31/23 19:23 Urine Culture - Final
Urine Escherichia coli
[2023-09-02] MEDS: VANCOCIN 540 MG IV (13:28)
[2023-09-02 13:33] LABS: Lactic Acid 2.3 mmol/L (0.7-2.0)
--- NOTE | 2023-09-02 14:40 | PTCARENOTE ---
There was 3 separate occurrences where PT's ACID appeared to beeping for around 20-30 seconds , notified DR Osorio, [employer] was contacted and will be reviewing the AICD, Assessment remains unchanged
--- NOTE | 2023-09-02 15:21 | PTCARENOTE ---
Assessment remains unchanged, PT has periods of wakefulness, nod head appropriately, wants to be unrestrained and wants something to Drink, explained to the family why she can not have mouth swabs, but I am able to do mouth care to provide some
relief, Fentanyl increased for pain to chest from CPR
[2023-09-02] MEDS: LEVOPHED 250 IV (16:05)
[2023-09-02] MEDS: PROTONIX IV 40 MG IV (16:11)
[2023-09-02] MEDS: KEPPRA 500 MG IV (16:11)
[2023-09-02] MEDS: NSS (PRESERVATIVE FREE) 10 ML IV (16:11)
[2023-09-02 17:04] LABS: Lactic Acid 1.8 mmol/L (0.7-2.0)
[2023-09-02] MEDS: LUMIGAN 0.01% 1 DROP BOTH EYES (17:04)
--- NOTE | 2023-09-02 17:13 | PTCARENOTE ---
PT placed on CPAP wean 10/5 50%, PT tolerating, adjusted to 5/5 50%, PT continues to tolerate, will evaluate ABG
[2023-09-02 17:20] LABS: Troponin I 0.563 ng/ml
[2023-09-02 17:31] LABS: B.E. 5.2 mmol/L; O2 Saturation % 98.5 % (94-98); PCO2 58 mmHg (32-35); PO2 134 mmHg (83-108); pH 7.35 (7.35-7.45)
[2023-09-02] MEDS: NOVOLOG FLEXPEN-MODERATE RESISTANCE 3 UNITS SC (17:33)
[2023-09-02 17:36] LABS: Glucose - Point of Care 208 mg/dl (70-99)
[2023-09-02 17:53] LABS: O2 Therapy 60%
[2023-09-02] MEDS: ROBITUSSIN TUBE ×2 (18:09→20:34)
--- NOTE | 2023-09-02 20:00 | PTCARENOTE ---
Patient received in bed, intubated and sedated on Fentanyl. arouses easily, nods head, follows commands,. Bilateral wrist restraints maintained. 100% Vpaced on monitor, afebrile, blood pressure as documented. weak but palpable pulses throughout,
trace lower extremity edema noted. #8 ETT at 24 cm at the left lip, tolerating A/C 20 TV 400 FIO2 50% Peep 5, lungs diminished with crackles throughout left, pulse ox 97%. Abdomen round with positive bowel sounds. Thermister schilling draining maikol
urine. #18 g in RAC with fentanyl and levophed gtts infusing as documented. #20 g in right foream flushed and patent. Turned and repositioned.
[2023-09-02] MEDS: SUBLIMAZE 25 MCG IV (20:24)
--- NOTE | 2023-09-02 22:00 | PTCARENOTE ---
Propofol started for RASS,patient attempting to sit up,pulling at tube, family at bedside.
[2023-09-02] MEDS: LANTUS 0.149999999999999994 UNITS SC (22:47)
[2023-09-02 22:52] LABS: Glucose - Point of Care 204 mg/dl (70-99)
[2023-09-02 23:50] LABS: Triglycerides 80 mg/dl (10-149)
[2023-09-03] VITALS (30 sets, daily range): BP systolic 101–145; BP diastolic 44–85; BMI 28.9
[2023-09-03] MEDS: HEPARIN 5000 UNITS SC ×3 (00:01→16:23)
[2023-09-03] MEDS: KEPPRA 500 MG IV ×3 (00:01→19:32)
--- NOTE | 2023-09-03 00:11 | PTCARENOTE ---
Patient resting comfortably, will open eyes to verbal stimuli, turned and repositioned. No other changes in assessment
[2023-09-03 00:32] LABS: Glucose - Point of Care 192 mg/dl (70-99)
[2023-09-03] MEDS: NOVOLOG FLEXPEN-MODERATE RESISTANCE 1 UNITS SC ×2 (00:42→05:46)
[2023-09-03] MEDS: STERILE WATER FOR INJECTION 10 ML IV ×2 (02:10→14:52)
[2023-09-03] MEDS: MAXIPIME 2000 MG IV (02:10)
--- NOTE | 2023-09-03 03:56 | PTCARENOTE ---
CHG bath given, turned and repositioned, labs sent
[2023-09-03] MEDS: DIPRIVAN 100 IV (04:04)
[2023-09-03 04:14] LABS: % Basophils 0.4 % (0-2); % Immature Granulocytes 0.5 % (0-0.5); % Lymphocytes 1.7 % (20.5-51.1); % Monocytes 3.2 % (1.7-9.3); % Neutrophils 94.2 % (42.2-75.2); Absolute Basophils 0.1 10^3/uL (0-0.2); Absolute Immature Granulocytes 0.1 10^3/uL (0-0.05); Absolute Lymphocytes 0.3 10^3/uL (1.2-3.4); Absolute Monocytes 0.5 10^3/uL (0.1-0.6); Absolute Neutrophils 15.4 10^3/uL (1.4-6.5); Hematocrit 31.9 % (37.0-47.0); Hemoglobin 10.2 g/dL (12.0-16.0); Mean Corpuscular Hgb 27.3 pg (27.0-31.0); Mean Corpuscular Volume 85.5 fL (81.0-99.0); Mean Platelet Volume 10.2 fL (7.4-10.4); Nucleated Red Blood Cells % 0 %; Platelet Count 175 10^3/uL (130-400); Red Blood Cell Count 3.73 10^6/uL (4.20-5.40); Red Cell Dist. Width 17.5 % (11.5-14.5); White Blood Cell Count 16.4 10^3/uL (4.8-10.8)
[2023-09-03 04:31] LABS: Vancomycin Random 12.9 ug/ml
[2023-09-03 04:39] LABS: NT-proBNP 4830 pg/ml; Troponin I 0.306 ng/ml
[2023-09-03 05:00] LABS: ALT (SGPT) 112 U/L (0-35); AST (SGOT) 78 U/L (14-36); Albumin 2.5 g/dl (3.5-5.0); Alkaline Phosphatase 123 U/L (38-126); Blood Urea Nitrogen 60 mg/dl (7-17); Calcium 9.2 mg/dl (8.4-10.2); Carbon Dioxide 29 mmol/L (22-30); Chloride 107 mmol/L (98-107); Direct Bilirubin 0.6 mg/dl (0.0-0.4); Estimated Creatinine Clearance 37 ml/min; Glucose 169 mg/dl (70-99); Potassium 4.1 mmol/L (3.5-5.1); Sodium 139 mmol/L (135-145); Total Bilirubin 1.4 mg/dl (0.2-1.3); Total Protein 4.5 g/dl (6.3-8.2); eGFR 48.94
[2023-09-03] MEDS: SUBLIMAZE 100 IV (05:01)
[2023-09-03] MEDS: LEVOPHED 250 IV (05:01)
[2023-09-03 06:06] LABS: B.E. 8.5 mmol/L; HCO3 31.6 mmol/L (21-28); O2 Saturation % 97.8 % (94-98); PCO2 37 mmHg (32-35); PO2 85 mmHg (83-108); pH 7.54 (7.35-7.45)
--- NOTE | 2023-09-03 07:17 | W.PN.INTV ---
Today's Communication / Plan
Recommendations
SBT trials, hypoxemia ongoing
Continue abx for UTI, stop vanc if MRSA neg
Ongoing diuresis if needed but this is limited by JARED
Long discussion with son regarding extubation attempt/reintubation
Will not extubate today while discussion with family ongoing on GOC
Assessment
-
88-year-old female with history of CHF, s/p ICD, paroxysmal atrial fibrillation, hypertension, diabetes, presenting to ER for SOB and cough. Reportedly COVID tested negative at home. On arrival, satting 93% and placed on O2. CXR demonstrating
congestion with L sided pleural effusion, she is admitted for acute CHF exacerbation. She denies any prior known history of lung disease in the past. Lifelong nonsmoker. Denies family history of lung disease. She was last seen in our office in
[address] Bradshaw for SOB. Prior PFT in past (last obtained 2021) showing normal findings. Patient was being managed on the hospitalist service on the floor and being diuresed. Unfortunately on the evening of 08/31she developed
worsening hypoxia and suffered a PEA cardiac arrest. ROSC obtained, and patient was transferred to the ICU for further care. Survey Research Analyst services consulted for additional management/recommendations; we were already following as a pulmonary
seo consultant.
Impression:
#In-hospital cardiac arrest likely due to hypoxia
Acute hypoxic respiratory failure s/p inubation and MV
#Aspiration pneumonia/HAP
#Septic shock due to pneumonia as above
#Lactic acidosis due to above
#Elevated troponin likely due to demand ischemia with type II LA
#Acute kidney injury
#Hyperglycemia
#Acute HFpEF exacerbation
#L pleural effusion
#Positive urinalysis with GNR
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
CHF with ICD placement
Type 2 diabetes, suboptimal controlled.
CKD3
Abdominal aortic aneurysm.
Hemolytic anemia.
Hyponatremia.
Essential hypertension.
Paroxysmal AF
Rectal cancer resection.
Ostomy creation.
ICD placement.
Hysterectomy with Oophorectomy.
Cataract extraction.
Tonsillectomy.
Appendectomy.
Plan
Patient is critically ill on mechanical ventilation and vasopressors albeit she is following commands and in NAD
Keep off sedation
Rass goals 0
AE HFrEF
ProBNP elevated
CXR obtained indicating pulmonary edema, L sided pleural effusion/ LE swelling noted
Cards eval obtained, lasix held due to hypotension
Small effusion noted, does not seem amenable for sampling
Can US if enlarging to evaluate
ECHO results reviewed--reduced function 40-45%
Repeat TTE done on 08/31/2023 shows preserved LVEF at 50-55% with normal sized RV and mild�moderate TR with PH
Intubated 09/02/23 for worsening hypoxemia/resp distress s/p PEA arrest
Continue postcardiac arrest interventions including maintaining MAP >65, wean vasopressors as tolerated and continuing mechanical ventilation with daily SAT/SBT if clinically appropriate
Titrate FiO2 and PEEP to keep SpO2 >90-94%
Maintain plateau pressure <30; maintain driving pressure 15�20
Continue nebulized bronchodilators with DuoNebs
Hold off on systemic steroids at this time given no known history of COPD or asthma and she is not currently wheezing
SBT trial today, low TVs/occasional desat noted
Will not extubate today until family has decided on code status, she has high rate of extubation failure
No known history of lung disease is noted -- she was last seen in our office in 2021/PFTs obtained then were normal
Patient has a positive urinalysis with culture showing GNR--> E. coli.
Broad-spectrum antibiotics with cefepime and IV vancomycin, can likely stop vanc if MRSA neg
Transition CFP to CTX for UTI
Micro reviewed
Sputum culture pending
MRSA neg
Legion/strep Ag neg
NPO now, can place OGT for TFs if prolonged
Aspiration precautions
Mild LFT elevation
GI ppx
Renal function worsening
History of CKD
Lasix given intermittently
I/Os, follow UO
Replete electrolytes as indicated
History of diabetes
Maintain BG goal 140�180 � continue Lantus qHS
Continue ISS moderate resistance, and can raise or reduce depending on her BG trend
CBC stable
History of rectal ca s/p resection/ostomy
DVT prophylaxis with HSQ - raise to q8hr
Mild anemia, no indication for transfusion at this time
Family Discussions
Yared 09/03/23- Updated son at bedside; agrees with DNR, he is not sure about reintubation if she were to decompensate post extubation. He knows that she would not want tracheotomy done and would not want to be in a facility. He will try to locate her
advanced directives. He will discuss with family regarding extubation trial and re-intubation decision making.
Padilla - Updates were given to the patient's family and all questions were answered. I discussed the case with the patient's [id number], Shelli.
Diagnostic Data
CXR 08/31/23- 1. Mild pulmonary vascular congestion.
2. Small left pleural effusion is suspected. Consider PA and lateral views when possible.
3. Unchanged linear opacity within the right midlung zone, consistent with subsegmental atelectasis or scarring.
CXR 09-02-2023: Progressive right lung opacity, as described; congestive heart failure versus pneumonia. Slight increased hazy retrocardiac opacity; likely small left pleural effusion, though cannot exclude associated atelectasis or pneumonia.
Endotracheal tube tip 4.5 cm above the angelica.
ECHO 10/03/21- Moderately reduced systolic function. No regional wall motion abnormalities are seen. LV ejection fraction is 40-45% by visual estimation. Mild concentric left ventricular hypertrophy. Diastolic function indeterminate (AF). Indexed LA
volume is severely abnormal (> 48 mL/m2). ICD wire seen in right ventricle. ICD/pacemaker wire present in the right atrial cavity. Mild to moderate mitral regurgitation. Mild aortic stenosis.
Mild aortic regurgitation. Mild tricuspid regurgitation. Small pericardial effusion. Compared to prior echocardiogram from December 10, 2019, LV function was previously estimated at normal, 55%. Previously, there is aortic sclerosis without stenosis
and now there is mild aortic stenosis. She was in sinus rhythm at that time although now in atrial fibrillation. Small pericardial effusion is unchanged.
PFT 10/04/21: FEV1 1.83L, 102%; FVC 2.35L 97% ratio 78. TLC 4.25L 86%, DLCO 74%
-----
Critical Care time 45 mins -- The patient is admitted for acute critical illness for the treatment of vital organ failure and/or prevention of further life-threatening conditions. Total care includes time spent in review of history, physical exam,
medications, hemodynamic/ventilator parameters, laboratory data, imaging and discussion with house staff, pharmacy, respiratory therapy, fixing machine operator, and nursing.
Subjective Dataa
Subjective Data
Date of Service:
Date of Service: September 03, 2023
Chief Complaint: Survey Research Analyst Follow Up
Subjective:
patient seen and examined, remains critically ill
sbt ongoing, but there is intermittent desaturation
son at bedside
Objective Data
Data Reviewed
Vital Signs / I&O / Oxygen:
Vital Signs
Temp Pulse Resp BP Pulse Ox
97.1 F 64 20 123/58 96
09/03/23 03:16 09/03/23 07:00 09/03/23 05:00 09/03/23 07:00 09/03/23 07:00
Intake and Output
09/02/23 09/03/23 09/04/23
06:59 06:59 06:59
Intake Total 547.7 / 547.7
Output Total 400 / 400 745 / 745
Balance -400 / -400 -197.3 / -197.3
SaO2 [CPAP/PSV] 92
SaO2 [A/C] 98
SaO2 96
Nasal Cannula flow liters per 3
minute
Physical Exam
General: Respiratory Distress (Negative), Comfortable and Other (critically ill)
HEENT: Normocephalic, Anicteric, Other (ETT in place) and Other (Dry mucous membranes)
Cardiovascular: S1-S2, Irregular Rhythm (rate controlled) and Peripheral Edema (+2 lower extremity pitting edema)
Respiratory: Wheeze (negative), Crackles (negative), Rhonchi (scattered bilaterally), Non-Labored Respirations, ET Tube and Other
GI: Soft, Non Distended, Non Tender, Normal Bowel Sounds and Other (Left lower quadrant colostomy which is prolapsed and no active bleeding seen)
Neurology: Awake, Alert, Oriented (to self, can nod head yes/no), No Motor Deficits and Other (able to communicate/awake on vent)
Skin: Warm, Dry and Cyanosis (negative)
Labs/Micro/Reports
Lab Data
09/03/23 03:53
09/03/23 03:53
Laboratory Results
09/02/23 09/03/23
17:23 05:58
pH 7.35 7.54 H
pCO2 58 H 37 H
pO2 134 H 85
HCO3 32.0 H 31.6 H
O2 Delivery Level 60%
Microbiology
09/02/23 13:05 Nose Nasal Screen MRSA (PCR) - Final
MRSA not detected - performed by PCR methodology.
09/02/23 13:05 Urine Legionella Urinary Antigen - Final
Negative for Legionella pneumophila Serogroup 1 antigen.
A negative result does not rule out the possiblity of
Legionella infection due to other serogroups or species of
Legionella. Clinical correlation is recommended.
09/02/23 13:05 Urine Streptococcus pneumoniae Antigen (M - Final
Negative for Streptococcus pneumoniae antigen.
A negative result does not exclude infection with
Streptococcus pneumoniae. Clinical correlation is
recommended.
08/31/23 19:23 Urine Urine Culture - Final
Escherichia coli
[2023-09-03] MEDS: DUONEB 3 ML INH ×3 (07:24→20:03)
--- NOTE | 2023-09-03 08:10 | PTCARENOTE ---
Received pt intubated and sedated. Opened her eyes to verbal stimuli. Right AC#20g protective catheter with Propofol, Fentanyl and Levophed. Right wrist protective catheter flushed and patent, pt grimaced with flush. Doppler pedal pulses, +2
anasarca. Heels elevated on pillows, adhesive foam dressings intact. Sacral silicone border dressing changed. DTI present under dressing, cleansed with CHG cloth, skin barrier applied, and new Optifoam dressing applied. Repositioned in the bed. Pt
to be laced on SBT/weaning trial. #8ETT secured centered 24cm lip. Ventilator as documented. Fentanyl drip tapered to 25mcg/hr and Propofol turned off for weaning trial. Levophed tapered off per protocol for MAP>65. Hypoactive BSX4. Colostomy with
protracted stoma. Stoma pink and moist. Temperature sensing Ball catheter with small amounts of maikol urine. Pt was informed of the plan of care. She nodded her head in understanding. Safe environment maintained.
[2023-09-03] MEDS: NSS (PRESERVATIVE FREE) 10 ML IV (09:51)
[2023-09-03] MEDS: SIMBRINZA 1%-0.2% OPHTH SUSP 1 DROP BOTH EYES ×2 (09:52→19:32)
[2023-09-03] MEDS: PROTONIX IV 40 MG IV (09:52)
--- NOTE | 2023-09-03 09:59 | W.PN.CARDCBS ---
Addendum entered and electronically signed by Pb Crowe MD 09/03/23 16:57:
Correction, patient already on amiodarone will increase to 3 times daily during hospital stay and discharge 200 mg twice daily, then 200 mg daily
Addendum entered and electronically signed by Pb Crowe MD 09/03/23 16:55:
Interrogation of device shows that she had VF that was under sensed and eventually got shocked. This probably did not cause her respiratory failure. We reprogrammed her device to increase sensitivity. Given that she has had a VF that required
treatment, will add amiodarone. Will update son.
Original Note:
Today's Communication / Plan
-
Overall improved
Hopefully to extubate later today
Eventual restart of IV furosemide then oral
Interrogate [employer] ICD later today
Resume oral cardiac meds after extubation
Impression / Plan
-
Primary Sociology Instructor: Dr. Yon Soliz
Assessment:
Presentation with SOB, cough
VDRF, Presumed Aspiration/HAP
UTI
Nonischemic myocardial injury related to pneumonia and respiratory failure
Acute on chronic systolic congestive heart failure
respiratory failure with intubation 09/02/23
Elevated LFTs, possible passive congestion
History of cardiomyopathy with partial recovery, EF 40 to 45% by echo in 2021
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
Paroxysmal atrial fibrillation
Chronic amiodarone therapy
Prior Xarelto use, stopped 06/2023 due to anemia/thrombocytopenia
Iron deficiency anemia
Hypertension
Hyperlipidemia
Diabetes
CKD
History of TIA/CVA
History of partial motor seizure disorder
History of retinal artery branch occlusion in 2014
History of rheumatic fever as a child
Peripheral polyneuropathy
History of uterine cancer in 1989 status post hysterectomy and bilateral salpingo-oophorectomy
History of rectal cancer status postchemotherapy with 5�FEU, leucovorin, oxaliplatin
Hypoalbuminemia
ECHO 07/2013: EF 20 to 25%, global hypokinesis, moderate MR, moderate TR, PAP 40 to 45 mmHg, small circumferential pericardial effusion
ECHO 09/2017: EF 40 to 45%, ICD wire in RV, moderately dilated bilateral atria, ICD wire in right atrial cavity, moderate MR, mild [place]
ECHO 12/2019: EF 55%, mild concentric LVH, stage I diastolic dysfunction, MAC, moderate MR, aortic sclerosis, mild AR, mild TR, PAP 20 to 25 mmHg, trivial pericardial effusion
Echo 10/2021: EF 40 to 45%, mild concentric LVH, ICD wire seen in right ventricle, ICD/pacer wire in right atrial cavity, mild to moderate MR, mild , mild AR, mild TR, small pericardial effusion (unchanged compared to prior). in afib during study
Echo 08/31/23: EF 50-55%, mild LVH, mild-mod MR, mild-mod TR. PA 50-55mmHg.
Plan:
Cardiac status is stable although she is still volume overloaded. Furosemide is currently on hold, as she recovers from pneumonia will need to restart. At present defer to animal attendants and trainers.
ICD to be interrogated later today, device is beeping with an alert. Suspect this will not be a major issue.
Hemodynamics are improved, she remains in sinus rhythm. No significant rhythm disturbances on telemetry. Now off norepinephrine.
Most of her cardiac medications are on hold, resume when she is presumably extubated later today
As above, will need additional diuresis once stable. Current diagnosis would be acute HFpEF as EF has improved to 50-55%. Optimization of GDMT has been difficult in the past with a renal insufficiency. Probably not SGLT2 candidate related to UTIs
Overall improved
Discussed with son at bedside
CC time 31 min
Progress Note - Sociology Instructor
Subjective
Date of Service: September 03, 2023:
Awake, alert, nods in response to questions, currently on spontaneous breathing trial, PEEP 5, pressure support 5
Allergies: Amoxicillin, erythromycin, beta-blockers
Outpatient meds: Amiodarone 200 mg a day, atorvastatin 40 mg a day, bumetanide 0.5 mg daily carvedilol 25 mg twice daily, Keppra, Synthroid 50 mcg daily, Lumigan, mag oxide, Simbrinza
Current meds amiodarone 200 mg a day on hold, atorvastatin 40 mg a day, on hold,, carvedilol 25 mg twice daily on hold, Synthroid, 50 mcg daily on hold, aspirin 81 mg daily on hold, DuoNebs, norepinephrine, insulin, fentanyl, cefepime, Vanco, subcu
heparin, Protonix IV, IV Keppra
PMH/PSH/SH/FH: Reviewed
Review of systems: Negative except as above
White count 16.4, hemoglobin 10.2 blood gas pending, sodium 139, potassium 4.1, BUN/creatinine 60 and 1.1, troponin 0.57, proBNP 4830
Chest x-ray pneumonia
EKG AV paced
AB.54, 85, 37
E. coli in urine
Objective
Labs:
09/03/23 03:53
09/03/23 03:53
Labs
Hgb 10.2 g/dL (12.0-16.0) L 09/03/23 03:53
Hct 31.9 % (37.0-47.0) L 09/03/23 03:53
Plt Count 175 10^3/uL (130-400) 09/03/23 03:53
PT 15.3 Sec (11.4-14.6) H 09/02/23 06:37
INR 1.23 09/02/23 06:37
APTT 28.3 Sec (23.4-35.0) 09/02/23 06:37
Sodium 139 mmol/L (135-145) 09/03/23 03:53
Potassium 4.1 mmol/L (3.5-5.1) 09/03/23 03:53
BUN 60 mg/dl (7-17) H 09/03/23 03:53
Creatinine 1.1 mg/dL (0.6-1.0) H 09/03/23 03:53
Glucose 169 mg/dl (70-99) H 09/03/23 03:53
Troponins
09/02/23 09/02/23 09/02/23
06:37 13:05 16:39
Troponin I 0.166 H* 0.570 H* D 0.563 H*
09/03/23
03:53
Troponin I 0.306 H*
Vital Signs and I&O:
Vital Signs
Temp Pulse Resp BP Pulse Ox
35.8 C L 60 18 123/58 91
09/03/23 07:53 09/03/23 09:54 09/03/23 09:54 09/03/23 07:00 09/03/23 09:54
Vital Signs
Temp Pulse Resp BP Pulse Ox
35.8 C L 60 18 123/58 91
09/03/23 07:53 09/03/23 09:54 09/03/23 09:54 09/03/23 07:00 09/03/23 09:54
Intake & Output
09/01/23 09/02/23 09/03/23 09/04/23
07:59 07:59 07:59 07:59
Intake Total 575 / 575 547.7 / 547.7
Output Total 1050 / 1050 400 / 400 745 / 745
Balance -475 / -475 -400 / -378.7 -197.3 / -197.3
Physical Exam
Physical Exam
123/58, pulse 60, temp 35.8, weight is 76.43 kg, down 2.9 kg, intake and output -0.2 L
Awake, alert, answers questions with nods, on spontaneous breathing trial
Head neck exam intubated
Lungs relatively clear
Cardiac regular rate and rhythm no obvious murmurs JVD probably okay
Abdomen benign
Extremities probable anasarca
Neuro nonfocal
[2023-09-03 10:11] LABS: B.E. 6.8 mmol/L; HCO3 32.8 mmol/L (21-28); O2 Saturation % 97.3 % (94-98); PCO2 53 mmHg (32-35); PO2 91 mmHg (83-108)
--- NOTE | 2023-09-03 10:15 | PHA.VAN.FU ---
Vancomycin Assessment / Plan
- Assessment
Renal Function: SCR Decreasing (If continues to decrease, change to scheduled dosing)
WBC's are: Trending Down
In the past 24 hrs, patient has been: Afebrile
Concomitant Antimicrobials: Cefepime
- Assessment - Therapeutic Drug Monitoring
Random Level: 12.9
- Dosing Plan
Dosing by Level: Re-dose today (1000mg)
- Monitoring Plan
Random Level: 09/04/23 @0600
- Follow Up
Pharmacy will continue to follow.
Vancomycin Follow UP
- -
Patient Age: 88
Patient Sex: Female
Vancomycin Day #: 2
Indication: Pulmonary/Respiratory
Requesting Provider: Randy
Pertinent Antimicrobial Allergies:
PCN = swelling; Amoxicillin = unknown
Height / Weight:
Height 5 ft 4 in
Actual Weight 76.43 kg
IBW in k.7
Adjusted BW in k.5
Pertinent Past Medical History: CKD3; BMI = 30
- Vital Signs / Lab Results
Temp Pulse Resp BP Pulse Ox
96.4 F L 60 18 123/58 91
09/03/23 07:53 09/03/23 09:54 09/03/23 09:54 09/03/23 07:00 09/03/23 09:54
Lab Results - Hematology
09/01/23 09/02/23 09/03/23
03:53 06:30 03:53
WBC 12.5 H 19.0 H 16.4 H
Lab Results - Chemistry
09/01/23 09/02/23 09/03/23
03:53 06:37 03:53
BUN 46 H 55 H 60 H
Creatinine 1.3 H 1.4 H 1.1 H
Estimated Creat Clear 31 29 37
Albumin 2.9 L 2.5 L
09/02/23 09/02/2324
06:37 13:05 16:39
Lactic Acid 3.1 H 2.3 H 1.8
Microbiology Results
09/02/23 13:05 Nasal Screen MRSA (PCR) - Final
Nose MRSA not detected - performed by PCR methodology.
09/02/23 13:05 Legionella Urinary Antigen - Final
Urine Negative for Legionella pneumophila Serogroup 1 antigen.
A negative result does not rule out the possiblity of
Legionella infection due to other serogroups or species of
Legionella. Clinical correlation is recommended.
Streptococcus pneumoniae Antigen (M - Final
Negative for Streptococcus pneumoniae antigen.
A negative result does not exclude infection with
Streptococcus pneumoniae. Clinical correlation is
recommended.
08/31/23 19:23 Urine Culture - Final
Urine Escherichia coli
Therapeutic Drug Monitoring
Random Vancomycin 12.9 ug/ml 09/03/23 03:53
--- NOTE | 2023-09-03 11:14 | CM ---
Patient seen at bedside. Patient remains intubated in ICU. CM available to assist with discharge planning needs.
Plan; TBD; intubated currently
[2023-09-03 11:52] LABS: Glucose - Point of Care 177 mg/dl (70-99)
--- NOTE | 2023-09-03 12:30 | PTCARENOTE ---
Right nare DHT inserted and secured 55cm. Verified placement with air bolus. Abdominal film pending.
--- NOTE | 2023-09-03 13:35 | W.PN.HOSP.TC ---
Today's Communication/Plan
-
vent weaning per Coil Tester
continue abx
f/u resp culture
Assessment / Plan
Assessment / Plan
1. Cardiac arrest likely PEA secondary to hypoxemia
Acute hypoxic respiratory failure/ VDRF
-Ongoing vent weaning/sedation vacation/spontaneous breathing trial
-Chest x-ray showing possible aspiration pneumonia versus heart failure
-Currently on empiric antibiotic vancomycin and cefepime
-Blood culture negative. Legionella/strep urinary antigen negative. Respiratory culture pending
2. Acute on chronic systolic heart failure exacerbation
History of cardiomyopathy status post ICD placement
-Diuretics per cardiology- currently on hold
-ICD was interrogated
-Strict I's and O's
-Daily weights
-Monitor creatinine closely.
3. Acute bronchitis likely viral
-Pro-Jaylen negative. Antibiotic was not started on admission
4. Prolapsed ostomy
-Surgery evaluated and was able to be reduced at bedside
-Continue monitoring for output/ileus
5. E. coli UTI
-on cefepime for simultaneous pulm issues.
6. Chronic transaminitis
- likely secondary to vascular congestion secondary to heart failure vs amiodarone related vs other
7. Paroxysmal atrial fibrillation
-Continue with carvedilol and amiodarone
-Taken off anticoagulation due to severe anemia and GI bleed
8. History of iron deficiency anemia
- Trend hemoglobin. Transfuse for hemoglobin less than 7.
9 . CKD stage IIIa
-Trend creatinine with diuretics
Primary hypertension
History of seizures - Continue Keppra 500 mg twice daily
Hypothyroidism - Continue Synthroid.
DVT ppx-hep sc
Total Critical Care Time 37 minutes. I was immediately available to the patient and staff. I personally examined, reviewed labs, diagnostic images/reports, interpretations, treatment plans, discussed patient care with other providers and family
or caregivers (if patient is unable to make decisions), entered orders as appropriate and documented the medical record.
Anticipated Discharge: > 48 hours
Subjective/Interval History
-
Date of Service: September 03, 2023
remains intubated
waking up off sedation
afebrile
not on pressors
Objective Data
-
Labs:
Laboratory Results
09/03/23 09/03/23 09/03/23
03:53 05:58 10:02
WBC 16.4 H
Hgb 10.2 L
Hct 31.9 L
Plt Count 175
HCO3 31.6 H 32.8 H
Sodium 139
Potassium 4.1
Chloride 107
Carbon Dioxide 29
BUN 60 H
Creatinine 1.1 H
Glucose 169 H
Calcium 9.2
Total Bilirubin 1.4 H
AST 78 H
ALT 112 H
Alkaline Phosphatase 123
Vital Signs:
Vital Signs
Temp Pulse Resp BP Pulse Ox
96.4 F L 60 20 123/58 96
09/03/23 07:53 09/03/23 13:23 09/03/23 13:23 09/03/23 07:00 09/03/23 13:23
I&O
09/02/23 09/03/23 09/04/23
06:59 06:59 06:59
Intake Total 547.7 / 569.7 27.0 / 27.0
Output Total 400 / 400 745 / 810 260 / 260
Balance -400 / -400 -197.3 / -240.3 -233.0 / -233.0
Review of Systems
-
Unable to obtain full review of systems at this time due to: Patient Intubation
Physical Exam
-
General: No Apparent Distress
HEENT: Oxygen (ET tube on ventilator.)
Respiratory: Rhonchi
Cardiac: Regular Rhythm and S1/S2; Negative Murmur, Rub or Gallop
GI: Soft, Nontender, Nondistended and Ostomy
Musculoskeletal: No Edema
Skin: Warm; Negative Rash
Neuro: Awake (off sedation)
[2023-09-03] MEDS: NOVOLOG FLEXPEN-MODERATE RESISTANCE SC ×2 (14:47→17:30)
[2023-09-03] MEDS: ROBITUSSIN TUBE (14:47)
[2023-09-03] MEDS: ROCEPHIN 1000 MG IV (14:52)
[2023-09-03] MEDS: ROBITUSSIN 200 MG TUBE ×3 (14:52→21:34)
--- NOTE | 2023-09-03 14:56 | PN.CDI ---
CDI
- -
CDI:
Physician Documentation Request
Admit Date: 08/31/23 06:35
Dear Doctor Aaron,
Hospitalist progress note states acute on chronic systolic heart failure exacerbation
08/30 echo Reports and EF of 50-55% ' When compared to the most recent echocardiogram from 10/03/2021, changes have occurred. The LVEF is now estimated 50-55% rather than 40-45%....'
Please clarify the type of CHF you are evaluating, treating or monitoring.
Type
Systolic
Diastolic
Combined Systolic/Diastolic
Other
Use of terms such as suspected, likely, concern for, or probable (associated with a specific diagnosis that is being evaluated, monitored, or treated as if it exists) are acceptable and can be coded in the inpatient setting, when documented at the
time of discharge.
Thank you,
Carly Ansari RN, BSN
CDI Specialist
tiger text
Please use your independent medical judgment in providing your response.
--- NOTE | 2023-09-03 15:02 | PN.CDI ---
CDI
- -
CDI:
Physician Documentation Request
Admit Date: 08/31/23 06:35
Dear Doctor Aaron,
09/01 patient had cardiac arrest.
Bad Credit Collector progress note states 'Elevated troponin likely due to demand ischemia with type II NV'
Cardiology progress note states 'Nonischemic myocardial injury related to pneumonia and respiratory failure
08/31/23 09/02/23 09/02/23
04:45 06:37 13:05
Troponin I < 0.012 0.166 H* 0.570 H* D
09/02/23 09/03/23
16:39 03:53
Troponin I 0.563 H* 0.306 H*
In an attempt to clarify potentially conflicting documentation, please clarify the diagnosis associated with elevated troponin:
Nonischemic myocardial injury
Type II NV
Other
Use of terms such as suspected, likely, concern for, or probable (associated with a specific diagnosis that is being evaluated, monitored, or treated as if it exists) are acceptable and can be coded in the inpatient setting, when documented at the
time of discharge.
Thank you,
Carly Ansari RN, BSN
CDI Specialist
tiger text
Please use your independent medical judgment in providing your response.
--- NOTE | 2023-09-03 15:06 | PTCARENOTE ---
Guidewire removed from DHT, placement verified via x-ray.
--- NOTE | 2023-09-03 16:17 | PTCARENOTE ---
Continues to desaturate to 85% with repositioning, requiring 100% FiO2. Breath sounds diminished with the left worse than the right, scattered expiratory wheeze.
[2023-09-03] MEDS: LIPITOR 40 MG PO (17:29)
[2023-09-03] MEDS: LUMIGAN 0.01% 1 DROP BOTH EYES (17:29)
[2023-09-03] MEDS: PACERONE 200 MG TUBE (17:29)
[2023-09-03 17:32] LABS: Glucose - Point of Care 143 mg/dl (70-99)
--- NOTE | 2023-09-03 20:00 | PTCARENOTE ---
Patient received in bed, intubated, bilateral wrist restraints maintained. 100% AV paced on monitor, afebrile, blood pressure as documented. Weak but palpable pulses, + anasarca noted. #8 ETT at 24 cm at the right lip, tolerating A/C 20 TV 400
FIO2 40% Peep 5, lungs coarse bilaterally, suctioned for thick blankenship. DHT in right nare. Abdomen obese with hypoactive bowel sounds. Temp sensing schilling draining maikol urine. Foam dressing on sacrum and heels intact. #22 g in left forearm flushed
and patent.
[2023-09-03] MEDS: LANTUS 0.149999999999999994 UNITS SC (21:34)
[2023-09-03 22:07] LABS: Glucose - Point of Care 129 mg/dl (70-99)
[2023-09-04] VITALS (26 sets, daily range): BP systolic 64–166; BP diastolic 45–78; PULSE 2–63; BMI 28.6
--- NOTE | 2023-09-04 | PTCARENOTE ---
Assumed care of patient. AV paced. VSS. Remains intubated - #8 ETT@24cm center. Ventilator AC 20/400/40%/5. Assessment per nursing flowsheet. Schilling remains intact, schilling care done, mouth care provided. Turn and repositioned.
[2023-09-04] MEDS: HEPARIN 5000 UNITS SC ×4 (00:14→23:43)
[2023-09-04] MEDS: NOVOLOG FLEXPEN-MODERATE RESISTANCE 1 UNITS SC (00:14)
[2023-09-04] MEDS: PACERONE 200 MG TUBE ×3 (00:15→16:15)
[2023-09-04 00:25] LABS: Glucose - Point of Care 170 mg/dl (70-99)
[2023-09-04] MEDS: SUBLIMAZE 25 MCG IV (03:58)
--- NOTE | 2023-09-04 04:00 | PTCARENOTE ---
AVPaced. VSS. Pt restless, kicking legs over bed, trying to pull at ETT. Fentanyl administered PRN. Assessment unchanged otherwise.
[2023-09-04 05:55] LABS: Blood Urea Nitrogen 55 mg/dl (7-17); Calcium 9.1 mg/dl (8.4-10.2); Carbon Dioxide 30 mmol/L (22-30); Chloride 108 mmol/L (98-107); Estimated Creatinine Clearance 33 ml/min; Glucose 104 mg/dl (70-99); Magnesium 2.1 mg/dl (1.6-2.3); Potassium 3.9 mmol/L (3.5-5.1); Sodium 140 mmol/L (135-145); eGFR 44.08
[2023-09-04 06:03] LABS: Glucose - Point of Care 119 mg/dl (70-99)
[2023-09-04] MEDS: NOVOLOG FLEXPEN-MODERATE RESISTANCE SC ×3 (06:04→18:20)
[2023-09-04] MEDS: SYNTHROID 50 MCG PO (06:35)
[2023-09-04] MEDS: DUONEB 3 ML INH ×3 (07:30→19:49)
--- NOTE | 2023-09-04 07:30 | PTCARENOTE ---
Received pt intubated with bilateral soft wrist restraints intact. She opened her eyes to verbal and gentle tactile stimulation. She is able to follow commands and nod her head to simple questions. Doppler pedal pulses, weak radial pulses. She
remains 100% AV paced. Minimal maikol UOP via temperature sensing Ball. +2 anasarca with +4 pitting edema of her FA and hands. #8ETT secured 24cm center. Tolerating AC 20/400/.40/+5. Breath sounds anteriorly with very diminished breath sounds on her
left. Posteriorly, tubular breath sounds on the left with minimal expiratory wheeze on the right. Aspiration precautions maintained. Right NARE DHT with Osmolite 1.2 restarted @ 20ml/hr with 25ml/hr water flush. No residual. +BSX4. Gas present in
LLQ colostomy, burped the bag. Heels elevated on pillows with adhesive foam dressings, sacrum with Optifoam gentle dressing intact. She was informed of the plan of care regarding SBT and ventilator weaning. She nodded her head in understanding. Safe
environment maintained.
[2023-09-04] MEDS: LOW STRENGTH ASPIRIN 81 MG TUBE (07:48)
[2023-09-04] MEDS: ROBITUSSIN 200 MG TUBE ×3 (07:48→18:22)
[2023-09-04] MEDS: KEPPRA 500 MG IV ×2 (07:49→19:35)
[2023-09-04] MEDS: NSS (PRESERVATIVE FREE) 10 ML IV (07:49)
[2023-09-04] MEDS: PROTONIX IV 40 MG IV (07:49)
--- NOTE | 2023-09-04 08:20 | PTCARENOTE ---
Discussed the plan of care with Dr. Salazar. He is aware she has not received Lasix since admission and also aware of her BUN/CREAT today. Will administer Lasix and Coreg as ordered. Pt is also aware of the plan of care.
--- NOTE | 2023-09-04 08:20 | W.PN.CARDCBS ---
Today's Communication / Plan
-
Restart Lasix 40 mg IV now and then twice daily.
Continue amiodarone via tube
Restart Coreg 25 twice daily via tube
Continue antibiotics and wean from ventilator
The etiology of the VF remains unclear. Troponins are abnormal although I suspect this is a nonmyocardial injury troponin elevation
Could consider ischemic evaluation when extubated.
Impression / Plan
-
Primary English Language Learner Teacher: Dr. Yon Soliz
Assessment:
Presentation with SOB, cough
VDRF, Presumed Aspiration/HAP
UTI
Nonischemic myocardial injury related to pneumonia and respiratory failure
Acute on chronic systolic congestive heart failure
respiratory failure with intubation 09/02/23
Elevated LFTs, possible passive congestion
History of cardiomyopathy with partial recovery, EF 40 to 45% by echo in 2021
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
Paroxysmal atrial fibrillation
Chronic amiodarone therapy
Prior Xarelto use, stopped 06/2023 due to anemia/thrombocytopenia
Iron deficiency anemia
Hypertension
Hyperlipidemia
Diabetes
CKD
History of TIA/CVA
History of partial motor seizure disorder
History of retinal artery branch occlusion in 2014
History of rheumatic fever as a child
Peripheral polyneuropathy
History of uterine cancer in 1989 status post hysterectomy and bilateral salpingo-oophorectomy
History of rectal cancer status postchemotherapy with 5�FEU, leucovorin, oxaliplatin
Hypoalbuminemia
ECHO 07/2013: EF 20 to 25%, global hypokinesis, moderate MR, moderate TR, PAP 40 to 45 mmHg, small circumferential pericardial effusion
ECHO 09/2017: EF 40 to 45%, ICD wire in RV, moderately dilated bilateral atria, ICD wire in right atrial cavity, moderate MR, mild TX
ECHO 12/2019: EF 55%, mild concentric LVH, stage I diastolic dysfunction, MAC, moderate MR, aortic sclerosis, mild AR, mild TR, PAP 20 to 25 mmHg, trivial pericardial effusion
Echo 10/2021: EF 40 to 45%, mild concentric LVH, ICD wire seen in right ventricle, ICD/pacer wire in right atrial cavity, mild to moderate MR, mild , mild AR, mild TR, small pericardial effusion (unchanged compared to prior). in afib during study
Echo 08/31/23: EF 50-55%, mild LVH, mild-mod MR, mild-mod TR. PA 50-55mmHg.
Plan:
Review of ICD check revealed understands to ventricular fibrillation ultimately requiring shock. She remains in AV paced rhythm with no events on telemetry. Will continue increased dose of amiodarone 200 mg 3 times daily via tube. Restart Coreg
today 25 mg via tube twice daily.
Hemodynamics are improved, she remains in sinus rhythm. No significant rhythm disturbances on telemetry. Currently off pressors
Creatinine is improved and now stable at 1.2. Will give Lasix 40 mg IV now and likely resume twice daily dosing.
Hopefully can be weaned off of ventilator today. Continue vent care and antibiotics per checker loader
Current diagnosis would be acute HFpEF as EF has improved to 50-55%. Optimization of GDMT has been difficult in the past with a renal insufficiency. Probably not SGLT2 candidate related to UTIs
Overall improved
Discussed with nursing
CC time 34 min
Progress Note - English Language Learner Teacher
Subjective
Date of Service: September 04, 2023
On ventilator. Opens eyes and follows some commands.
Objective
Labs:
09/03/23 03:53
09/04/23 04:57
Labs
Hgb 10.2 g/dL (12.0-16.0) L 09/03/23 03:53
Hct 31.9 % (37.0-47.0) L 09/03/23 03:53
Plt Count 175 10^3/uL (130-400) 09/03/23 03:53
PT 15.3 Sec (11.4-14.6) H 09/02/23 06:37
INR 1.23 09/02/23 06:37
APTT 28.3 Sec (23.4-35.0) 09/02/23 06:37
Sodium 140 mmol/L (135-145) 09/04/23 04:57
Potassium 3.9 mmol/L (3.5-5.1) 09/04/23 04:57
BUN 55 mg/dl (7-17) H 09/04/23 04:57
Creatinine 1.2 mg/dL (0.6-1.0) H 09/04/23 04:57
Glucose 104 mg/dl (70-99) H 09/04/23 04:57
Troponins
09/02/23 09/02/23 09/02/23
06:37 13:05 16:39
Troponin I 0.166 H* 0.570 H* D 0.563 H*
09/03/23
03:53
Troponin I 0.306 H*
Vital Signs and I&O:
Vital Signs
Temp Pulse Resp BP Pulse Ox
98.3 F 65 20 154/65 96
09/04/23 07:45 09/04/23 07:48 09/04/23 07:34 09/04/23 07:48 09/04/23 07:45
Vital Signs
Temp Pulse Resp BP Pulse Ox
98.3 F 65 20 154/65 96
09/04/23 07:45 09/04/23 07:48 09/04/23 07:34 09/04/23 07:48 09/04/23 07:45
Intake & Output
09/02/23 09/03/23 09/04/23 09/05/23
06:59 06:59 06:59 06:59
Intake Total 547.7 / 569.7 647.0 / 647.0 0 / 0
Output Total 400 / 400 745 / 810 855 / 855
Balance -400 / -400 -197.3 / -240.3 -208.0 / -208.0 0 / 0
Physical Exam
Physical Exam
GEN: No distress, awake, opens eyes
HEENT: supple, anicteric, mmm, ET tube
LUNGS: scatt rhonchi
CV: Reg, S1/S2, 1/6 syst LSB, no gallop
ABD: soft, BS+, NT/ND
EXT: No edema
NEURO: moving extremities
SKIN: No rash
[2023-09-04] MEDS: LASIX 40 MG IV (09:00)
[2023-09-04] MEDS: COREG 25 MG TUBE ×2 (09:01→19:35)
--- NOTE | 2023-09-04 09:17 | PTCARENOTE ---
Discussion with pt's daughter rearding GOC and extubation. Per the family's wishes based on what they know their mother would want they would not want tointubate her again should she have respiratory distress. They would want to pivot care to
comfort and treat her symptoms of distress.
[2023-09-04 09:41] LABS: B.E. 7.3 mmol/L; HCO3 33.4 mmol/L (21-28); O2 Saturation % 94.7 % (94-98); PCO2 54 mmHg (32-35); PO2 76 mmHg (83-108)
--- NOTE | 2023-09-04 09:50 | PTCARENOTE ---
Pt's daughter at the bedside, she was updated on the plan. Supportive care given.
[2023-09-04] MEDS: SIMBRINZA 1%-0.2% OPHTH SUSP 1 DROP BOTH EYES ×2 (10:49→19:42)
--- NOTE | 2023-09-04 11:03 | PTCARENOTE ---
Desaturated to 87% with repositioning in the bed. Improved from yesterday.
--- NOTE | 2023-09-04 11:59 | PTCARENOTE ---
Pt called RN for repositioning. She is communicating with hand gestures. Unable to talk. She was placed in a chair position with a pillow behind her back. RR went from 24 to 20, oxygen saturation improved from 90% to 93%. Her son remains at the
bedside. WOB improved.
[2023-09-04 12:08] LABS: Glucose - Point of Care 129 mg/dl (70-99)
[2023-09-04] MEDS: MAXIPIME 1000 MG IV ×2 (12:38→19:33)
[2023-09-04] MEDS: STERILE WATER FOR INJECTION 10 ML IV ×2 (12:38→19:33)
--- NOTE | 2023-09-04 13:43 | W.PN.INTV ---
Today's Communication / Plan
Recommendations
Spontaneous breathing trial performed-extubated 09/04/2023
Will use BiPAP 15/5 as needed at bedtime
IV diuresis
Monitor electrolytes and renal function
Transition back to cefepime
Bedside speech evaluation, hopefully can advance diet
Eventual physical therapy and Occupational Therapy
Assessment
-
88-year-old female with history of CHF, s/p ICD, paroxysmal atrial fibrillation, hypertension, diabetes, presenting to ER for SOB and cough. Reportedly COVID tested negative at home. On arrival, satting 93% and placed on O2. CXR demonstrating
congestion with L sided pleural effusion, she is admitted for acute CHF exacerbation. She denies any prior known history of lung disease in the past. Lifelong nonsmoker. Denies family history of lung disease. She was last seen in our office in
[address] Bradshaw for SOB. Prior PFT in past (last obtained 2021) showing normal findings. Patient was being managed on the hospitalist service on the floor and being diuresed. Unfortunately on the evening of 08/31she developed
worsening hypoxia and suffered a PEA cardiac arrest. ROSC obtained, and patient was transferred to the ICU for further care. Textile Worker services consulted for additional management/recommendations; we were already following as a pulmonary
energy consultant.
Impression:
#In-hospital cardiac arrest likely due to hypoxia
Acute hypoxic respiratory failure s/p inubation and MV
#Aspiration pneumonia/HAP
#Septic shock due to pneumonia as above
#Lactic acidosis due to above
#Elevated troponin likely due to demand ischemia with type II GA
#Acute kidney injury
#Hyperglycemia
#Acute HFpEF exacerbation
#L pleural effusion
#Positive urinalysis with GNR
Conditions present CAR MOVER
CHF with ICD placement
Type 2 diabetes, suboptimal controlled.
CKD3
Abdominal aortic aneurysm.
Hemolytic anemia.
Hyponatremia.
Essential hypertension.
Paroxysmal AF
Rectal cancer resection.
Ostomy creation.
ICD placement.
Hysterectomy with Oophorectomy.
Cataract extraction.
Tonsillectomy.
Appendectomy.
Plan
Patient is critically ill on mechanical ventilation and vasopressors albeit she is following commands and in NAD
Minimal oxygen requirements.
Spontaneous breathing trial performed to my supervision for about an hour.
ABG at that time demonstrated adequate oxygenation on ventilation.
Hemodynamically stable, not tachycardic. With adequate cough effort.
Extubated under my supervision 09/14/2023.
-
Acute exacerbation HFrEF
ProBNP elevated
CXR- indicating pulmonary edema, L sided pleural effusion/ LE swelling noted
Cardiology continues to follow with patient.
Lasix to be restarted 09/04/2023
-
Small pleural effusion- does not seem amenable for sampling
Can US if enlarging to evaluate
TTE done on 08/31/2023 shows preserved LVEF at 50-55% with normal sized RV and mild�moderate TR with PH
Intubated 09/02/23 for worsening hypoxemia/resp distress s/p PEA arrest
Extubated as above 4 09/04/2023.
Continue nebulized bronchodilators with DuoNebs
Patient will be using BiPAP 15/5 as needed and at bedtime due to chronic hypercapnic respiratory failure.
-
Hold off on systemic steroids at this time given no known history of COPD or asthma and she is not currently wheezing
No known history of lung disease is noted -- she was last seen in our office in 2021/PFTs obtained then were normal
-
Patient has a positive urinalysis with culture showing GNR--> E. coli.
Sputum culture with Pseudomonas aeruginosa's and Staphylococcus aureus. Unclear significance.
At this point recommend transition back to cefepime to complete 7 days.
Continue to hold vancomycin.
Legion/strep Ag neg
-
NPO now
bedside speech evaluation if remains extubated.
Aspiration precautions
GI ppx
-
History of CKD
On diuresis continue to monitor closely.
I/Os, follow UO
Replete electrolytes as indicated
History of diabetes
Maintain BG goal 140�180 � continue Lantus qHS
Continue ISS moderate resistance, and can raise or reduce depending on her BG trend
-
History of rectal ca s/p resection/ostomy in place
DVT prophylaxis with HSQ .
-
Dr. Bradshaw updated family at [facility] 09/04/2023 .

Family Discussions
Yared 09/03/23- Updated son at bedside; agrees with DNR, he is not sure about reintubation if she were to decompensate post extubation. He knows that she would not want tracheotomy done and would not want to be in a facility. He will try to locate her
advanced directives. He will discuss with family regarding extubation trial and re-intubation decision making.
Randy - Updates were given to the patient's family and all questions were answered. I discussed the case with the patient's [id number], Shelli.
Diagnostic Data
CXR 08/31/23- 1. Mild pulmonary vascular congestion.
2. Small left pleural effusion is suspected. Consider PA and lateral views when possible.
3. Unchanged linear opacity within the right midlung zone, consistent with subsegmental atelectasis or scarring.
CXR 09-02-2023: Progressive right lung opacity, as described; congestive heart failure versus pneumonia. Slight increased hazy retrocardiac opacity; likely small left pleural effusion, though cannot exclude associated atelectasis or pneumonia.
Endotracheal tube tip 4.5 cm above the angelica.
ECHO 10/03/21- Moderately reduced systolic function. No regional wall motion abnormalities are seen. LV ejection fraction is 40-45% by visual estimation. Mild concentric left ventricular hypertrophy. Diastolic function indeterminate (AF). Indexed LA
volume is severely abnormal (> 48 mL/m2). ICD wire seen in right ventricle. ICD/pacemaker wire present in the right atrial cavity. Mild to moderate mitral regurgitation. Mild aortic stenosis.
Mild aortic regurgitation. Mild tricuspid regurgitation. Small pericardial effusion. Compared to prior echocardiogram from December 10, 2019, LV function was previously estimated at normal, 55%. Previously, there is aortic sclerosis without stenosis
and now there is mild aortic stenosis. She was in sinus rhythm at that time although now in atrial fibrillation. Small pericardial effusion is unchanged.
PFT 10/04/21: FEV1 1.83L, 102%; FVC 2.35L 97% ratio 78. TLC 4.25L 86%, DLCO 74%
-----
Critical Care time 31 mins -- The patient is admitted for acute critical illness for the treatment of vital organ failure and/or prevention of further life-threatening conditions. Total care includes time spent in review of history, physical exam,
medications, hemodynamic/ventilator parameters, laboratory data, imaging and discussion with house staff, pharmacy, respiratory therapy, warehouse puller, and nursing.
Subjective Dataa
Subjective Data
Date of Service:
Date of Service: September 04, 2023
Chief Complaint: Textile Worker Follow Up
Subjective:
Remains on mechanical ventilation, off sedation this morning.
Alert and following commands.
Review of Systems
General: Other (Unable to obtain due to intubation status)
Objective Data
Data Reviewed
Vital Signs / I&O / Oxygen:
Vital Signs
Temp Pulse Resp BP Pulse Ox
97.8 F 62 18 103/50 94
09/04/23 11:17 09/04/23 13:06 09/04/23 13:06 09/04/23 12:00 09/04/23 13:06
Intake and Output
09/03/23 09/04/23 09/05/23
06:59 06:59 06:59
Intake Total 547.7 / 569.7 647.0 / 647.0 230 / 230
Output Total 745 / 810 855 / 855 415 / 415
Balance -197.3 / -240.3 -208.0 / -208.0 -185 / -185
SaO2 [CPAP/PSV] 94
SaO2 [A/C] 96
SaO2 94
Nasal Cannula flow liters per 5
minute
Physical Exam
General: Respiratory Distress (Negative), Comfortable and Other (critically ill)
HEENT: Normocephalic, Anicteric, Other (ETT in place) and Other (Dry mucous membranes)
Cardiovascular: S1-S2, Irregular Rhythm (rate controlled) and Peripheral Edema (+2 lower extremity pitting edema)
Respiratory: Wheeze (negative), Crackles (negative), Rhonchi (scattered bilaterally), Non-Labored Respirations, ET Tube and Other
GI: Soft, Non Distended, Non Tender, Normal Bowel Sounds and Other (Left lower quadrant colostomy which is prolapsed and no active bleeding seen)
Neurology: Awake, Alert, Oriented (to self, can nod head yes/no), No Motor Deficits and Other (able to communicate/awake on vent)
Skin: Warm, Dry and Cyanosis (negative)
Labs/Micro/Reports
Lab Data
09/03/23 03:53
09/04/23 04:57
Laboratory Results
09/04/23
09:33
pH 7.40
pCO2 54 H
pO2 76 L
HCO3 33.4 H
O2 Delivery Level
Microbiology
09/02/23 13:05 Blood/Venous Blood Culture - Preliminary
No Growth in 48 hours- Final report to follow
09/02/23 15:54 Endotracheal Respiratory Culture - Preliminary
Pseudomonas aeruginosa
Staphylococcus aureus
09/02/23 15:54 Endotracheal Gram Stain - Preliminary
09/02/23 13:05 Nose Nasal Screen MRSA (PCR) - Final
MRSA not detected - performed by PCR methodology.
09/02/23 13:05 Urine Legionella Urinary Antigen - Final
Negative for Legionella pneumophila Serogroup 1 antigen.
A negative result does not rule out the possiblity of
Legionella infection due to other serogroups or species of
Legionella. Clinical correlation is recommended.
09/02/23 13:05 Urine Streptococcus pneumoniae Antigen (M - Final
Negative for Streptococcus pneumoniae antigen.
A negative result does not exclude infection with
Streptococcus pneumoniae. Clinical correlation is
recommended.
08/31/23 19:23 Urine Urine Culture - Final
Escherichia coli
--- NOTE | 2023-09-04 14:27 | PTCARENOTE ---
Dr. Bradshaw informed of pt profound weakness and inability to speak post extubation. Will have pt placed on Bipap as ordered. Repositioned pt. PM care provided. She has no voice quality, barely a whisper. She was encouraged to cough. She did make
herself cough at that time, however it was extremely weak. Cough was moist and sounded thick, unable to expectorate any phlegm. For repositioning I had increased her MFNC to 15 liters from 7 liters. Her oxygen saturation only dipped to 88%.
Posteriorly her breath sounds are dim and coarse T/O. Once she was upright in the bed I tapered the oxygen back down to 7 liters MFNC and notified RPT to place pt on BiPap. TF on hold while BiPap mask on.
--- NOTE | 2023-09-04 14:42 | CM ---
CM following re: discharge planning.
Discussed in rounds, reviewed pt's chart, met with pt and pt's son at bedside. Pt extubated today to 7L midlow, increased her MFNC to 15 liters from 7 liters, continue supportive care.
PT and OT and ST will evaluate the pt when clinically appropriate to determine a level of care at discharge.
D/C plan: uncertain at this time and will depend on pt's progress.
CM will follow with discharge plan updates as hospitalization progresses
[2023-09-04] MEDS: LIPITOR 40 MG TUBE (16:15)
--- NOTE | 2023-09-04 16:33 | W.PN.HOSP.TC ---
Addendum entered and electronically signed by Ulises Walker MD 09/05/23 12:00:
Correction :
Non ischemic myocardial injury
Addendum entered and electronically signed by Ulises Walker MD 09/05/23 07:38:
Adjust diagnosis:
Nonischemic cardiomyopathy
Acute on chronic Diastolic Heat failure exacerbation
Original Note:
Today's Communication/Plan
-
ST eval
adjust abx to cefepime
monitor lasix response
Assessment / Plan
Assessment / Plan
1. Cardiac arrest likely PEA secondary to hypoxemia
Acute hypoxic respiratory failure/ VDRF
-Ongoing vent weaning/sedation vacation/spontaneous breathing trial
-Chest x-ray showing possible aspiration pneumonia versus heart failure
-Currently on empiric antibiotic vancomycin and cefepime
-Blood culture negative. Legionella/strep urinary antigen negative.
-Respiratory culture growing Pseudomonas, antibiotic to be adjusted to IV cefepime
-Patient extubated today, currently on nasal cannula
2. Acute on chronic systolic heart failure exacerbation
History of cardiomyopathy status post ICD placement
-Patient resumed back on IV Lasix,
-ICD was interrogated
-Strict I's and O's
-Daily weights
-Monitor creatinine closely.
3. Acute bronchitis likely viral
-Pro-Jaylen negative. Antibiotic was not started on admission
4. Prolapsed ostomy
-Surgery evaluated and was able to be reduced at bedside
-Continue monitoring for output/ileus
5. E. coli UTI
-on cefepime for simultaneous pulm issues.
6. Chronic transaminitis
- likely secondary to vascular congestion secondary to heart failure vs amiodarone related vs other
7. Paroxysmal atrial fibrillation
-Continue with carvedilol and amiodarone
-Taken off anticoagulation due to severe anemia and GI bleed
8. History of iron deficiency anemia
- Trend hemoglobin. Transfuse for hemoglobin less than 7.
9 . CKD stage IIIa
-Trend creatinine with diuretics
Primary hypertension
History of seizures - Continue Keppra 500 mg twice daily
Hypothyroidism - Continue Synthroid.
DVT ppx-hep sc
Total Critical Care Time 36 minutes. I was immediately available to the patient and staff. I personally examined, reviewed labs, diagnostic images/reports, interpretations, treatment plans, discussed patient care with other providers and family
or caregivers (if patient is unable to make decisions), entered orders as appropriate and documented the medical record.
Anticipated Discharge: 24 - 48 hours
Subjective/Interval History
-
Date of Service: September 04, 2023
Patient extubated and on nasal cannula
Not voicing any complaints
Objective Data
-
Labs:
Laboratory Results
09/04/23 09/04/23
04:57 09:33
HCO3 33.4 H
Sodium 140
Potassium 3.9
Chloride 108 H
Carbon Dioxide 30
BUN 55 H
Creatinine 1.2 H
Glucose 104 H
Calcium 9.1
Vital Signs:
Vital Signs
Temp Pulse Resp BP Pulse Ox
97.8 F 63 18 120/54 92
09/04/23 11:17 09/04/23 16:15 09/04/23 14:00 09/04/23 16:15 09/04/23 14:00
I&O
09/03/23 09/04/23 09/05/23
06:59 06:59 06:59
Intake Total 547.7 / 569.7 647.0 / 647.0 310 / 310
Output Total 745 / 810 855 / 855 630 / 630
Balance -197.3 / -240.3 -208.0 / -208.0 -320 / -320
Review of Systems
-
Unable to obtain full review of systems at this time due to: Acuity
Physical Exam
-
General: No Apparent Distress
HEENT: Oxygen
Respiratory: Rhonchi
Cardiac: Regular Rhythm and S1/S2; Negative Murmur, Rub or Gallop
GI: Soft, Nontender, Nondistended and Ostomy
Musculoskeletal: No Edema
Skin: Warm; Negative Rash
Neuro: Awake (off sedation)
[2023-09-04 17:33] LABS: Glucose - Point of Care 114 mg/dl (70-99)
[2023-09-04] MEDS: LUMIGAN 0.01% 1 DROP BOTH EYES (18:23)
[2023-09-04] MEDS: ROBITUSSIN TUBE (21:55)
[2023-09-04 22:00] LABS: Glucose - Point of Care 117 mg/dl (70-99)
--- NOTE | 2023-09-04 22:00 | PTCARENOTE ---
pt pulled off bipap & pulled out dobhoff, desat to 75%, after bipap applied sat inc 96%, lantus held per order due to npo
--- NOTE | 2023-09-04 22:23 | PTCARENOTE ---
Rec'd pt w/ son and dtr at bedside, soft voice, writing notes, oriented to person, place, rivera to command, flat affect, av paced, bp stable, distal pulses via doppler, + edema, skin warm/dry, o2 via bipap 15/5 w/ 7 liters, sat 93, lungs decr, few exp
wheezes, + bowel sounds, colostomy intact, dobhoff clamped for meds, no n/v, schilling draining makiol urine
[2023-09-04 23:52] LABS: Glucose - Point of Care 105 mg/dl (70-99)
[2023-09-05] VITALS (26 sets, daily range): BP systolic 98–131; BP diastolic 44–87; PULSE 2–63; BMI 28.3
--- NOTE | 2023-09-05 | PTCARENOTE ---
sys reviewed, comf on bipap, sat 99, CHG bath done, linens changed
[2023-09-05] MEDS: NOVOLOG FLEXPEN-MODERATE RESISTANCE SC ×3 (00:04→18:17)
[2023-09-05] MEDS: PACERONE TUBE (00:04)
--- NOTE | 2023-09-05 01:53 | PTCARENOTE ---
sat 85, bipap incr to 15/5 w/ 10 liters, sat 92%
[2023-09-05] MEDS: STERILE WATER FOR INJECTION 10 ML IV ×3 (03:38→19:32)
[2023-09-05] MEDS: MAXIPIME 1000 MG IV ×3 (03:38→19:31)
[2023-09-05 03:47] LABS: Hematocrit 29.4 % (37.0-47.0); Hemoglobin 9.5 g/dL (12.0-16.0); Mean Corp Hgb Conc. 32.3 g/dL (33.0-37.0); Mean Corpuscular Hgb 27.4 pg (27.0-31.0); Mean Corpuscular Volume 84.7 fL (81.0-99.0); Red Blood Cell Count 3.47 10^6/uL (4.20-5.40); White Blood Cell Count 13.5 10^3/uL (4.8-10.8)
--- NOTE | 2023-09-05 03:49 | PTCARENOTE ---
sys reviewed, changes noted, sat 97
[2023-09-05 04:12] LABS: Mean Platelet Volume 10.8 fL (7.4-10.4); Platelet Count 130 10^3/uL (130-400)
[2023-09-05 04:15] LABS: Blood Urea Nitrogen 59 mg/dl (7-17); Calcium 8.7 mg/dl (8.4-10.2); Carbon Dioxide 29 mmol/L (22-30); Chloride 110 mmol/L (98-107); Estimated Creatinine Clearance 33 ml/min; Glucose 108 mg/dl (70-99); Potassium 3.6 mmol/L (3.5-5.1); Sodium 141 mmol/L (135-145); Triglycerides 80 mg/dl (10-149); eGFR 44.08
[2023-09-05 05:38] LABS: Glucose - Point of Care 119 mg/dl (70-99)
[2023-09-05 06:07] LABS: Glucose - Point of Care 108 mg/dl (70-99)
[2023-09-05] MEDS: DUONEB 3 ML INH ×3 (07:10→19:39)
[2023-09-05] MEDS: HEPARIN 5000 UNITS SC ×3 (08:22→23:22)
[2023-09-05] MEDS: KEPPRA 500 MG IV (08:22)
[2023-09-05] MEDS: FLUSH (NSS) 1 FLUSH IV ×4 (08:23→16:30)
[2023-09-05] MEDS: SIMBRINZA 1%-0.2% OPHTH SUSP 1 DROP BOTH EYES ×2 (08:23→21:20)
[2023-09-05] MEDS: SYNTHROID 50 MCG TUBE (08:50)
--- NOTE | 2023-09-05 09:00 | PTCARENOTE ---
Rec'd pt a 0800 awake resting in bed. Overall seems oriented in that she follows basic commands and nods head appropriately as well as mouthes words. Voice is a whisper- does not really make a sound when she tries to talk. Does have a + moist
non-prod cough. VELAZQUEZ Weakly. Tongue protrudes midline but noted to have purplish ecchymosis on both sides of her tongue. Skin is pale wm and dry. Temp is 97.2 via thermistor schilling. Foam dressing intact on sacrum. Respirs are shallow and tachypnic .
Does get DESAI. Pt during the night on Bipap but changed over at 0800 to 15L midflow with sats currently at 94%. BS are overall decreased and sl coarse. Does get easily winded and admits to chest soreness with coughing but denies pain otherwise.
Monitor AV paced. VS as documented. + pulses. DP pulses with the doppler. +2 generalized anasarca. Abd is round and soft with + sl hypoactive BS. LLQ colostomy -stoma is red. Soft brown stool present. Thermistor schilling intact for yellow urine. Capped
ints intact L wrist and R hand. Sites wnl. Repositioned. Speech therapy in to see pt and recommended few sips of water and meds crushed in applesauce for now. Call schaefer in reach. Plan of care reviewed with pt.
--- NOTE | 2023-09-05 09:16 | PTOTSP ---
Speech Therapy Swallowing Assessment
No gross indication of aspiration with ice chips and single sips of thin liquid. However, the patient is considered at elevated risk for aspiration given symptoms of compromised airway protection including bovine cough, and aphonia. These risk
factors are likely related to post extubation inflammation.
Recommend
1. Maintain NPO
2. Allow ice chips and single sips of liquid with supervision per [facility] protocol
3. Allow meds crushed in applesauce.
4. Oral care with suction toothbrush at least 4x/daily
5. ST will reassess tomorrow 09/05. Determine VSE need/timing
[2023-09-05] MEDS: PACERONE 200 MG TUBE ×3 (09:39→23:22)
[2023-09-05] MEDS: LOW STRENGTH ASPIRIN 81 MG TUBE (09:39)
[2023-09-05] MEDS: ROBITUSSIN 200 MG TUBE ×4 (09:39→21:20)
[2023-09-05] MEDS: COREG 25 MG TUBE ×2 (09:39→19:31)
[2023-09-05] MEDS: LASIX 40 MG IV ×2 (10:01→16:29)
--- NOTE | 2023-09-05 10:03 | W.PN.CARDCBS ---
Today's Communication / Plan
-
Extubated and slowly improving. Continue 40 mg Lasix IV twice daily. Creatinine at 1.2
Continue amiodarone 200mg po tid and Coreg.
Will repeat limited transthoracic echo to reassess EF after VF arrest.
She has had no further episodes of ventricular arrhythmias
Could consider ischemic evaluation if she completely recovers.
Continue antibiotics
Impression / Plan
-
Primary Opener: Dr. Yon Soliz
Assessment:
Presentation with SOB, cough
VDRF, Presumed Aspiration/HAP
UTI
Nonischemic myocardial injury related to pneumonia and respiratory failure
Acute on chronic systolic congestive heart failure
respiratory failure with intubation 09/02/23
Elevated LFTs, possible passive congestion
History of cardiomyopathy with partial recovery, EF 40 to 45% by echo in 2021
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
Paroxysmal atrial fibrillation
Chronic amiodarone therapy
Prior Xarelto use, stopped 06/2023 due to anemia/thrombocytopenia
Iron deficiency anemia
Hypertension
Hyperlipidemia
Diabetes
CKD
History of TIA/CVA
History of partial motor seizure disorder
History of retinal artery branch occlusion in 2014
History of rheumatic fever as a child
Peripheral polyneuropathy
History of uterine cancer in 1989 status post hysterectomy and bilateral salpingo-oophorectomy
History of rectal cancer status postchemotherapy with 5�FEU, leucovorin, oxaliplatin
Hypoalbuminemia
ECHO 07/2013: EF 20 to 25%, global hypokinesis, moderate MR, moderate TR, PAP 40 to 45 mmHg, small circumferential pericardial effusion
ECHO 09/2017: EF 40 to 45%, ICD wire in RV, moderately dilated bilateral atria, ICD wire in right atrial cavity, moderate MR, mild LA
ECHO 12/2019: EF 55%, mild concentric LVH, stage I diastolic dysfunction, MAC, moderate MR, aortic sclerosis, mild AR, mild TR, PAP 20 to 25 mmHg, trivial pericardial effusion
Echo 10/2021: EF 40 to 45%, mild concentric LVH, ICD wire seen in right ventricle, ICD/pacer wire in right atrial cavity, mild to moderate MR, mild , mild AR, mild TR, small pericardial effusion (unchanged compared to prior). in afib during study
Echo 08/31/23: EF 50-55%, mild LVH, mild-mod MR, mild-mod TR. PA 50-55mmHg.
Plan:
Review of ICD check revealed undersensing of ventricular fibrillation ultimately requiring shock. She remains in AV paced rhythm with no events on telemetry. Cont amiodarone 200 mg 3 times daily via tube. She was previously on amiodarone 2 mg
once daily. Continue Coreg
Hemodynamics are improved, she remains in sinus rhythm. No significant rhythm disturbances on telemetry. Currently off pressors
Creatinine is improved and now stable at 1.2. cont IV Lasix 40mg bid
Current diagnosis would be acute HFpEF as EF has improved to 50-55%. Optimization of GDMT has been difficult in the past with a renal insufficiency. Probably not SGLT2 candidate related to UTIs
continue to wean oxygen.
With ventricular fibrillation, ideally we should consider an ischemic evaluation. I would wait and assess how while she recovers from this event first. Will repeat Echo today.
CC time 32 min
Progress Note - Opener
Subjective
Date of Service: September 05, 2023
Awake and feeling somewhat better. Having some left arm pains. Now extubated.
Objective
Labs:
09/05/23 03:36
09/05/23 03:36
Labs
Hgb 9.5 g/dL (12.0-16.0) L 09/05/23 03:36
Hct 29.4 % (37.0-47.0) L 09/05/23 03:36
Plt Count 130 10^3/uL (130-400) D 09/05/23 03:36
PT 15.3 Sec (11.4-14.6) H 09/02/23 06:37
INR 1.23 09/02/23 06:37
APTT 28.3 Sec (23.4-35.0) 09/02/23 06:37
Sodium 141 mmol/L (135-145) 09/05/23 03:36
Potassium 3.6 mmol/L (3.5-5.1) 09/05/23 03:36
BUN 59 mg/dl (7-17) H 09/05/23 03:36
Creatinine 1.2 mg/dL (0.6-1.0) H 09/05/23 03:36
Glucose 108 mg/dl (70-99) H 09/05/23 03:36
Troponins
09/02/23 09/02/23 09/03/23
13:05 16:39 03:53
Troponin I 0.570 H* D 0.563 H* 0.306 H*
Vital Signs and I&O:
Vital Signs
Temp Pulse Resp BP Pulse Ox
97.1 F 63 20 123/47 98
09/05/23 07:38 09/05/23 10:01 09/05/23 07:15 09/05/23 10:01 09/05/23 07:15
Vital Signs
Temp Pulse Resp BP Pulse Ox
97.1 F 63 20 123/47 98
09/05/23 07:38 09/05/23 10:01 09/05/23 07:15 09/05/23 10:01 09/05/23 07:15
Intake & Output
09/03/23 09/04/23 09/05/23 09/06/23
06:59 06:59 06:59 06:59
Intake Total 547.7 / 569.7 647.0 / 647.0 340 / 340
Output Total 745 / 810 855 / 855 1125 / 1125
Balance -197.3 / -240.3 -208.0 / -208.0 -785 / -785
Physical Exam
Physical Exam
GEN: No distress, awake
HEENT: supple, anicteric, mmm
LUNGS: scatt rhonchi
CV: Reg, S1/S2, 1/6 syst LSB, no gallop
ABD: soft, BS+, NT/ND
EXT: No edema
NEURO: Gross non-focal
SKIN: No rash
--- NOTE | 2023-09-05 10:10 | PTCARENOTE ---
Tried pt on 12 L midflow but pt c/o feeling too Short of breath even though sats were 93%- Placed pt back on 15L midlflow. Sats up to 97% and pt more comfortable. Repositioned. Lasix 40 mg IV given as ordered. Dr. Salazar in to see pt. Pts daughter
at bedside and updated.
--- NOTE | 2023-09-05 10:58 | PN.CDI ---
CDI
- -
CDI:
Physician Documentation Request
Admit Date: 08/31/23 06:35
Dear Doctor Aaron,
Patient admitted for heart failure, acute bronchitis likely viral, E. coli uti, per hospitalist
[employer] progress note stats 'Aspiration pneumonia/HAP. Septic shock due to pneumonia...'
Patient presented with a temp of 95.9 down to 94.0
heart rates 60s-80s
Presenting respiratory rates between 20-33
WBC 11.5 trending up to a high of 19.0
09/01 Lactic acid 3.1
patient was on Levophed from 09/01-09/02
Please clarify which of the following most accurately describes the status of the patient's infection:
Sepsis
- Systemic manifestations of infection, with 2 or more SIRS criteria which include:
- Fever >100.4 degrees F or hypothermia < 96.8 degrees F
- Leukocytosis - WBC > 12,000 or leukopenia - WBC < 4,000 or > 10% bands
- Tachycardia > 90 beats per minute
- Tachypnea - RR > 20 breaths per minute or PaCO2 , 32mmHg
Source: Merck Manual 2013
Severe Sepsis
- Sepsis with associated acute organ dysfunction, such as renal or respiratory failure
- Documentation should indicate the association between the sepsis and the organ dysfunction
Septic Shock
- Severe sepsis associated with circulatory failure, evidenced by hypotension and hypoperfusion
Localized Infection Only, Without Systemic Illness
Other
Use of terms such as suspected, likely, concern for, or probable (associated with a specific diagnosis that is being evaluated, monitored, or treated as if it exists) are acceptable and can be coded in the inpatient setting, when documented at the
time of discharge.
Thank you,
Carly Ansari RN, BSN
CDI Specialist
tiger text
Please use your independent medical judgment in providing your response.
[2023-09-05] MEDS: TYLENOL ORAL SOLUTION 650 MG TUBE (11:06)
--- NOTE | 2023-09-05 11:10 | PTCARENOTE ---
Medicated with Tylenol 650 mg po for c/o chest soreness with coughing. Dozed after. Overall speech remains at a whisper and unable to make sounds when talking. Coughing a moist mostly non-prod cough. Suctioned oropharyngeally for small amt of
yellowish secretions. Remains on 15L midflow with sats of 94%.VS as documented. Turned and repositioned. Family at the bedside. Will continue to monitor
--- NOTE | 2023-09-05 11:37 | W.PN.HOSP.TC ---
Today's Communication/Plan
-
transfer to IMU
maintain on IV lasix
poor cough reflex - high risk for pulm complication
continue abx
Assessment / Plan
Assessment / Plan
1. Cardiac arrest likely PEA secondary to hypoxemia
Acute hypoxic respiratory failure/ VDRF
-Ongoing vent weaning/sedation vacation/spontaneous breathing trial
-Chest x-ray showing possible aspiration pneumonia versus heart failure
-Currently on empiric antibiotic vancomycin and cefepime
-Blood culture negative. Legionella/strep urinary antigen negative.
-Respiratory culture growing Pseudomonas, antibiotic to be adjusted to IV cefepime
-s/p extubation on 09/03
-on midflow 15L/min
2. Acute on chronic systolic heart failure exacerbation
History of cardiomyopathy status post ICD placement
-Patient resumed back on IV Lasix,
-ICD was interrogated
-Strict I's and O's
-Monitor creatinine closely.
3. Pseudomonas pneumonia
-procal neg
-resp culture growing pseudomonas
-maintain on cefepime with tenuous pulm status
4. Prolapsed ostomy
-Surgery evaluated and was able to be reduced at bedside
-Continue monitoring for output/ileus
5. E. coli UTI
-on cefepime for simultaneous pulm issues.
6. Chronic transaminitis
- likely secondary to vascular congestion secondary to heart failure vs amiodarone related vs other
7. Paroxysmal atrial fibrillation
-Continue with carvedilol and amiodarone
-Taken off anticoagulation due to severe anemia and GI bleed
8. History of iron deficiency anemia
- Trend hemoglobin. Transfuse for hemoglobin less than 7.
9 . CKD stage IIIa
-Trend creatinine with diuretics
Primary hypertension
History of seizures - Continue Keppra 500 mg twice daily
Hypothyroidism - Continue Synthroid.
DVT ppx-hep sc
Anticipated Discharge: > 48 hours
Subjective/Interval History
-
Date of Service: September 05, 2023
Resting comfortably in bed
on 15L o2 through midflow
remains dysphonic
not on pressors
mild hypothermia in night
no acute issues reported
Objective Data
-
Labs:
Laboratory Results
09/05/23 09/05/23
00:37 03:36
WBC 13.5 H
Hgb 9.5 L
Hct 29.4 L
Plt Count 130 D
Sodium Cancelled 141
Potassium Cancelled 3.6
Chloride Cancelled 110 H
Carbon Dioxide Cancelled 29
BUN Cancelled 59 H
Creatinine Cancelled 1.2 H
Glucose Cancelled 108 H
Calcium Cancelled 8.7
Vital Signs:
Vital Signs
Temp Pulse Resp BP Pulse Ox
97.2 F 60 32 107/77 93
09/05/23 11:19 09/05/23 11:00 09/05/23 11:00 09/05/23 11:00 09/05/23 11:00
I&O
09/04/23 09/05/23 09/06/23
06:59 06:59 06:59
Intake Total 647.0 / 647.0 340 / 340 100 / 100
Output Total 855 / 855 1125 / 1125 295 / 295
Balance -208.0 / -208.0 -785 / -785 -195 / -195
Review of Systems
-
Unable to obtain full review of systems at this time due to: Patient Non-verbal
Physical Exam
-
General: No Apparent Distress
HEENT: Oxygen (15 L midflow)
Respiratory: Rhonchi
Cardiac: Regular Rhythm and S1/S2; Negative Murmur, Rub or Gallop
GI: Soft, Nontender, Nondistended and Ostomy
Musculoskeletal: No Edema
Skin: Warm; Negative Rash
Neuro: Awake, Alert, Oriented and No Motor Deficits
[2023-09-05 11:53] LABS: Glucose - Point of Care 158 mg/dl (70-99)
--- NOTE | 2023-09-05 12:25 | W.PN.INTV ---
Today's Communication / Plan
Recommendations
Continue cefepime
May continue BiPAP at night and as needed
Continue nebulizer therapy
Continue IV diuretics
N.p.o. for now, reassess tomorrow
To get repeat echocardiogram today
Eventual ischemic evaluation
Okay with IMU level, pulmonary will follow
Assessment
-
88-year-old female with history of CHF, s/p ICD, paroxysmal atrial fibrillation, hypertension, diabetes, presenting to ER for SOB and cough. Reportedly COVID tested negative at home. On arrival, satting 93% and placed on O2. CXR demonstrating
congestion with L sided pleural effusion, she is admitted for acute CHF exacerbation. She denies any prior known history of lung disease in the past. Lifelong nonsmoker. Denies family history of lung disease. She was last seen in our office in
[address] Bradshaw for SOB. Prior PFT in past (last obtained 2021) showing normal findings. Patient was being managed on the hospitalist service on the floor and being diuresed. Unfortunately on the evening of 08/31she developed
worsening hypoxia and suffered a PEA cardiac arrest. ROSC obtained, and patient was transferred to the ICU for further care. Ditcher services consulted for additional management/recommendations; we were already following as a pulmonary
information resource consultant.
Impression:
#In-hospital cardiac arrest likely due to hypoxia
Acute hypoxic respiratory failure s/p inubation and MV
#Aspiration pneumonia/HAP
#Septic shock due to pneumonia as above
#Lactic acidosis due to above
#Elevated troponin likely due to demand ischemia with type II AR
#Acute kidney injury
#Hyperglycemia
#Acute HFpEF exacerbation
#L pleural effusion
#Positive urinalysis with GNR
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
CHF with ICD placement
Type 2 diabetes, suboptimal controlled.
CKD3
Abdominal aortic aneurysm.
Hemolytic anemia.
Hyponatremia.
Essential hypertension.
Paroxysmal AF
Rectal cancer resection.
Ostomy creation.
ICD placement.
Hysterectomy with Oophorectomy.
Cataract extraction.
Tonsillectomy.
Appendectomy.
Plan
Intubated 09/02/23 for worsening hypoxemia/resp distress s/p PEA arrest
Extubated as above 09/04/2023
-
Continue nebulized bronchodilators with DuoNebs for secretion clearance.
Patient will be using BiPAP 15/5 as needed and at bedtime due to chronic hypercapnic respiratory failure.
Tolerated nocturnal BiPAP.
This morning on nasal cannula oxygen.
Coughing on demand
Was not able to pass swallowing evaluation. Patient pulled her NG tube out.Will remain n.p.o. with aspiration precautions.
-
Acute exacerbation HFrEF
ProBNP elevated no further ventricular arrhythmias noted.
CXR- indicating pulmonary edema, L sided pleural effusion/ LE swelling noted
Cardiology continues to follow with patient.
Continue diuresis.
Follow renal function and electrolytes.
Echocardiogram to be repeated per cardiology.
Eventual ischemic evaluation.
-
Small pleural effusion- does not seem amenable for sampling
TTE done on 08/31/2023 shows preserved LVEF at 50-55% with normal sized RV and mild�moderate TR with PH
-
Hold off on systemic steroids at this time given no known history of COPD or asthma and she is not currently wheezing
No known history of lung disease is noted -- she was last seen in our office in 2021/PFTs obtained then were normal
-
UTI/positive a sputum culture-? Tracheobronchitis versus pneumonia
Patient has a positive urinalysis with culture showing GNR--> E. coli.
Sputum culture with Pseudomonas aeruginosa's and Staphylococcus aureus. Unclear significance.
Continue cefepime for now.
Continue to hold vancomycin.
Legion/strep Ag neg
-
NPO now.
Did not pass speech evaluation.
May swallow pills
Patient pulled out the Dobbhoff tube. Hold on nutrition for today
Aspiration precautions
GI ppx
-
History of CKD
On diuresis continue to monitor closely.
I/Os, follow UO
Replete electrolytes as indicated
-
History of diabetes
Maintain BG goal 140�180 � continue Lantus qHS
Continue ISS moderate resistance, and can raise or reduce depending on her BG trend
-
History of rectal ca s/p resection/ostomy in place
DVT prophylaxis with HSQ .
-
Dr. Bradshaw updated family at the bedsid 09/04/2023 and 09/05/2023 .
-
Patient has been transferred to intermediate care unit.
Critical care team will sign off.
Pulmonary will follow

Family Discussions
Yared 09/03/23- Updated son at bedside; agrees with DNR, he is not sure about reintubation if she were to decompensate post extubation. He knows that she would not want tracheotomy done and would not want to be in a facility. He will try to locate her
advanced directives. He will discuss with family regarding extubation trial and re-intubation decision making.
Randy - Updates were given to the patient's family and all questions were answered. I discussed the case with the patient's [id number], Shelli.
Diagnostic Data
CXR 08/31/23- 1. Mild pulmonary vascular congestion.
2. Small left pleural effusion is suspected. Consider PA and lateral views when possible.
3. Unchanged linear opacity within the right midlung zone, consistent with subsegmental atelectasis or scarring.
CXR 09-02-2023: Progressive right lung opacity, as described; congestive heart failure versus pneumonia. Slight increased hazy retrocardiac opacity; likely small left pleural effusion, though cannot exclude associated atelectasis or pneumonia.
Endotracheal tube tip 4.5 cm above the angelica.
ECHO 10/03/21- Moderately reduced systolic function. No regional wall motion abnormalities are seen. LV ejection fraction is 40-45% by visual estimation. Mild concentric left ventricular hypertrophy. Diastolic function indeterminate (AF). Indexed LA
volume is severely abnormal (> 48 mL/m2). ICD wire seen in right ventricle. ICD/pacemaker wire present in the right atrial cavity. Mild to moderate mitral regurgitation. Mild aortic stenosis.
Mild aortic regurgitation. Mild tricuspid regurgitation. Small pericardial effusion. Compared to prior echocardiogram from December 10, 2019, LV function was previously estimated at normal, 55%. Previously, there is aortic sclerosis without stenosis
and now there is mild aortic stenosis. She was in sinus rhythm at that time although now in atrial fibrillation. Small pericardial effusion is unchanged.
PFT 10/04/21: FEV1 1.83L, 102%; FVC 2.35L 97% ratio 78. TLC 4.25L 86%, DLCO 74%
-----
Subjective Dataa
Subjective Data
Date of Service:
Date of Service: September 05, 2023
Chief Complaint: Ditcher Follow Up
Subjective:
Patient offers no significant complaints
Tolerated BiPAP overnight
Occasional coughing
Was not able to pass swallowing evaluation.
Review of Systems
Cardiopulmonary: Dyspnea (None at rest) and Chest Pain (n)
GI: Abdominal Pain (n) and Nausea (n)
Objective Data
Data Reviewed
Vital Signs / I&O / Oxygen:
Vital Signs
Temp Pulse Resp BP Pulse Ox
97.2 F 60 32 107/77 93
09/05/23 11:19 09/05/23 11:00 09/05/23 11:00 09/05/23 11:00 09/05/23 11:00
Intake and Output
09/04/23 09/05/23 09/06/23
06:59 06:59 06:59
Intake Total 647.0 / 647.0 340 / 340 100 / 100
Output Total 855 / 855 1125 / 1125 295 / 295
Balance -208.0 / -208.0 -785 / -785 -195 / -195
SaO2 [CPAP/PSV] 94
SaO2 [A/C] 96
SaO2 93
Nasal Cannula flow liters per 5
minute
Physical Exam
General: Respiratory Distress (Negative), Comfortable and Other (critically ill)
HEENT: Normocephalic, Anicteric, Other (ETT in place) and Other (Dry mucous membranes)
Cardiovascular: S1-S2, Irregular Rhythm (rate controlled) and Peripheral Edema (+2 lower extremity pitting edema)
Respiratory: Wheeze (negative), Crackles (Not significant.), Rhonchi (scattered bilaterally), Non-Labored Respirations and Other
GI: Soft, Non Distended, Non Tender, Normal Bowel Sounds and Other (Left lower quadrant colostomy which is prolapsed and no active bleeding seen)
Neurology: Awake, Alert, No Motor Deficits and Other (Follow simple commands)
Skin: Warm, Dry and Cyanosis (negative)
Labs/Micro/Reports
Lab Data
09/05/23 03:36
09/05/23 03:36
Microbiology
09/02/23 15:54 Endotracheal Respiratory Culture - Final
Pseudomonas aeruginosa
S aureus-Methicillin Sensitive
09/02/23 15:54 Endotracheal Gram Stain - Final
09/02/23 13:05 Blood/Venous Blood Culture - Preliminary
No Growth in 48 hours- Final report to follow
09/02/23 13:05 Nose Nasal Screen MRSA (PCR) - Final
MRSA not detected - performed by PCR methodology.
09/02/23 13:05 Urine Legionella Urinary Antigen - Final
Negative for Legionella pneumophila Serogroup 1 antigen.
A negative result does not rule out the possiblity of
Legionella infection due to other serogroups or species of
Legionella. Clinical correlation is recommended.
09/02/23 13:05 Urine Streptococcus pneumoniae Antigen (M - Final
Negative for Streptococcus pneumoniae antigen.
A negative result does not exclude infection with
Streptococcus pneumoniae. Clinical correlation is
recommended.
08/31/23 19:23 Urine Urine Culture - Final
Escherichia coli
[2023-09-05] MEDS: NOVOLOG FLEXPEN-MODERATE RESISTANCE 1 UNITS SC ×2 (12:54→23:47)
--- NOTE | 2023-09-05 13:00 | PTCARENOTE ---
Dozed after Tylenol. Awakens easily to stimuli. Still with no voice- voice remains a whisper. Denies pain. Cough remains moist and non-productive. VS as documented. Turned and repositioned. Skin and mouth care given. Taking few ice chips. Call schaefer
in reach. Son remains at the bedside.
--- NOTE | 2023-09-05 15:44 | CM ---
CM following re: discharge planning.
Discussed in rounds, reviewed pt's chart, pt's son at bedside. Pt continue to require 15 liters MFNC, continue supportive care.
PT and OT and ST will evaluate the pt when clinically appropriate to determine a level of care at discharge.
D/C plan: uncertain at this time and will depend on pt's progress.
CM will follow with discharge plan updates as hospitalization progresses
--- NOTE | 2023-09-05 16:00 | PTCARENOTE ---
O2 decreased to 13L midflow with sats of 95%. Assessment unchanged. Repositioned. Taking few ice chips. Moist cough unchanged. Call schaefer in reach
[2023-09-05 17:37] LABS: Glucose - Point of Care 142 mg/dl (70-99)
--- NOTE | 2023-09-05 18:00 | PTCARENOTE ---
Family at the bedside. No changes in assessment
[2023-09-05] MEDS: LUMIGAN 0.01% 1 DROP BOTH EYES (18:18)
[2023-09-05] MEDS: LIPITOR 40 MG TUBE (18:18)
[2023-09-05] MEDS: KEPPRA 500 MG TUBE (19:31)
--- NOTE | 2023-09-05 20:00 | PTCARENOTE ---
Patient received in bed, AAOx2, forgetful to time. Encouraged to speak, nods heads. Anxious at times, pulling off BiPap. 100% AV paced on monitor, afebrile, blood pressure as documented. +2 anasarca noted. Distal pulses present by doppler.
Lungs diminished, crackles scattered in left, pulse ox 96% on 13L midflow, Bipap encouraged. Abdomen obese, colostomy noted. Temp sensing schilling draining maikol urine. Foam dressing on sacrum and bilateral heels intact. #22 g in right hand and #22 g
in left wrist flushed and patent. Call schaefer within reach.
[2023-09-05] MEDS: OFIRMEV 100 IV (21:20)
[2023-09-05] MEDS: MELATONIN 5 MG PO (21:21)
[2023-09-05] MEDS: LANTUS 0.149999999999999994 UNITS SC (22:00)
--- NOTE | 2023-09-05 23:39 | PTCARENOTE ---
patient pulling off BiPap, pulled out IV, CHG bath given, linens changed. Turned and repositioned
[2023-09-05 23:50] LABS: Glucose - Point of Care 182 mg/dl (70-99)
[2023-09-06] VITALS (32 sets, daily range): BP systolic 75–118; BP diastolic 31–87; PULSE 60–65; O2SAT 94–95; BMI 28.3
--- NOTE | 2023-09-06 03:00 | PTCARENOTE ---
Patient transferred to IMU
[2023-09-06] MEDS: STERILE WATER FOR INJECTION 10 ML IV ×3 (04:09→21:18)
[2023-09-06] MEDS: MAXIPIME 1000 MG IV ×3 (04:09→21:18)
--- NOTE | 2023-09-06 05:37 | PTCARENOTE ---
Rec'd pt from ICU. Pt AAOx2, on 12L midflow cannula, resting comfortably in bed. VS as documented. Call schaefer within reach. Bed alarm in place for patient safety.
--- NOTE | 2023-09-06 05:43 | W.PN.UPDATE ---
Update Note
Progress Note Update
nsg requested to change medications via tube to PO as ST report suggested to give meds crushed in apples sauce, therefore will change the tube orders to via PO crushed in apple sauce.
[2023-09-06] MEDS: SYNTHROID 50 MCG PO (06:22)
--- NOTE | 2023-09-06 06:37 | PTCARENOTE ---
Pt tolerated morning synthroid crushed in applesauce without cough/difficulty.
[2023-09-06 06:52] LABS: Glucose - Point of Care 103 mg/dl (70-99)
[2023-09-06] MEDS: NOVOLOG FLEXPEN-MODERATE RESISTANCE SC ×3 (07:23→18:05)
[2023-09-06] MEDS: DUONEB 3 ML INH ×4 (07:25→19:15)
[2023-09-06] MEDS: COREG 25 MG PO ×2 (09:05→21:18)
[2023-09-06] MEDS: LASIX 40 MG IV ×2 (09:05→18:23)
[2023-09-06] MEDS: ROBITUSSIN 200 MG TUBE ×4 (09:06→21:20)
[2023-09-06] MEDS: LOW STRENGTH ASPIRIN 81 MG PO (09:06)
[2023-09-06] MEDS: HEPARIN SC ×2 (09:06→09:21)
[2023-09-06] MEDS: PACERONE 200 MG PO ×2 (09:06→17:18)
[2023-09-06] MEDS: KEPPRA 500 MG PO ×2 (09:06→21:18)
[2023-09-06] MEDS: SIMBRINZA 1%-0.2% OPHTH SUSP 1 DROP BOTH EYES ×2 (09:07→21:19)
--- NOTE | 2023-09-06 09:35 | W.PN.CARDCBS ---
Today's Communication / Plan
-
Cont amio and BB
Monitor on tele
Impression / Plan
-
Primary Coffee Weigher: Dr. Yon Soliz
Assessment:
Presentation with SOB, cough
VDRF, Presumed Aspiration/HAP
UTI
Nonischemic myocardial injury related to pneumonia and respiratory failure
Acute on chronic systolic congestive heart failure
respiratory failure with intubation 09/02/23
Elevated LFTs, possible passive congestion
History of cardiomyopathy with partial recovery, EF 40 to 45% by echo in 2021
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
Paroxysmal atrial fibrillation
Chronic amiodarone therapy
Prior Xarelto use, stopped 06/2023 due to anemia/thrombocytopenia
Iron deficiency anemia
Hypertension
Hyperlipidemia
Diabetes
CKD
History of TIA/CVA
History of partial motor seizure disorder
History of retinal artery branch occlusion in 2014
History of rheumatic fever as a child
Peripheral polyneuropathy
History of uterine cancer in 1989 status post hysterectomy and bilateral salpingo-oophorectomy
History of rectal cancer status postchemotherapy with 5�FEU, leucovorin, oxaliplatin
Hypoalbuminemia
ECHO 07/2013: EF 20 to 25%, global hypokinesis, moderate MR, moderate TR, PAP 40 to 45 mmHg, small circumferential pericardial effusion
ECHO 09/2017: EF 40 to 45%, ICD wire in RV, moderately dilated bilateral atria, ICD wire in right atrial cavity, moderate MR, mild CA
ECHO 12/2019: EF 55%, mild concentric LVH, stage I diastolic dysfunction, MAC, moderate MR, aortic sclerosis, mild AR, mild TR, PAP 20 to 25 mmHg, trivial pericardial effusion
Echo 10/2021: EF 40 to 45%, mild concentric LVH, ICD wire seen in right ventricle, ICD/pacer wire in right atrial cavity, mild to moderate MR, mild , mild AR, mild TR, small pericardial effusion (unchanged compared to prior). in afib during study
Echo 08/31/23: EF 50-55%, mild LVH, mild-mod MR, mild-mod TR. PA 50-55mmHg.
Plan:
Review of ICD check revealed undersensing of ventricular fibrillation ultimately requiring shock. She remains in AV paced rhythm with no events on telemetry. No significant rhythm disturbances on telemetry.
Cont amiodarone 200 mg 3 times daily - was previously on amiodarone 200 mg once daily. Continue Coreg
Creatinine is improved and now stable at 1.2. Cont IV Lasix 40mg BID.
Current diagnosis would be acute HFpEF as EF has improved to 50-55%. Optimization of GDMT has been difficult in the past with a renal insufficiency. Probably not SGLT2 candidate related to UTIs
Cont to wean oxygen.
With ventricular fibrillation, could consider ischemic evaluation, but would wait and assess how she recovers.
Progress Note - Coffee Weigher
Subjective
Date of Service: September 06, 2023
NAOE. Remains in IMU on high flow NC. Minimally interactive, not offering cardiac complaints.
Objective
Labs:
Labs
Hgb 9.5 g/dL (12.0-16.0) L 09/05/23 03:36
Hct 29.4 % (37.0-47.0) L 09/05/23 03:36
Plt Count 130 10^3/uL (130-400) D 09/05/23 03:36
PT 15.3 Sec (11.4-14.6) H 09/02/23 06:37
INR 1.23 09/02/23 06:37
APTT 28.3 Sec (23.4-35.0) 09/02/23 06:37
Sodium 141 mmol/L (135-145) 09/05/23 03:36
Potassium 3.6 mmol/L (3.5-5.1) 09/05/23 03:36
BUN 59 mg/dl (7-17) H 09/05/23 03:36
Creatinine 1.2 mg/dL (0.6-1.0) H 09/05/23 03:36
Glucose 108 mg/dl (70-99) H 09/05/23 03:36
Vital Signs and I&O:
Vital Signs
Temp Pulse Resp BP Pulse Ox
97.4 F 60 18 109/52 99
09/06/23 07:40 09/06/23 09:05 09/06/23 07:28 09/06/23 09:05 09/06/23 07:40
Vital Signs
Temp Pulse Resp BP Pulse Ox
97.4 F 60 18 109/52 99
09/06/23 07:40 09/06/23 09:05 09/06/23 07:28 09/06/23 09:05 09/06/23 07:40
Intake & Output
09/04/23 09/05/23 09/06/23 09/07/23
06:59 06:59 06:59 06:59
Intake Total 647.0 / 647.0 340 / 340 250 / 250
Output Total 855 / 855 1125 / 1125 965 / 965
Balance -208.0 / -208.0 -785 / -785 -715 / -715
Physical Exam
Physical Exam
Gen: NAD, AA
HEENT: NC/AT, sclera anicteric
Neck: No JVD
CV: RRR, NL s1/s2, 2/6 CAROL at the base
Lungs: Accessory resp muscle use on 8L NC
Abd: S/ND
Ext: No LE edema
Skin: Warm, dry
Neuro: Non-focal
--- NOTE | 2023-09-06 09:56 | W.PN.PUL.V3 ---
Today's Communication / Plan
-
Supplemental oxygen
BiPAP as needed
Continue antibiotics
Add Decadron
Intensify nebulizers
Mucus clearing devices
Added vest therapy
Assessment
-
88-year-old female with history of CHF, s/p ICD, paroxysmal atrial fibrillation, hypertension, diabetes, presenting to ER for SOB and cough. Reportedly COVID tested negative at home. On arrival, satting 93% and placed on O2. CXR demonstrating
congestion with L sided pleural effusion, she is admitted for acute CHF exacerbation. She denies any prior known history of lung disease in the past. Lifelong nonsmoker. Denies family history of lung disease. She was last seen in our office in
[address] Bradshaw for SOB. Prior PFT in past (last obtained 2021) showing normal findings. Patient was being managed on the hospitalist service on the floor and being diuresed. Unfortunately on the evening of 08/31she developed
worsening hypoxia and suffered a PEA cardiac arrest. ROSC obtained, and patient was transferred to the ICU for further care. Compensation Director services consulted for additional management/recommendations; we were already following as a pulmonary
cosmetic consultant.
Impression:
#In-hospital cardiac arrest likely due to hypoxia
#Acute hypoxic respiratory failure s/p intubation and MV
Intubated 09/02/2023
Extubated 09/04/23
#Aspiration pneumonia/HAP
#Septic shock due to pneumonia as above
#Lactic acidosis due to above
#Elevated troponin likely due to demand ischemia with type II [place]
#Acute kidney injury
#Hyperglycemia
#Acute HFpEF exacerbation
#L pleural effusion
#Positive urinalysis with GNR
Conditions present TAILERCPA:
CHF with ICD placement
Type 2 diabetes, suboptimal controlled.
CKD3
Abdominal aortic aneurysm.
Hemolytic anemia.
Hyponatremia.
Essential hypertension.
Paroxysmal AF
Rectal cancer resection.
Ostomy creation.
ICD placement.
Hysterectomy with Oophorectomy.
Cataract extraction.
Tonsillectomy.
Appendectomy.
Plan
Respiratory status remains somewhat tenuous
Supplemental oxygen as needed
High flow oxygen if needed
BiPAP as needed-did not need last night
Aspiration precautions
Speech therapy evaluation ongoing
Incentive spirometry
Flutter
Add vest therapy
Deep suction as needed
Mucolytic's-on Robitussin
Nebulizers-increase DuoNebs to 4 times daily
Add Decadron-significant wheezing
Cultures reviewed
Continue antibiotics
Follow chest x-ray
Monitor leukocytosis
Cardiology following
Echocardiogram summarized below
Amiodarone 200 mg every 8 hours continues
Diuresis as tolerated
Monitor renal function, electrolytes, intake/output, lower extremity edema and weight
Replace electrolytes as needed
Monitor blood sugar
Insulin supplementation as needed
DVT prophylaxis-on heparin
GI prophylaxis discontinued now off ventilator
Nutrition
Early mobilization/physical and Occupational Therapy
Recommend outpatient pulm evaluation-she was last seen in our office in 2021/PFTs obtained then were normal

Family Discussions
Yared 09/03/23- Updated son at bedside; agrees with DNR, he is not sure about reintubation if she were to decompensate post extubation. He knows that she would not want tracheotomy done and would not want to be in a facility. He will try to locate her
advanced directives. He will discuss with family regarding extubation trial and re-intubation decision making.
Padilla - Updates were given to the patient's family and all questions were answered. I discussed the case with the patient's [id number], Shelli.
Diagnostic Data
CXR 08/31/23- 1. Mild pulmonary vascular congestion.
2. Small left pleural effusion is suspected. Consider PA and lateral views when possible.
3. Unchanged linear opacity within the right midlung zone, consistent with subsegmental atelectasis or scarring.
CXR 09-02-2023: Progressive right lung opacity, as described; congestive heart failure versus pneumonia. Slight increased hazy retrocardiac opacity; likely small left pleural effusion, though cannot exclude associated atelectasis or pneumonia.
Endotracheal tube tip 4.5 cm above the angelica.
ECHO 10/03/21- Moderately reduced systolic function. No regional wall motion abnormalities are seen. LV ejection fraction is 40-45% by visual estimation. Mild concentric left ventricular hypertrophy. Diastolic function indeterminate (AF). Indexed LA
volume is severely abnormal (> 48 mL/m2). ICD wire seen in right ventricle. ICD/pacemaker wire present in the right atrial cavity. Mild to moderate mitral regurgitation. Mild aortic stenosis.
Mild aortic regurgitation. Mild tricuspid regurgitation. Small pericardial effusion. Compared to prior echocardiogram from December 10, 2019, LV function was previously estimated at normal, 55%. Previously, there is aortic sclerosis without stenosis
and now there is mild aortic stenosis. She was in sinus rhythm at that time although now in atrial fibrillation. Small pericardial effusion is unchanged.
TTE done on 08/31/2023 shows preserved LVEF at 50-55% with normal sized RV and mild�moderate TR with PH
PFT 10/04/21: FEV1 1.83L, 102%; FVC 2.35L 97% ratio 78. TLC 4.25L 86%, DLCO 74%
-----
Subjective Data
-
Date of Service:
Date of Service: September 06, 2023
Chief Complaint: Pulmonary Follow Up and Dyspnea Follow Up
Subjective:
Still with significant chest congestion, wheezing, nonproductive cough, dyspnea on exertion, no chest pain or abdominal pain
Review of Systems
General: Other (Per HPI)
Objective Data
Data Reviewed
Vital Signs / I&O:
Vital Signs
Temp Pulse Resp BP Pulse Ox
97.4 F 60 18 109/52 99
09/06/23 07:40 09/06/23 09:05 09/06/23 07:28 09/06/23 09:05 09/06/23 07:40
Intake and Output
09/05/23 09/06/23 09/07/23
06:59 06:59 06:59
Intake Total 340 / 340 250 / 250
Output Total 1125 / 1125 965 / 965
Balance -785 / -785 -715 / -715
SaO2: 99
Nasal Cannula flow liters per minute: 13
Physical Exam
General: Respiratory Distress (n) and Comfortable
HEENT: Normocephalic and Anicteric
Cardiovascular: Regular Rhythm and Peripheral Edema (Trace lower extremity edema)
Respiratory: Wheeze (Bilaterally), Crackles (Bilaterally), Rhonchi (Expiratory), Non-Labored Respirations, Accessory Resp Muscle Use (n) and Stridor (n)
GI: Soft, Non Distended and Non Tender
Neurology: Awake, Alert and No Motor Deficits
Skin: Warm, Good Color, Cyanosis (n), Jaundice (n) and Rash (n)
Labs/Micro/Reports
Microbiology
09/02/23 13:05 Blood/Venous Blood Culture - Preliminary
No Growth in 72 hours- Final report to follow
09/02/23 15:54 Endotracheal Respiratory Culture - Final
Pseudomonas aeruginosa
S aureus-Methicillin Sensitive
09/02/23 15:54 Endotracheal Gram Stain - Final
[2023-09-06 10:32] LABS: INR 1.43; PT 17.5 Sec (11.4-14.6)
[2023-09-06 10:51] LABS: Hemoglobin 8.5 g/dL (12.0-16.0); Mean Corp Hgb Conc. 30.4 g/dL (33.0-37.0); Mean Corpuscular Hgb 27.4 pg (27.0-31.0); Mean Corpuscular Volume 90.3 fL (81.0-99.0); Mean Platelet Volume 11.2 fL (7.4-10.4); Platelet Count 125 10^3/uL (130-400); Red Cell Dist. Width 17.7 % (11.5-14.5); White Blood Cell Count 15.7 10^3/uL (4.8-10.8)
[2023-09-06 10:55] LABS: Blood Urea Nitrogen 67 mg/dl (7-17); Calcium 8.3 mg/dl (8.4-10.2); Carbon Dioxide 32 mmol/L (22-30); Chloride 111 mmol/L (98-107); Estimated Creatinine Clearance 25 ml/min; Glucose 81 mg/dl (70-99); Potassium 3.2 mmol/L (3.5-5.1); Sodium 143 mmol/L (135-145); eGFR 31.21
[2023-09-06] MEDS: PULMICORT 0.5 MG INH ×2 (11:18→19:15)
--- NOTE | 2023-09-06 11:42 | PTCARENOTE ---
Assumed care of patient at beginning of this shift from previous RN. On initial assessment, patient's gown had small area of saturated blood noted and bleeding from previous heparin injection site. Dr Walker on unit and in to see patient; instructed
to hold heparin injection this morning. Dr Diaz also in to see patient and made aware.
Patient worked with PT/OT and OOB to chair. BP 88/47 when she was sitting on the side of the bed, per therapists, then 90/45 when first in chair. BP then noted to be 75/31, recycled to 85/51. Patient had reported feeling somewhat lightheaded per PT.
Patient assisted back to bed d/t BP and resp in to do vest therapy. BP 102/66 after vest therapy.
[2023-09-06 12:28] LABS: Glucose - Point of Care 90 mg/dl (70-99)
--- NOTE | 2023-09-06 13:10 | PTCARENOTE ---
Addendum entered by Loretta Kim RN 09/06/23 13:29:
Schilling catheter to be kept in one more day as per Dr Walker; order updated.
Addendum entered by Loretta Kim RN 09/06/23 13:28:
Speech therapist contacted via tiger text to see patient, as per Dr Walker. They will see and evaluate.
Original Note:
WOC in while this RN was bathing patient. DTI noted on sacrum. Patient has schilling catheter from ICU for I&O. [place] text sent to Dr Walker to see if schilling should remain as patient now has DTI; if so, order will need to be changed.
Sacral foam changed; heel foams changed. Vaseline applied to lip wound by WOC.
Dr Walker also notified via tiger text of patient's labs: K+ 3.2, Cr 1.6, PT 17.5, H&H 8.5/28.
Colostomy draining soft brown stool; colostomy bag intact. Family to bring in supplies per WOC.
Family remains at bedside.
--- NOTE | 2023-09-06 13:59 | WOUNDNOTE ---
WO RN note: Patient admitted with acute respiratory distress.
See H&P for complete history
PMH: In -hospital cardiac arrest likely due to hypoxia (Patient was intubated on 09/01 and extubated on 09/03) aspiration pneumonia with septic shock, type-2 hyperglycemia, JARED, CHF, HTN, rectal cancer with ostomy
Wound Location and type/assessment: Patient assessed with Loretta JONES. Per chart review, patient admitted with stage 1 of sacrum. Sacral wound has now progressed to DTI. Wound is closed, non-draining and patient denies pain or tenderness. Wound was
appropriately covered with silicone border foam. Patient also has new mucosal membrane pressure injury of right upper lip due to ET tube. Patient also admitted with stage 1 PI to heels. Moisture management maintained with schilling and colostomy.
Colostomy intact, no drainage noted. Son to bring in ostomy supplies (he thinks he took them home when patient was in ICU).
Appetite: Patient has been NPO. Plan is for another speech evaluation.
Pressure redistribution devices in place: Centrella Air, turning schedule, heels off-loaded with pillows under calves, air cushion in chair.
Plan: Spoke to patient, daughter, and son Matthew regarding sacral DTI. This abstract writer explained that sacral wound may worsen or open as patient has several co-morbidities such as prolonged NPO status, hypoxia with intubation, sepsis and
hyperglycemia. This abstract writer explained that all preventive measures will be implemented including continued off-loading of sacrum with turning schedule, air mattress and the addition bariatric air cushion when in bed. Dietary has seen patient and
another swallowing evaluation will be completed shortly. Sacral wound should also be kept covered with 5 layer sacral foam and WOC RN should be notified if wound worsens or opens. Local care to right upper lip with Vaseline BID. Continue protective
foam and off-loading of heels when in bed. Patient positioned on right side-lying position with assistance of Loretta JONES. Dr. Walker made aware of sacral DTI. ROBERT Burgos updated. Orders, care plan and discharge updated. Will continue to follow.
Recommend follow up at wound care center upon discharge.
--- NOTE | 2023-09-06 14:02 | PTCARENOTE ---
T 95.[address] Walker made aware; will be ordering Christi hugger. VAT RN putting in new IV now as previous site was leaking.
[2023-09-06] MEDS: DECADRON 4 MG IV ×2 (14:03→20:33)
--- NOTE | 2023-09-06 14:10 | PTOTSP ---
Speech Language Pathology
Pt seen for dysphagia tx. Son present at bedside. Low temps noted and abena hugger placed by RN. Pt remains with largely aphonic vocal quality, although minimal voicing noted at times. Trialed ice chips, puree, and thin liquids via cup/straw.
Consistent weak wet cough noted post thin liquids regardless of delivery method.
Pt is at a high risk for aspiration given recent intubation with largely aphonic vocal quality, consistent signs of aspiration with liquids, and significant overall deconditioning.
Recommend:
(1) NPO
(2) Oral care 4x/day with suctioning as needed
(3) Allow ice chips post oral care per Aspiration Risk Hydration Protocol (ARHP). Ice chips will provide moisture/comfort, keep swallowing muscles active, and aid in loosening secretions
(4) Meds in puree as tolerated
(5) VSE 4/5 if stable to leave floor
(6) PUBLIC HEALTH CLINICAL NURSE SPECIALIST to continue to follow
--- NOTE | 2023-09-06 14:20 | PTCARENOTE ---
Christi dill initiated.
--- NOTE | 2023-09-06 14:32 | W.PN.HOSP.TC ---
Today's Communication/Plan
-
continue abx
VSE tomorrow
cotninue lasix
Assessment / Plan
Assessment / Plan
1. Cardiac arrest likely PEA secondary to hypoxemia
Acute hypoxic respiratory failure/ VDRF
-Ongoing vent weaning/sedation vacation/spontaneous breathing trial
-Chest x-ray showing possible aspiration pneumonia versus heart failure
-Blood culture negative. Legionella/strep urinary antigen negative.
-Respiratory culture growing Pseudomonas, antibiotic to be adjusted to IV cefepime
-s/p extubation on 09/03
-midflow requirement down to 8L
2. Acute on chronic systolic heart failure exacerbation
History of cardiomyopathy status post ICD placement
-Patient resumed back on IV Lasix,
-ICD was interrogated
-Strict I's and O's
-Monitor creatinine closely.
3. Pseudomonas pneumonia
-procalcitonin neg
-resp culture growing pseudomonas
-maintain on cefepime with tenuous pulm status
3. Dysphagia
-continue to fail ST eval
-VSE tomorrow
-will need Dobhoff tube reinsertion if not improved .
4. Prolapsed ostomy
-Surgery evaluated and was able to be reduced at bedside
-Continue monitoring for output/ileus
5. E. coli UTI
-on cefepime for simultaneous pulm issues.
6. Chronic transaminitis
- likely secondary to vascular congestion secondary to heart failure vs amiodarone related vs other
7. Paroxysmal atrial fibrillation
-Continue with carvedilol and amiodarone
-Taken off anticoagulation due to severe anemia and GI bleed
8. History of iron deficiency anemia
- Trend hemoglobin. Transfuse for hemoglobin less than 7.
9 . CKD stage IIIa
-Trend creatinine with diuretics
Primary hypertension
History of seizures - Continue Keppra 500 mg twice daily
Hypothyroidism - Continue Synthroid.
DVT ppx-hep sc - excesive bleeding at abd site. hold heparin
Time spent : 53 mins
Anticipated Discharge: > 48 hours
Subjective/Interval History
-
Date of Service: September 06, 2023
continues to have poor cough reflex
o2 requirement coming down
continues to feel fatigued and tired
hypothermic episodic
Objective Data
-
Labs:
Laboratory Results
09/06/23
10:15
WBC 15.7 H
Hgb 8.5 L
Hct 28.0 L
Plt Count 125 L
PT 17.5 H
INR 1.43
Sodium 143
Potassium 3.2 L
Chloride 111 H
Carbon Dioxide 32 H
BUN 67 H
Creatinine 1.6 H
Glucose 81
Calcium 8.3 L
Vital Signs:
Vital Signs
Temp Pulse Resp BP Pulse Ox
95.6 F L 60 22 102/62 99
09/06/23 14:01 09/06/23 14:00 09/06/23 14:00 09/06/23 14:00 09/06/23 14:00
I&O
09/05/23 09/06/23 09/07/23
06:59 06:59 06:59
Intake Total 340 / 340 250 / 250
Output Total 1125 / 1125 965 / 965
Balance -785 / -785 -715 / -715
Review of Systems
-
Respiratory: Reports No Symptoms
Cardiac: Reports No Symptoms
Abdomen/GI: Reports No Symptoms
Physical Exam
-
General: No Apparent Distress
HEENT: Oxygen (8 L midflow)
Respiratory: Rhonchi
Cardiac: Regular Rhythm and S1/S2; Negative Murmur, Rub or Gallop
GI: Soft, Nontender, Nondistended and Ostomy
Musculoskeletal: No Edema
Skin: Warm; Negative Rash
Neuro: Awake, Alert, Oriented and No Motor Deficits
[2023-09-06] MEDS: KCL 260 MEQ IV (14:43)
[2023-09-06 15:54] LABS: Glucose - Point of Care 103 mg/dl (70-99)
--- NOTE | 2023-09-06 16:46 | PTCARENOTE ---
Christi dill off; T 97.5 [facility] [place].
[2023-09-06] MEDS: LUMIGAN 0.01% 1 DROP BOTH EYES (17:03)
[2023-09-06] MEDS: LIPITOR 40 MG PO (17:03)
--- NOTE | 2023-09-06 17:16 | W.PN.DEATH ---
Addendum entered and electronically signed by Yee Pereira MD 09/06/23 17:30:
Please Disregard This Document, Entered in Error, Wrong patient
Addendum entered and electronically signed by Yee Pereira MD 09/06/23 17:20:
Disregard Wrong Patient
Original Note:
Pronouncement of
-
Called to see patient to pronounce.
No spontaneous heart tones or respirations noted.
Patient not responsive to verbal stimuli.
Patient is pronounced .
Time of : 17:02
Date of : 09/06/23
Cause of : acute hypoxic respiratory failure 2/2 septic shock d/t Acute Heart Failure 2/2 atrial fibrillation RVR
Family Notified: Yes (family at bedside)
[2023-09-06] MEDS: LASIX IV (17:18)
--- NOTE | 2023-09-06 17:31 | W.PN.UPDATE ---
Addendum entered and electronically signed by Yee Pereira MD 09/06/23 19:14:
repeat lab results reviewed, leukocytosis remains persistent, H&H renal function stable, no lactic acidosis, troponin significantly improved from prior, hypokalemia resolved
patient improving though prognosis remains guarded, VSS
CXR official report noted small to moderate b/l pleural effusion, slight interval increase right pleural effusion
will defer to AM primary team consideration for IR eval thoracentesis
Addendum entered and electronically signed by Yee Pereira MD 09/06/23 18:24:
CXR imaging reviewed concern increased infiltrates compared to previous imaging
Blood pressure since improved spontaneously MAP >65 without need for pressor support
Discussed with nurse once IV lasix [address] of previously held afternoon lasix d/t low pressure
Addendum entered and electronically signed by Yee Pereira MD 09/06/23 17:50:
BIPAP was attempted prior to high flow however patient was not tolerating per nurse and respiratory therapist.
Original Note:
Update Note
Progress Note Update
Cross Coverage Update:
Called to Patient's bedside due to dyspnea hypoxia 80s on nasal cannula 8L hypotensive MAP<65.
Patient showed some improvement with suction and nebulizer therapy as provided by respiratory Therapist, bp also improved to MAP>65
Continued to report shortness of breath however, subsequently placed on high flow
Nurse discussed with Cardiology who recommended continuing with Amiodarone and holding Lasix at this time.
Lungs relatively clear on auscultation b/l albeit decreased breath sounds
-Checking CXR portable ordered urgent
-maintain high flow goal sat 92%
-levophed prn MAP goal 65 ordered just in case
discussed with nurse, respiratory therapist, patient, and patient's son Matthew hopkins.
--- NOTE | 2023-09-06 17:47 | RESPNOTE ---
patient c/o SOB, arrived to room with patient on midflow @10L, SpO2 low 90s, HR 60,BP 90s/60s, RR 30s, mild to moderate accessory muscle use. patient received last neb treatment at approx 1530, too soon for bronchodilator. attempt to placed patient
on bipap to ease WOB. patient agreeable to bipap but was unable to tolerate with coughing against pressure, additionally SPO2 not recovering on bipap. transitioned to 80% cool aerosol mask to aid in secretion clearance, pt tolerating mask with spO2
92-94%, RR still 30. Dr. Pereira at bedside to see patient. CXR ordered, HF at bedside. patient still with SOB patient attempted to suction mucus via yankhauer but minimal. discussed with patient and her family member the option of naso-tracheal
suction, but after reviewing procedure and possible side effects, patient declined politely to allow NT suction, which is understandable.
initiated HFNC, current settings 50LPM @60% FiO2 ,SpO2 93-95%, RR 20-30. patient states slightly more comfortable, less accessory muscle use. patient scheduled for additional neb treatments and mucus clearing therapies soon. await xray. care
discussed with ROBERT Burgos and Dr. Pereira.
--- NOTE | 2023-09-06 17:48 | PTCARENOTE ---
Patient c/o feeling short of breath several times despite repositioning and increasing O2; POx 88-92% on 10L midflow. Dr Walker notified via tiger text. Respiratory therapist up to see patient; attempted Bipap, but patient unable to tolerate.
BP 96/43 with MAP 57; patient due for amiodarone 200mg po and lasix 40mg IV. Reviewed with Dr Diaz who instructed to give amiodarone and hold IV lasix.
Dr Meadows then came to see patient as cross-covering hospitalist. Portable CXR ordered and patient placed on high flow by respiratory therapist. POx 92%.
Son remains at bedside.
[2023-09-06 17:51] LABS: Glucose - Point of Care 105 mg/dl (70-99)
--- NOTE | 2023-09-06 17:55 | PTCARENOTE ---
Levophed ordered to maintain MAP >65; however not started d/t BP 108/55. Dr Meadows in room and aware when BP cycled. Current BP 111/53, MAP 70.
--- NOTE | 2023-09-06 18:06 | PTCARENOTE ---
Labs ordered by Dr Pereira. Phlebotomy paged (there was no one listed on tiger text) as patient was stuck twice earlier today and unable to obtain labs. Phlebotomy did get labs earlier today. Await call back.
[2023-09-06 18:33] LABS: Hematocrit 28.5 % (37.0-47.0); Hemoglobin 8.8 g/dL (12.0-16.0); Mean Corp Hgb Conc. 30.9 g/dL (33.0-37.0); Mean Corpuscular Hgb 27.6 pg (27.0-31.0); Mean Corpuscular Volume 89.3 fL (81.0-99.0); Mean Platelet Volume 11.3 fL (7.4-10.4); Platelet Count 145 10^3/uL (130-400); Red Blood Cell Count 3.19 10^6/uL (4.20-5.40); Red Cell Dist. Width 17.6 % (11.5-14.5); White Blood Cell Count 19.3 10^3/uL (4.8-10.8)
[2023-09-06 18:48] LABS: Lactic Acid 0.8 mmol/L (0.7-2.0)
[2023-09-06 18:49] LABS: Blood Urea Nitrogen 74 mg/dl (7-17); Calcium 8.6 mg/dl (8.4-10.2); Carbon Dioxide 32 mmol/L (22-30); Chloride 107 mmol/L (98-107); Estimated Creatinine Clearance 24 ml/min; Glucose 93 mg/dl (70-99); Magnesium 2.2 mg/dl (1.6-2.3); Phosphorus 3.8 mg/dl (2.5-4.5); Potassium 4.1 mmol/L (3.5-5.1); Sodium 143 mmol/L (135-145); eGFR 29.02
[2023-09-06 18:59] LABS: Troponin I 0.065 ng/ml
--- NOTE | 2023-09-06 22:00 | PTCARENOTE ---
Received pt at change of shift. Pt sitting up in bed c/o difficulty breathing. Received duoneb from respiratory, high flow cannula intact, scheduled decadron administered, and PRN Robitussin administered (see MAR). Pt showing no signs of
improvement. Pulse ox 88% with respirations in the 40s. Respiratory increased high flow to 80% and 60L. Notified CONSTRUCTION EXECUTIVE; CONSTRUCTION EXECUTIVE at bedside discussing options with family. 2mg IV morphine 1x dose ordered (see MAR).
[2023-09-06] MEDS: MORPHINE SULFATE 2 MG IV (22:08)
[2023-09-07] VITALS (81 sets, daily range): BP systolic 70–125; BP diastolic 31–75; PULSE 2–62; BMI 27.7
[2023-09-07] MEDS: NOVOLOG FLEXPEN-MODERATE RESISTANCE SC (00:15)
[2023-09-07] MEDS: LANTUS SC (00:15)
[2023-09-07 00:20] LABS: Glucose - Point of Care 111 mg/dl (70-99)
[2023-09-07] MEDS: PACERONE 200 MG PO ×3 (01:30→15:22)
[2023-09-07] MEDS: MORPHINE SULFATE 2 MG IV ×2 (02:41→20:00)
--- NOTE | 2023-09-07 02:44 | PTCARENOTE ---
Pt getting increasingly restless. Pulse ox 79% with HFNC in place. Respirations increased to the 40s and labored; pt unable to take a deep breath. Pt unaware of her location and saying she needed to 'call the phone company to get the phone turned
back on'. Notified DIAMOND MERCHANT. 2mg Morphine 1x dose ordered and administered (see MAR). RT at bedside. Switched pt from HFNC to BiPAP. Pt tolerating BiPAP currently. Pulse ox 94%.
[2023-09-07] MEDS: STERILE WATER FOR INJECTION 10 ML IV ×2 (04:53→17:10)
[2023-09-07] MEDS: DECADRON 4 MG IV ×3 (04:53→20:06)
[2023-09-07] MEDS: MAXIPIME 1000 MG IV ×2 (04:53→17:09)
[2023-09-07 05:16] LABS: Hematocrit 27.2 % (37.0-47.0); Hemoglobin 8.6 g/dL (12.0-16.0); Mean Corp Hgb Conc. 31.6 g/dL (33.0-37.0); Mean Corpuscular Volume 88.6 fL (81.0-99.0); Mean Platelet Volume 10.7 fL (7.4-10.4); Platelet Count 127 10^3/uL (130-400); Red Blood Cell Count 3.07 10^6/uL (4.20-5.40); Red Cell Dist. Width 17.6 % (11.5-14.5); White Blood Cell Count 17.4 10^3/uL (4.8-10.8)
[2023-09-07 06:12] LABS: Blood Urea Nitrogen 84 mg/dl (7-17); Calcium 8.7 mg/dl (8.4-10.2); Carbon Dioxide 28 mmol/L (22-30); Chloride 108 mmol/L (98-107); Estimated Creatinine Clearance 19 ml/min; Glucose 126 mg/dl (70-99); Potassium 4.5 mmol/L (3.5-5.1); Sodium 144 mmol/L (135-145); eGFR 22.52
[2023-09-07] MEDS: NOVOLOG FLEXPEN-MODERATE RESISTANCE 1 UNITS SC (06:12)
[2023-09-07 06:22] LABS: Glucose - Point of Care 159 mg/dl (70-99)
[2023-09-07] MEDS: PULMICORT 0.5 MG INH ×2 (07:30→19:52)
[2023-09-07] MEDS: DUONEB 3 ML INH ×4 (07:30→19:52)
[2023-09-07] MEDS: COREG 25 MG PO (08:09)
[2023-09-07] MEDS: SYNTHROID 50 MCG PO (08:10)
[2023-09-07] MEDS: LASIX 40 MG IV (08:10)
[2023-09-07] MEDS: KEPPRA 500 MG PO (08:10)
[2023-09-07] MEDS: ROBITUSSIN 200 MG TUBE ×3 (08:10→17:10)
[2023-09-07] MEDS: LOW STRENGTH ASPIRIN 81 MG PO (08:10)
[2023-09-07] MEDS: SIMBRINZA 1%-0.2% OPHTH SUSP 1 DROP BOTH EYES ×2 (08:12→20:08)
--- NOTE | 2023-09-07 09:19 | W.PN.CARDCBS ---
Addendum entered and electronically signed by Aldo Pappas MD 09/07/23 11:06:
I saw and examined the patient.
The LUNCHROOM ATTENDANT or PA's note was reviewed and I agree with the note.
Comment: General: Well developed, well nourished in NAD.
Neck: Supple, no JVD, HJR, carotids +2 B/L, no bruits bilaterally.
Heart: Non displaced PMI, irregular, no murmurs, No S3, S4, no rubs.
Lungs: Scattered rhonchi
Extremities: No clubbing, cyanosis or edema bilaterally.
Neuro: Grossly nonfocal, awake, alert and oriented x3.
She remains severely hypoxemic. Lasix on hold for renal insufficiency. Remains on antibiotics for possible aspiration pneumonia. Continue amiodarone loading at 200 mg p.o. 3 times daily for rate control of A-fib started 09/05. Discussed with
daughter at bedside. Discussed with primary service. Hospice being considered.
Original Note:
Today's Communication / Plan
-
Hold Lasix
Consider reducing dose of carvedilol
Continue amiodarone
Impression / Plan
-
Primary Digital Advertising Analyst: Dr. Yon Soliz
Assessment:
Presented 08/31/2023 with SOB, cough
VDRF, Presumed Aspiration/HAP
UTI
Nonischemic myocardial injury related to pneumonia and respiratory failure
Acute on chronic heart failure with recovered ejection fraction on echo 08/31/2023
respiratory failure with intubation 09/02/23
Elevated LFTs, possible passive congestion
History of cardiomyopathy with partial recovery, EF 40 to 45% by echo in 2021
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
Paroxysmal atrial fibrillation
Chronic amiodarone therapy
Prior Xarelto use, stopped 06/2023 due to anemia/thrombocytopenia
Iron deficiency anemia
Hypertension
Hyperlipidemia
Diabetes
CKD
History of TIA/CVA
History of partial motor seizure disorder
History of retinal artery branch occlusion in 2014
History of rheumatic fever as a child
Peripheral polyneuropathy
History of uterine cancer in 1989 status post hysterectomy and bilateral salpingo-oophorectomy
History of rectal cancer status postchemotherapy with 5�FEU, leucovorin, oxaliplatin
Hypoalbuminemia
ECHO 07/2013: EF 20 to 25%, global hypokinesis, moderate MR, moderate TR, PAP 40 to 45 mmHg, small circumferential pericardial effusion
ECHO 09/2017: EF 40 to 45%, ICD wire in RV, moderately dilated bilateral atria, ICD wire in right atrial cavity, moderate MR, mild MO
ECHO 12/2019: EF 55%, mild concentric LVH, stage I diastolic dysfunction, MAC, moderate MR, aortic sclerosis, mild AR, mild TR, PAP 20 to 25 mmHg, trivial pericardial effusion
Echo 10/2021: EF 40 to 45%, mild concentric LVH, ICD wire seen in right ventricle, ICD/pacer wire in right atrial cavity, mild to moderate MR, mild , mild AR, mild TR, small pericardial effusion (unchanged compared to prior). in afib during study
Echo 08/31/23: EF 50-55%, mild LVH, mild-mod MR, mild-mod TR. PA 50-55mmHg.
Plan:
s/p cardiac arrest likely PEA secondary to hypoxemia with acute hypoxic respiratory failure/ VDRF. Now extubated and requiring high flow oxygen. Continue to wean as tolerated
Repeat chest x-ray 09/06/2023 shows bilateral pleural effusions with slight increase in right pleural effusion. Patchy airspace opacities within both lungs with differential of pneumonia versus pulmonary edema.
Continue IV antibiotics and decadron
Attempt to wean oxygen as tolerated
Review of ICD check revealed undersensing of ventricular fibrillation ultimately requiring shock. She remains in AV paced rhythm with no events on telemetry. No significant rhythm disturbances on telemetry.
Cont amiodarone 200 mg 3 times daily - was previously on amiodarone 200 mg once daily. Continue Coreg
Abnormal troponin, suspect nonischemic myocardial injury secondary to acute hypoxic respiratory failure/pneumonia. Troponin continues to trend downward
With ventricular fibrillation, could consider ischemic evaluation, but would wait and assess how she recovers.
Acute on chronic HFpEF with improved to 50-55%.
Weight is down 11 pounds since admission. Weight down 3 pounds overnight with current weight of 161 pounds.
Creatinine jumped from 1.7->2.1. Would hold Lasix
Continue Coreg. May need to lower dose if BP remains low, currently on Levophed
Optimization of GDMT has been difficult in the past with a renal insufficiency. Probably not SGLT2 candidate related to UTIs
Daughter Missy at bedside and updated
Progress Note - Digital Advertising Analyst
Subjective
Date of Service: September 07, 2023
Patient seen and examined. Patient's daughter Missy at bedside. Patient now extubated but still appears to be mildly short of breath on high flow oxygen.
Objective
Labs:
09/07/23 05:05
09/07/23 05:05
Labs
Hgb 8.6 g/dL (12.0-16.0) L 09/07/23 05:05
Hct 27.2 % (37.0-47.0) L 09/07/23 05:05
Plt Count 127 10^3/uL (130-400) L 09/07/23 05:05
PT 17.5 Sec (11.4-14.6) H 09/06/23 10:15
INR 1.43 09/06/23 10:15
APTT 28.3 Sec (23.4-35.0) 09/02/23 06:37
Sodium 144 mmol/L (135-145) 09/07/23 05:05
Potassium 4.5 mmol/L (3.5-5.1) 09/07/23 05:05
BUN 84 mg/dl (7-17) H 09/07/23 05:05
Creatinine 2.1 mg/dL (0.6-1.0) H 09/07/23 05:05
Glucose 126 mg/dl (70-99) H 09/07/23 05:05
Troponins
09/06/23
18:26
Troponin I 0.065 H*
Vital Signs and I&O:
Vital Signs
Temp Pulse Resp BP Pulse Ox
97.4 F 61 22 111/51 94
09/07/23 07:41 09/07/23 08:10 09/07/23 07:35 09/07/23 08:10 09/07/23 07:36
Vital Signs
Temp Pulse Resp BP Pulse Ox
97.4 F 61 22 111/51 94
09/07/23 07:41 09/07/23 08:10 09/07/23 07:35 09/07/23 08:10 09/07/23 07:36
Intake & Output
09/05/23 09/06/23 09/07/23 09/08/23
06:59 06:59 06:59 06:59
Intake Total 340 / 340 250 / 250 60 / 60
Output Total 1125 / 1125 965 / 965 650 / 650
Balance -785 / -785 -715 / -715 -590 / -590
Physical Exam
Physical Exam
GEN: No distress, awake, Ox3
HEENT: supple, anicteric, mmm
LUNGS: Rhonchorous breath sounds bilaterally CTA, on high flow oxygen with accessory muscle use
CV: Reg, S1/S2, 1/6 sys murmur
ABD: soft, BS+, NT/ND
EXT: trace edema bilaterally
NEURO: Gross non-focal
SKIN: No rash, warm, dry
--- NOTE | 2023-09-07 09:49 | W.PN.PUL.V3 ---
Today's Communication / Plan
-
Attempt to wean oxygen
No change in Decadron
Continue nebulizers and mucolytic's
Mucus clearing devices
Vest therapy initiated-reviewed with MANAGER INTERNET
Chest physiotherapy less effective
Diuresis as tolerated-currently on hold for renal insufficiency
Assessment
-
88-year-old female with history of CHF, s/p ICD, paroxysmal atrial fibrillation, hypertension, diabetes, presenting to ER for SOB and cough. Reportedly COVID tested negative at home. On arrival, satting 93% and placed on O2. CXR demonstrating
congestion with L sided pleural effusion, she is admitted for acute CHF exacerbation. She denies any prior known history of lung disease in the past. Lifelong nonsmoker. Denies family history of lung disease. She was last seen in our office in
[address] Bradshaw for SOB. Prior PFT in past (last obtained 2021) showing normal findings. Patient was being managed on the hospitalist service on the floor and being diuresed. Unfortunately on the evening of 08/31she developed
worsening hypoxia and suffered a PEA cardiac arrest. ROSC obtained, and patient was transferred to the ICU for further care. [employer] services consulted for additional management/recommendations; we were already following as a pulmonary
field technical support consultant.
Impression:
#In-hospital cardiac arrest likely due to hypoxia
#Acute hypoxic respiratory failure s/p intubation and MV
Intubated 09/02/2023
Extubated 09/04/23
#Aspiration pneumonia/HAP
#Septic shock due to pneumonia as above
#Lactic acidosis due to above
#Elevated troponin likely due to demand ischemia with type II OK
#Acute kidney injury
#Hyperglycemia
#Acute HFpEF exacerbation
#L pleural effusion
#Positive urinalysis with GNR
Conditions present [employer]:
CHF with ICD placement
Type 2 diabetes, suboptimal controlled.
CKD3
Abdominal aortic aneurysm.
Hemolytic anemia.
Hyponatremia.
Essential hypertension.
Paroxysmal AF
Rectal cancer resection.
Ostomy creation.
ICD placement.
Hysterectomy with Oophorectomy.
Cataract extraction.
Tonsillectomy.
Appendectomy.
Plan
Respiratory status continues to be quite tenuous-required BiPAP all night and now on high flow oxygen
Supplemental oxygen as needed-currently on high flow-attempt to wean
BiPAP as needed-tolerated last evening
Aspiration precautions
Speech therapy evaluation ongoing
Incentive spirometry encouraged
Flutter encouraged
Vest therapy added-reviewed with MANAGER INTERNET
Chest physiotherapy
Deep suction as needed
Mucolytic's-on Robitussin
Nebulizers-increased DuoNebs to 4 times daily
Decadron added with significant wheezing on 09/25
Cultures reviewed-sputum with Pseudomonas and methicillin sensitive Staph aureus
Continue antibiotics-currently on cefepime
Chest x-ray 09/06/23-bilateral pleural effusions slight increase on the right, patchy airspace disease
Consider infectious disease consultation
Monitor leukocytosis
Cardiology following-correspondence reviewed
Echocardiogram summarized below
Amiodarone 200 mg every 8 hours continues
Diuresis as tolerated-currently on hold for renal insufficiency
Monitor renal function, electrolytes, intake/output, lower extremity edema and weight
Replace electrolytes as needed
Monitor blood sugar
Insulin supplementation as needed
DVT prophylaxis-on heparin
GI prophylaxis discontinued now off ventilator
Nutrition
Early mobilization/physical and Occupational Therapy
Recommend outpatient pulm evaluation-she was last seen in our office in 2021/PFTs obtained then were normal

Family Discussions
Yared 09/03/23- Updated son at bedside; agrees with DNR, he is not sure about reintubation if she were to decompensate post extubation. He knows that she would not want tracheotomy done and would not want to be in a facility. He will try to locate her
advanced directives. He will discuss with family regarding extubation trial and re-intubation decision making.
Randy - Updates were given to the patient's family and all questions were answered. I discussed the case with the patient's [id number], Shelli.
Diagnostic Data
CXR 08/31/23- 1. Mild pulmonary vascular congestion.
2. Small left pleural effusion is suspected. Consider PA and lateral views when possible.
3. Unchanged linear opacity within the right midlung zone, consistent with subsegmental atelectasis or scarring.
CXR 09-02-2023: Progressive right lung opacity, as described; congestive heart failure versus pneumonia. Slight increased hazy retrocardiac opacity; likely small left pleural effusion, though cannot exclude associated atelectasis or pneumonia.
Endotracheal tube tip 4.5 cm above the angelica.
ECHO 10/03/21- Moderately reduced systolic function. No regional wall motion abnormalities are seen. LV ejection fraction is 40-45% by visual estimation. Mild concentric left ventricular hypertrophy. Diastolic function indeterminate (AF). Indexed LA
volume is severely abnormal (> 48 mL/m2). ICD wire seen in right ventricle. ICD/pacemaker wire present in the right atrial cavity. Mild to moderate mitral regurgitation. Mild aortic stenosis.
Mild aortic regurgitation. Mild tricuspid regurgitation. Small pericardial effusion. Compared to prior echocardiogram from December 10, 2019, LV function was previously estimated at normal, 55%. Previously, there is aortic sclerosis without stenosis
and now there is mild aortic stenosis. She was in sinus rhythm at that time although now in atrial fibrillation. Small pericardial effusion is unchanged.
TTE done on 08/31/2023 shows preserved LVEF at 50-55% with normal sized RV and mild�moderate TR with PH
PFT 10/04/21: FEV1 1.83L, 102%; FVC 2.35L 97% ratio 78. TLC 4.25L 86%, DLCO 74%
-----
Subjective Data
-
Date of Service:
Date of Service: September 07, 2023
Chief Complaint: Pulmonary Follow Up and Dyspnea Follow Up
Subjective:
Respiratory status quite tenuous, on BiPAP all night due to desaturations, now on high flow, still has difficulties mobilizing secretions, no chest pain, hemoptysis, abdominal pain
Review of Systems
General: Other (Per HPI)
Objective Data
Data Reviewed
Vital Signs / I&O:
Vital Signs
Temp Pulse Resp BP Pulse Ox
97.4 F 61 22 111/51 94
09/07/23 07:41 09/07/23 08:10 09/07/23 07:35 09/07/23 08:10 09/07/23 07:36
Intake and Output
09/06/23 09/07/23 09/08/23
06:59 06:59 06:59
Intake Total 250 / 250 60 / 60
Output Total 965 / 965 650 / 650
Balance -715 / -715 -590 / -590
SaO2: 94
Nasal Cannula flow liters per minute: 50
Physical Exam
General: Respiratory Distress (n) and Comfortable
HEENT: Normocephalic and Anicteric
Cardiovascular: Regular Rhythm and Peripheral Edema (Trace lower extremity edema)
Respiratory: Wheeze (Bilaterally), Crackles (Bilaterally), Rhonchi (Expiratory), Non-Labored Respirations, Accessory Resp Muscle Use (n) and Stridor (n)
GI: Soft, Non Distended and Non Tender
Neurology: Awake, Alert and No Motor Deficits
Skin: Warm, Good Color, Cyanosis (n), Jaundice (n) and Rash (n)
Labs/Micro/Reports
Lab Data
09/07/23 05:05
09/07/23 05:05
Laboratory Results
09/06/23
10:15
PT 17.5 H
INR 1.43
Microbiology
09/02/23 13:05 Blood/Venous Blood Culture - Preliminary
No Growth in 4 days- Final report to follow
09/02/23 15:54 Endotracheal Respiratory Culture - Final
Pseudomonas aeruginosa
S aureus-Methicillin Sensitive
09/02/23 15:54 Endotracheal Gram Stain - Final
[2023-09-07 12:23] LABS: Glucose - Point of Care 283 mg/dl (70-99)
[2023-09-07] MEDS: NOVOLOG FLEXPEN-MODERATE RESISTANCE 5 UNITS SC (12:27)
--- NOTE | 2023-09-07 15:00 | CM ---
Patient son seen at bedside, physician spoke with them about possible hospice. Patient spoke with Misa and she will request Regina a hospice nurse to come to see family tomorrow after 10am. CM will update patient son and send referral to
Hospice. CM will continue to follow for discharge planning needs.
Plan; pending discussion on hospice.
--- NOTE | 2023-09-07 15:05 | W.PN.HOSP.TC ---
Today's Communication/Plan
-
see note
Assessment / Plan
Assessment / Plan
1. Cardiac arrest likely PEA secondary to hypoxemia
Acute hypoxic respiratory failure/ VDRF
-Ongoing vent weaning/sedation vacation/spontaneous breathing trial
-Chest x-ray showing possible aspiration pneumonia versus heart failure
-Blood culture negative. Legionella/strep urinary antigen negative.
-Respiratory culture growing Pseudomonas, antibiotic to be adjusted to IV cefepime
-s/p extubation on 09/03
-Patient oxygen requirement was going down and was on 8 L mid flow yesterday, from yesterday evening requiring more oxygen and currently on high flow 40-50 L/min
-Repeat chest x-ray showing worsening right-sided effusion, bedside thoracentesis if possible.
2. Acute on chronic systolic heart failure exacerbation
History of cardiomyopathy status post ICD placement
-ICD was interrogated
-Strict I's and O's
-Renal function worsening, holding further Lasix
3. Pseudomonas pneumonia
-procalcitonin neg
-resp culture growing pseudomonas
-maintain on cefepime with tenuous pulm status
3. Dysphagia
-continue to fail ST eval
-VSE tomorrow
-Patient continued to feel speech evaluation. With worsening oxygen requirement prognosis looking poor.
4. Prolapsed ostomy
-Surgery evaluated and was able to be reduced at bedside
-Continue monitoring for output/ileus
5. E. coli UTI
-on cefepime for simultaneous pulm issues.
6. Chronic transaminitis
- likely secondary to vascular congestion secondary to heart failure vs amiodarone related vs other
7. Paroxysmal atrial fibrillation
-Continue with carvedilol and amiodarone
-Taken off anticoagulation due to severe anemia and GI bleed
8. History of iron deficiency anemia
- Trend hemoglobin. Transfuse for hemoglobin less than 7.
9 . JARED on CKD stage IIIa
-Trend creatinine with diuretics
10. Nonischemic troponin elevation
Primary hypertension
History of seizures - Continue Keppra 500 mg twice daily
Hypothyroidism - Continue Synthroid.
DVT ppx-hep sc - excessive bleeding at abd site. hold heparin
4/5 goal of care discussion held with patient daughter and son. Patient pulmonary status has declined again from yesterday evening and continues to have poor respiratory effort and cough reflex. Patient remains at high risk of aspiration/mucous
plugging/cardiopulmonary arrest.
I have discussed possible need of hospice evaluation and patient and family in agreement. If patient condition deteriorates acutely overnight patient will require to be started on comfort care.
Anticipated Discharge: 24 - 48 hours
Subjective/Interval History
-
Date of Service: September 07, 2023
Patient requiring high flow oxygen from last evening
Inspiratory effort remains poor
No cough reflex
Blood pressure becoming soft
Objective Data
-
Labs:
Laboratory Results
09/07/23
05:05
WBC 17.4 H
Hgb 8.6 L
Hct 27.2 L
Plt Count 127 L
Sodium 144
Potassium 4.5
Chloride 108 H
Carbon Dioxide 28
BUN 84 H
Creatinine 2.1 H
Glucose 126 H
Calcium 8.7
Vital Signs:
Vital Signs
Temp Pulse Resp BP Pulse Ox
97.4 F 62 19 93/49 92
09/07/23 15:03 09/07/23 12:30 09/07/23 12:30 09/07/23 12:30 09/07/23 12:30
I&O
09/06/23 09/07/23 09/08/23
06:59 06:59 06:59
Intake Total 250 / 250 60 / 60
Output Total 965 / 965 650 / 650
Balance -715 / -715 -590 / -590
Review of Systems
-
Respiratory: Reports Trouble Breathing
Cardiac: Reports No Symptoms
Abdomen/GI: Reports No Symptoms
Physical Exam
-
General: No Apparent Distress
HEENT: Oxygen (On high flow 50 L/min)
Respiratory: Rhonchi
Cardiac: Regular Rhythm and S1/S2; Negative Murmur or Rub
GI: Soft, Nontender, Nondistended and Ostomy
Musculoskeletal: No Edema
Skin: Warm; Negative Rash
Neuro: Awake, Alert, Oriented and No Motor Deficits
--- NOTE | 2023-09-07 15:45 | PTCARENOTE ---
assisted SHELBI Berumen with bedside thoracentesis on this pt. pt on HFNC, understands procedure, consent signed. pt positioned on left side, right back US done, fluid identified and site marked, prepped and draped in sterile fashion. Lidocaine to
site, catheter placed, clear serosanguinous fluid drained, total out 750ml. catheter removed, bandaid to site. pt repostioned in bed for CXR.
[2023-09-07] MEDS: ProAmatine 10 MG PO ×2 (16:09→17:10)
[2023-09-07] MEDS: LUMIGAN 0.01% 1 DROP BOTH EYES (17:09)
[2023-09-07] MEDS: LIPITOR 40 MG PO (17:09)
[2023-09-07 17:38] LABS: Glucose - Point of Care 233 mg/dl (70-99)
[2023-09-07] MEDS: NOVOLOG FLEXPEN-MODERATE RESISTANCE 3 UNITS SC ×2 (17:57→23:17)
--- NOTE | 2023-09-07 19:57 | PTCARENOTE ---
Christi dill turned off and removed d/t goal temp reached 97.6.
[2023-09-07] MEDS: FLUSH (NSS) 2 FLUSH IV (20:01)
[2023-09-07] MEDS: ROBITUSSIN TUBE (22:04)
[2023-09-07] MEDS: COREG PO (22:04)
[2023-09-07] MEDS: KEPPRA PO (22:04)
[2023-09-07] MEDS: PACERONE PO (23:16)
[2023-09-07] MEDS: LANTUS 0.149999999999999994 UNITS SC (23:16)
[2023-09-07 23:28] LABS: Glucose - Point of Care 209 mg/dl (70-99)
[2023-09-08] VITALS (11 sets, daily range): BP systolic 95–125; BP diastolic 39–74; PULSE 2–60; BMI 28.3
[2023-09-08] MEDS: MORPHINE SULFATE 1 MG IV ×2 (02:18→05:31)
[2023-09-08] MEDS: FLUSH (NSS) 2 FLUSH IV ×2 (02:18→04:14)
--- NOTE | 2023-09-08 02:33 | PTCARENOTE ---
Breathing labored. Tachypneic. Mouth wide open to breath. POX 86% on HF 60/80. Respiratory therapist TT'd. Pt agreeable to Morphine. Flor GAINES TT'd and updated on pt's status. Morphine ordered at 1mg IV. Pt received Morphine as ordered. RT placed
pt on BIPAP 15/5/15L. Currently resting comfortably. Will continue to monitor. Rest of VSS.
[2023-09-08] MEDS: DECADRON 4 MG IV (04:13)
[2023-09-08] MEDS: NOVOLOG FLEXPEN-MODERATE RESISTANCE 3 UNITS SC (05:32)
[2023-09-08] MEDS: MAXIPIME 1000 MG IV (05:32)
[2023-09-08] MEDS: STERILE WATER FOR INJECTION 10 ML IV (05:32)
[2023-09-08 05:39] LABS: Glucose - Point of Care 222 mg/dl (70-99)
--- NOTE | 2023-09-08 05:50 | PTCARENOTE ---
Pt continues on BIPAP 16/10/15L. POX 93% with RR's into the 30's-40's. Flor GAINES TT'd and order entered for Morphine 1mg IV. Pt received Morphine as ordered. Current RR's 19-22. Will continue to monitor.
[2023-09-08 06:25] LABS: Blood Urea Nitrogen 107 mg/dl (7-17); Calcium 8.4 mg/dl (8.4-10.2); Carbon Dioxide 26 mmol/L (22-30); Chloride 113 mmol/L (98-107); Estimated Creatinine Clearance 17 ml/min; Glucose 180 mg/dl (70-99); Potassium 4.6 mmol/L (3.5-5.1); Sodium 144 mmol/L (135-145); Triglycerides 65 mg/dl (10-149); eGFR 19.19
[2023-09-08] MEDS: PULMICORT 0.5 MG INH (07:44)
[2023-09-08] MEDS: DUONEB 3 ML INH ×2 (07:44→11:15)
[2023-09-08] MEDS: SYNTHROID PO (07:53)
--- NOTE | 2023-09-08 09:27 | W.PN.CARDCBS ---
Today's Communication / Plan
-
Hold diuretic given worsening renal function. We may have over diuresed her.
Continue amiodarone
Impression / Plan
-
Primary Medicinal Plant Picker: Dr. Yon Soliz
Assessment:
Presented 08/31/2023 with SOB, cough
VDRF, extubated, Presumed Aspiration/HAP
UTI
Nonischemic myocardial injury related to pneumonia and respiratory failure
Acute on chronic heart failure with recovered ejection fraction on echo 08/31/2023
respiratory failure with intubation 09/02/23
Elevated LFTs, possible passive congestion
History of cardiomyopathy with partial recovery, EF 40 to 45% by echo in 2021
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
Paroxysmal atrial fibrillation
Chronic amiodarone therapy
Prior Xarelto use, stopped 06/2023 due to anemia/thrombocytopenia
Iron deficiency anemia
Hypertension
Hyperlipidemia
Diabetes
CKD
History of TIA/CVA
History of partial motor seizure disorder
History of retinal artery branch occlusion in 2014
History of rheumatic fever as a child
Peripheral polyneuropathy
History of uterine cancer in 1989 status post hysterectomy and bilateral salpingo-oophorectomy
History of rectal cancer status postchemotherapy with 5�FEU, leucovorin, oxaliplatin
Hypoalbuminemia
ECHO 07/2013: EF 20 to 25%, global hypokinesis, moderate MR, moderate TR, PAP 40 to 45 mmHg, small circumferential pericardial effusion
ECHO 09/2017: EF 40 to 45%, ICD wire in RV, moderately dilated bilateral atria, ICD wire in right atrial cavity, moderate MR, mild VT
ECHO 12/2019: EF 55%, mild concentric LVH, stage I diastolic dysfunction, MAC, moderate MR, aortic sclerosis, mild AR, mild TR, PAP 20 to 25 mmHg, trivial pericardial effusion
Echo 10/2021: EF 40 to 45%, mild concentric LVH, ICD wire seen in right ventricle, ICD/pacer wire in right atrial cavity, mild to moderate MR, mild , mild AR, mild TR, small pericardial effusion (unchanged compared to prior). in afib during study
Echo 08/31/23: EF 50-55%, mild LVH, mild-mod MR, mild-mod TR. PA 50-55mmHg.
Plan:
s/p cardiac arrest likely PEA secondary to hypoxemia with acute hypoxic respiratory failure/ VDRF. Now extubated and requiring high flow oxygen. Continue to wean as tolerated
Currently sinus rhythm (AV Paced), on amiodarone.
Review of ICD check revealed undersensing of ventricular fibrillation ultimately requiring shock. She remains in AV paced rhythm with no events on telemetry. No significant rhythm disturbances on telemetry.
Cont amiodarone 200 mg 3 times daily - was previously on amiodarone 200 mg once daily. Continue Coreg
Abnormal troponin, suspect nonischemic myocardial injury secondary to acute hypoxic respiratory failure/pneumonia. Troponin continues to trend downward
With ventricular fibrillation, could consider ischemic evaluation, but would wait and assess how she recovers.
Acute on chronic HFpEF with improved to 50-55%.
Diuretic on hold due to rising creatinine, Creatinine jumped from 1.7->2.1->2.4
Continue Coreg as BP tolerates.
Optimization of GDMT has been difficult in the past with a renal insufficiency. Probably not SGLT2 candidate related to UTIs
Repeat chest x-ray 09/06/2023 shows bilateral pleural effusions with slight increase in right pleural effusion. Patchy airspace opacities within both lungs with differential of pneumonia versus pulmonary edema.
Continues with significant oxygen requirement.
Discussed with daughter at the bedside.
Progress Note - Medicinal Plant Picker
Subjective
Date of Service: September 08, 2023
Sleeping, difficult to arouse
Objective
Labs:
09/08/23 04:43
Labs
Hgb 8.6 g/dL (12.0-16.0) L 09/07/23 05:05
Hct 27.2 % (37.0-47.0) L 09/07/23 05:05
Plt Count 127 10^3/uL (130-400) L 09/07/23 05:05
PT 17.5 Sec (11.4-14.6) H 09/06/23 10:15
INR 1.43 09/06/23 10:15
APTT 28.3 Sec (23.4-35.0) 09/02/23 06:37
Sodium 144 mmol/L (135-145) 09/08/23 04:43
Potassium 4.6 mmol/L (3.5-5.1) 09/08/23 04:43
BUN 107 mg/dl (7-17) H* 09/08/23 04:43
Creatinine 2.4 mg/dL (0.6-1.0) H 09/08/23 04:43
Glucose 180 mg/dl (70-99) H 09/08/23 04:43
Troponins
09/06/23
18:26
Troponin I 0.065 H*
Vital Signs and I&O:
Vital Signs
Temp Pulse Resp BP Pulse Ox
97.4 F 62 41 125/57 99
09/08/23 07:40 09/08/23 08:00 09/08/23 08:00 09/08/23 08:00 09/08/23 08:24
Vital Signs
Temp Pulse Resp BP Pulse Ox
97.4 F 62 41 125/57 99
09/08/23 07:40 09/08/23 08:00 09/08/23 08:00 09/08/23 08:00 09/08/23 08:24
Intake & Output
09/06/23 09/07/23 09/08/23 09/09/23
06:59 06:59 06:59 06:59
Intake Total 250 / 250 60 / 60
Output Total 965 / 965 650 / 650 625 / 625
Balance -715 / -715 -590 / -590 -625 / -625
Physical Exam
Physical Exam
Elderly woman somewhat cachectic appearing, difficult to arouse, appears comfortable, wearing nasal cannula O2
Regular rate and rhythm with normal S1 and S2, there is no S3, there is no S4. There is a grade 1/6 basal systolic murmur and a grade 2/6 apical holosystolic murmur. There are no rubs.
Lungs with coarse breath sounds bilaterally anteriorly
Abdomen soft nontender with normal active bowel sounds, no masses
[2023-09-08] MEDS: MORPHINE SULFATE 2 MG IV ×2 (09:49→12:33)
[2023-09-08] MEDS: LOW STRENGTH ASPIRIN PO (10:20)
[2023-09-08] MEDS: KEPPRA PO (10:20)
[2023-09-08] MEDS: COREG PO (10:20)
[2023-09-08] MEDS: PACERONE PO (10:21)
[2023-09-08] MEDS: ProAmatine PO (10:21)
[2023-09-08] MEDS: ROBITUSSIN TUBE (10:22)
[2023-09-08] MEDS: SIMBRINZA 1%-0.2% OPHTH SUSP 1 DROP BOTH EYES (10:38)
--- NOTE | 2023-09-08 10:44 | HOSPNOTE ---
Meet with family, son daughter and daughter in law. Reviewed hospice services focus on comfortable dying, insurance coverage and services the hospice staff will provide. Family is interested in starting hospice. Explained she qualifies for GIP
level of care at this time. If she rally and greatly improve hospice at home and in a custodial facility was explained.
Hospice will meet with family Sunday morning and start hospice at that time. Would recommend comfort care at this time.
--- NOTE | 2023-09-08 11:19 | PTCARENOTE ---
Plan of care discussed with attending Dr. Walker, family, and kit planner, orders rec'd for comfort measures at this time. Pt c/o generalized discomfort, will medicate as appropriate and coordinate weaning off high flow 02 with RT Lees.
[2023-09-08] MEDS: NSS (PRESERVATIVE FREE) 0.5 ML IV (11:26)
[2023-09-08] MEDS: ATIVAN 1 MG IV (11:27)
--- NOTE | 2023-09-08 12:07 | PTCARENOTE ---
Magnet taped in place on pt's left chest wall to inactivate AICD per MD instructions, pt's o2 weaned to off, DNR bracelet applied. Resting comfortably s/p Ativan administration. Daughter Missy at bedside. Continuing to monitor for s/s distress.
--- NOTE | 2023-09-08 13:03 | PTCARENOTE ---
Pt no longer breathing, tele showing asystole. Family at bedside with patient. Dr. Walker called to bedside to pronounce pt.
--- NOTE | 2023-09-08 13:04 | W.PN.HOSP.TC ---
Addendum entered and electronically signed by Ulises Walker MD 09/09/23 15:45:
Addendum placed in response to CDI query
Add on diagnosis list:
Sepsis- hypothermia/hypotension from Pneuomnia
Original Note:
Today's Communication/Plan
-
Initiate comfort care measures
Assessment / Plan
Assessment / Plan
09/07
Patient remains hypoxic through night requiring BiPAP support. Patient required to be given morphine pushes overnight for dyspnea
Hospice staff discussed poor prognosis with patient family as well and patient family agreeable for comfort care.
Patient ICD has been reactivated with magnet
Patient all left lung medication has been discontinued
Comfort care medications has been ordered including IV morphine pushes

1. Cardiac arrest likely PEA secondary to hypoxemia
Acute hypoxic respiratory failure/ VDRF
-Ongoing vent weaning/sedation vacation/spontaneous breathing trial
-Chest x-ray showing possible aspiration pneumonia versus heart failure
-Blood culture negative. Legionella/strep urinary antigen negative.
-Respiratory culture growing Pseudomonas, antibiotic to be adjusted to IV cefepime
-s/p extubation on 09/03
-Patient oxygen requirement was going down and was on 8 L mid flow yesterday, from yesterday evening requiring more oxygen and currently on high flow 40-50 L/min
-Repeat chest x-ray showing worsening right-sided effusion, bedside thoracentesis if possible.
2. Acute on chronic systolic heart failure exacerbation
History of cardiomyopathy status post ICD placement
-ICD was interrogated
-Strict I's and O's
-Renal function worsening, holding further Lasix
3. Pseudomonas aeruginosa pneumonia
-procalcitonin neg
-resp culture growing pseudomonas
-maintain on cefepime with tenuous pulm status
3. Dysphagia
-continue to fail ST eval
-VSE tomorrow
-Patient continued to feel speech evaluation. With worsening oxygen requirement prognosis looking poor.
4. Prolapsed ostomy
-Surgery evaluated and was able to be reduced at bedside
-Continue monitoring for output/ileus
5. E. coli UTI
-on cefepime for simultaneous pulm issues.
6. Chronic transaminitis
- likely secondary to vascular congestion secondary to heart failure vs amiodarone related vs other
7. Paroxysmal atrial fibrillation
-Continue with carvedilol and amiodarone
-Taken off anticoagulation due to severe anemia and GI bleed
8. History of iron deficiency anemia
- Trend hemoglobin. Transfuse for hemoglobin less than 7.
9 . JARED on CKD stage IIIa
-Trend creatinine with diuretics
10. Nonischemic troponin elevation
Primary hypertension
History of seizures - Continue Keppra 500 mg twice daily
Hypothyroidism - Continue Synthroid.
DVT ppx-hep sc - excessive bleeding at abd site. hold heparin
4/5 goal of care discussion held with patient daughter and son. Patient pulmonary status has declined again from yesterday evening and continues to have poor respiratory effort and cough reflex. Patient remains at high risk of aspiration/mucous
plugging/cardiopulmonary arrest.
I have discussed possible need of hospice evaluation and patient and family in agreement. If patient condition deteriorates acutely overnight patient will require to be started on comfort care.

Anticipated Discharge: 24 - 48 hours
Subjective/Interval History
-
Date of Service: September 08, 2023
Patient again required support of BiPAP overnight
Patient required morphine support
Patient continues to remain hypoxic requiring high amount of oxygen support of BiPAP
Objective Data
-
Labs:
Laboratory Results
09/08/23
04:43
Sodium 144
Potassium 4.6
Chloride 113 H
Carbon Dioxide 26
BUN 107 H*
Creatinine 2.4 H
Glucose 180 H
Calcium 8.4
Vital Signs:
Vital Signs
Temp Pulse Resp BP Pulse Ox
96.5 F L 61 20 125/57 97
09/08/23 11:35 09/08/23 11:23 09/08/23 11:23 09/08/23 08:00 09/08/23 11:23
I&O
09/07/23 09/08/23 09/09/23
06:59 06:59 06:59
Intake Total 60 / 60
Output Total 650 / 650 625 / 625
Balance -590 / -590 -625 / -625
Review of Systems
-
Unable to obtain full review of systems at this time due to: Acuity
Physical Exam
-
General: Cachectic
HEENT: Oxygen
Respiratory: Rhonchi
Cardiac: Regular Rhythm and S1/S2; Negative Murmur
Neuro: Awake, Alert, Oriented and No Motor Deficits
--- NOTE | 2023-09-08 13:04 | W.PN.DEATH ---
Addendum entered and electronically signed by Ulises Walker MD 09/08/23 15:36:
Electronic certificate has been filed.
Original Note:
Pronouncement of
-
Called to see patient to pronounce.
No spontaneous heart tones or respirations noted.
Patient not responsive to verbal stimuli.
Patient is pronounced .
Time of : 12:59
Date of : 09/08/23
Cause of : Hypoxic respiratory failure, Pseudomonas aeruginosa pneumonia, Septic shock, Acute kidney injury
Family Notified: Yes
--- NOTE | 2023-09-09 07:47 | W.DCSUMMARY ---
Discharge Summary
Discharge Data
Date of Admission: 08/31/23
Date of Discharge: 09/08/23
-
Pending Results: No
Hospital Course
This is summary on Ms. Brittni Muhammad who on 09/08/2023 at 1259
List of hospital diagnosis:
Acute hypoxic respiratory failure requiring ventilator support
Cardiopulmonary arrest
Acute on chronic systolic congestive heart failure
Pseudomonas aeruginosa pneumonia/aspiration pneumonia
Severe dysphagia
Escherichia coli urinary tract infection
Nonischemic myocardial injury
Prolapsed ostomy
History of defibrillator placement with lead revision
Paroxysmal atrial fibrillation
Essential hypertension
Hyperlipidemia
Chronic transaminitis
Acute kidney injury on chronic disease stage III A
History of seizures
Hypothyroidism
History of stroke
History of renal artery branch occlusion
Peripheral neuropathy
History of uterine cancer in 90s post hysterectomy and bilateral salpingo-oophorectomy
History of rectal cancer s/p resection and chemotherapy
Hospital course:
Patient is 88-year-old female with above-mentioned complex past medical history was admitted for new onset of respite distress with shortness of breath/cough/wheezing. Patient was checked for COVID before ER visit and was negative at that time.
Patient have history of chronic systolic congestive heart failure with recovered EF and initial evaluation felt to be having volume overload and heart failure exacerbation. Chest x-ray was showing pulmonary vascular congestion and small pleural
effusion. Patient was started on IV Lasix and cardiology was involved in care. Follow-up with cardiogram showing preserved ejection fraction of 50 to 55% with moderate pulmonary hypertension. ICD was interrogated as well. Patient was felt to
having some component of bronchitis and was started on bronchodilator therapy and steroids. Antibiotic therapy was discontinued. On 09/01 around 5 AM in the morning patient had rapid response for respiratory distress followed by PEA cardiac arrest.
ROSC was achieved patient was intubated during arrest. Patient was transferred to ICU for further monitoring. Patient prolapsed ostomy as part of increased intra-abdominal pressure from chest compression and general surgery were able to reduce it
at bedside. Patient neurological function remained intact and repeat imaging did not show any significant new changes on pulmonary parenchyma. Patient was slowly able to be weaned off of higher vent settings and was able to be extubated.
Postextubation patient was resumed back on IV diuretic therapy. Unfortunately patient had a very poor cough reflex and inspiratory effort. Patient pulmonary status remained tenuous postextubation. Tracheal culture was growing Pseudomonas and
patient antibiotic were adjusted to cefepime. Patient continued to fail swallow evaluation and required to be maintained NPO. Pulmonary toilet measures were started without significant help. Patient hypoxia improved initially with patient able to
weaned off to mid flow 8 L although this reoccurred with patient requiring high flow oxygen. Patient renal function started declining as well. In light of poor prognosis hospice care was discussed and patient family was in agreement, patient was
transition to comfort care on morning and at 1259. Patient family at bedside.
Discharge Plan
-
Patient Disposition:
Date/Time
Date/Time: 09/08/23 12:59
Discharge Date and Time
Discharge Date/Time: 09/08/23 14:52
Print Language: MARTINIQUAIS
== END 2023-09-08 14:52 | disposition expired | DRG 871 ==
LOC: IMU 06:35
PROVIDERS: Hospitalist; Internal Medicine; Internal Medicine Critical Care Medicine; Nurse Practitioner Primary Care; Radiology Vascular & Interventional Radiology; ADMITTING PHYSICIAN Internal Medicine; ATTENDING PHYSICIAN Hospitalist; EMERGENCY PHYSICIAN Student in an Organized Health Care Education/Training Program; FAMILY PHYSICIAN Family Medicine; OTHER PHYSICIAN Internal Medicine; OTHER PHYSICIAN Internal Medicine Cardiovascular Disease; OTHER PHYSICIAN Surgery
PROC: 4B02XTZ Measurement of Cardiac Defibrillator, External Approach (ICD-10-PCS; 2023-08-31)
PROC: 0BH17EZ Insertion of Endotracheal Airway into Trachea, Via Natural or Artificial Opening (ICD-10-PCS; 2023-09-02)
PROC: 5A1945Z Respiratory Ventilation, 24-96 Consecutive Hours (ICD-10-PCS; 2023-09-02)
PROC: 0W993ZZ Drainage of Right Pleural Cavity, Percutaneous Approach (ICD-10-PCS; 2023-09-07)
DX: A41.9 Sepsis, unspecified organism (principal); I50.43 Acute on chronic combined systolic (congestive) and diastolic (congestive) heart failure; J96.01 Acute respiratory failure with hypoxia; R65.21 Severe sepsis with septic shock; J15.1 Pneumonia due to Pseudomonas; J69.0 Pneumonitis due to inhalation of food and vomit; I13.0 Hypertensive heart and chronic kidney disease with heart failure and stage 1 through stage 4 chronic kidney disease, or unspecified chronic kidney disease; D58.9 Hereditary hemolytic anemia, unspecified; E87.1 Hypo-osmolality and hyponatremia; N17.9 Acute kidney failure, unspecified; I5A Non-ischemic myocardial injury (non-traumatic); E87.20 Acidosis, unspecified; N39.0 Urinary tract infection, site not specified; I46.9 Cardiac arrest, cause unspecified; J45.909 Unspecified asthma, uncomplicated; Z95.810 Presence of automatic (implantable) cardiac defibrillator; N18.30 Chronic kidney disease, stage 3 unspecified; E11.22 Type 2 diabetes mellitus with diabetic chronic kidney disease; I71.40 Abdominal aortic aneurysm, without rupture, unspecified; E03.9 Hypothyroidism, unspecified; I48.0 Paroxysmal atrial fibrillation; Z51.5 Encounter for palliative care
CPT/HCPCS: 32555; 36600; 71045; 74018; 80048; 80053; 80202; 81003; 81015; 82248; 82330; 82728; 82805; 82962; 83036; 83540; 83550; 83605; 83690; 83735; 83880; 84100; 84132; 84145; 84302; 84439; 84443; 84478; 84484; 85025; 85027; 85610; 85730; 86850; 86900; 86901; 87040; 87070; 87077; 87086; 87147; 87186; 87205; 87449; 87641; 87899; 92526; 92610; 93005; 93306; 94002; 94003; 94640; 94644; 94660; 94668; 94669; 94760; 96374; 96376; 97163; 97167; 99285